=== PATIENT | female | born 1945 | race Caucasian/White ===

== ENCOUNTER 2019-11-13 10:00 | Outpatient (CLI) | payer MEDICARE, SELFPAY ==
--- NOTE | ~2019-11-13 | US_ITS ---
EXAMINATION: US pelvic complete w TV EXAM DATE: 11/13/2019 11:21 INDICATION: Low pelvic pain. Ablation. TECHNIQUE: Pelvic transabdominal and transvaginal sonogram was performed. There are multiple graysca le and Doppler images available for interpretation. There is no prior study for comparison. FINDINGS: Uterus measures 5.7 x 5.0 x 2.5 cm, and is morphologically normal. Endometrial stripe nas sures 3 mm, within normal limits. Trace fluid in the cervical canal. There is no free pelvic fluid. Right adnexa: The right ovary is normal in size and morphology. Left adnexa: The ovary is not identified. There is no adnexal mass. IMPRESSION: 1. Trace cervical canal fluid. 2. Normal endometrial thickness. Reviewed, dictated and finalized at location A. [employer]
== END 2019-11-13 10:01 | disposition home or self-care (01) ==
PROVIDERS: PCP Nurse Practitioner Family; Visit Provider Nurse Practitioner Family
DX: R10.2 Pelvic and perineal pain (principal)
CPT/HCPCS: 76830; 76856

== ENCOUNTER 2020-03-16 09:05 | Outpatient (CLI) | payer MEDICARE, SELFPAY ==
--- NOTE | ~2020-03-16 | US_ITS ---
EXAMINATION: US retroperitoneal comp DATE: 03/16/2020 09:53 INDICATION: Right renal cancer TECHNIQUE: Multiple ultrasound grayscale images of the kidneys were obtained. COMPARISON: Ultrasound dated 02/11/[address] dated 02/17/2019 FINDINGS: The right kidney measures 9.4 x 4.0 x 4.6 cm. The left kidney measures 11.0 x 4.7 x 4.4 cm. The kidne ys demonstrate normal echogenicity. Small region of cortical thinning with a few shadowing surgical c lips at the lower pole of the right kidney likely at the site of prior partial nephrectomy for a repo rted renal cell carcinoma. No other right renal lesions identified. There is a 1 cm hyperechoic lesio n at the medial left kidney which is without evident correlate on the prior studies. There is no hydr onephrosis in either kidney. No stones identified. The bladder is normal. IMPRESSION: 1. Indeterminate 1 cm hyperechoic nodule at the LEFT kidney which raises concern for neoplasm which could be either benign or malignant. Recommend further evaluation with pre and postcontrast MRI or CT . 2. Small region of cortical scarring at the inferior pole of the RIGHT kidney likely related to prior partial nephrectomy for reported renal cell carcinoma. Reviewed, dictated and finalized at location A. IMPRESSION: 1. Indeterminate 1 cm hyperechoic nodule at the LEFT kidney which raises deborah rn for neoplasm which could be either benign or malignant. Recommend further ev aluation with pre and postcontrast MRI or CT. 2. Small region of cortical scarring at the inferior pole of the RIGHT kidney l ikely related to prior partial nephrectomy for reported renal cell carcinoma.
== END 2020-03-16 09:06 | disposition home or self-care (01) ==
PROVIDERS: PCP Family Medicine
DX: C64.1 Malignant neoplasm of right kidney, except renal pelvis (principal)
CPT/HCPCS: 76770

== ENCOUNTER 2020-04-20 08:54 | Outpatient (CLI) | payer MEDICARE, SELFPAY ==
[2020-04-20 10:15] LABS: Thyroid Stimulating Hormone 0.84 uIU/mL (0.36-3.74)
[2020-04-22 07:50] LABS: Estimated Glomerular Filt Rate 52
== END 2020-04-20 08:55 | disposition home or self-care (01) ==
LOC: CHSLAB 08:57
PROVIDERS: PCP Family Medicine; Visit Provider Family Medicine
DX: L65.9 Nonscarring hair loss, unspecified (principal)
CPT/HCPCS: 36415; 84443

== ENCOUNTER 2020-04-22 07:36 | Outpatient (CLI) | payer MEDICARE, SELFPAY ==
--- NOTE | ~2020-04-22 | CT_ITS ---
EXAMINATION: CT abdomen wo/w con DATE: 04/22/2020 08:28 INDICATION: Left renal abnormality TECHNIQUE: Computed tomography (CT) of the abdomen was performed without and subsequently with 100 cc Omnipaque 350 intravenous contrast. Automated exposure control and iterative reconstruction techniqu e were employed. Exam dose: 507.72 mGy-cm total exam DLP. COMPARISON: 01/28/2018 CT abdomen pelvis FINDINGS: The lung bases are clear of infiltrate or consolidation. Borderline heart size. Pacemaker l letha are noted in the right atrium and right ventricle. No pericardial effusion. Small sliding hiatal hernia. 11 mm left hepatic cyst. No other hepatic space-occupying mass lesion is evident. Mild bile duct prominence is likely secondary to cholecystectomy. Normal splenic size No pancreatic mass lesion, calcification or pancreatic duct dilatation. Status post right partial nephrectomy. Approximately 7 mm fat-containing circumscribed lesion of the anteromedial aspect of the mid left kid marie, most consistent with benign renal angiomyolipoma. No suspicious renal mass lesion is evident. No renal or proximal to mid ureteral calculus or hydroureteronephrosis is evident. There is extensive calcification of the abdominal aorta as well as some calcification of the aortic b ranches including iliac arteries but no abdominal aortic aneurysm. No intraperitoneal or retroperitoneal mass lesion or adenopathy or ascites. There is diverticulosis of the left and right colon; no CT evidence of diverticulitis. No bowel obstr uction, bowel wall thickening, pneumatosis or intraperitoneal free air. There is a fat-containing umbilical hernia measuring up to 2.1 cm transverse and 1.8 cm AP dimension and 2 cm vertical dimension. Degenerative changes of the included lower thoracic spine and the lumbar spine including severe degen erative disc disease at L5-S1. IMPRESSION: 7 mm left renal probable benign angiomyolipoma Status post right partial nephrectomy 11 mm left hepatic cyst Small sliding hiatal hernia Diverticulosis of left and right colon Reviewed, dictated and finalized at Location A. Reviewed, dictated and finalized at location A.
== END 2020-04-22 07:37 | disposition home or self-care (01) ==
LOC: CHSIMG 07:38
PROVIDERS: PCP Family Medicine; Visit Provider Urology
DX: C64.1 Malignant neoplasm of right kidney, except renal pelvis (principal)
CPT/HCPCS: 74170; Q9965

== ENCOUNTER 2020-06-23 00:45 | Outpatient (CLI) | payer MEDICARE, SELFPAY ==
[2020-06-23 18:29] LABS: SARS-CoV-2 RNA PCR Negative
== END 2020-06-23 00:46 | disposition home or self-care (01) ==
LOC: ANHCOVIDDT 00:46
PROVIDERS: PCP Family Medicine; Visit Provider Specialist
DX: Z01.812 Encounter for preprocedural laboratory examination (principal); Z20.828 Contact with and (suspected) exposure to other viral communicable diseases
CPT/HCPCS: 87635; C9803; U0003

== ENCOUNTER 2020-06-25 05:20 | Day surgery (SDC) | payer MEDICARE, SELFPAY ==
[2020-06-24 14:28] VITALS: BMI 28.8
--- NOTE | 2020-06-25 07:15 | SUR.PREOP ---
ARRIVED TO [facility] 6 AMBULATORY W/ AT SIDE FOR SCHEDULED PPM GENERATOR CHANGE W/ DR. JASSO. A&OX4, DENIES PAIN OR SOB. GAIT STEADY. ORIENTED TO ROOM, PLAN OF CARE, PROCEDURE. QUESTIONS ANSWERED. IV STARTED, LABS SENT, VS OBTAINED, CHEST PREP COMPLETED, CONSENT SIGNED. WILL CONTINUE TO MONITOR.
[2020-06-25 07:25] VITALS: BP 121/71; PULSE 65; RESP 22; TEMP 36.5; O2SAT 98
[2020-06-25 07:30] VITALS: BMI 28.6
[2020-06-25 07:41] LABS: Basophils Absolute Auto 0.1 K/mm3 (0.0-0.1); Basophils Percent Auto 0.8 % (0.2-1.2); Eosinophils Absolute Auto 0.3 K/mm3 (0-0.3); Eosinophils Percent Auto 2.5 % (0-4.4); Hematocrit 45.1 % (37.0-47.0); Hemoglobin 15.2 g/dL (12.0-15.0); Immature Granulocyte Absolute 0.04 K/mm3 (0.00-0.031); Immature Granulocyte Percent A 0.4 % (0-0.5); Lymphocytes Absolute Auto 3.43 K/mm3 (0.9-3.2); Lymphocytes Percent Auto 34.5 % (18.3-44.2); Mean Corpuscular HGB Conc 33.7 g/dl (32-36); Mean Corpuscular Hemoglobin 29.7 pg (26-34); Mean Corpuscular Volume 88.3 fl (80-100); Mean Platelet Volume 12.6 fl (7.4-10.4); Monocytes Percent Auto 9.7 % (2.6-8.5); Neutrophils Absolute Auto 5.2 K/mm3 (1.3-6.7); Neutrophils Percent Auto 52.1 % (45.5-73.1); Platelet Count Result 230 k/mm3 (150-375); Red Blood Count 5.11 M/mm3 (4.2-5.4); Red Cell Distribution Width 12.5 % (11.5-14.5); White Blood Count 9.9 K/mm3 (4.5-10.0)
[2020-06-25 07:51] LABS: INR 1.1; Prothrombin Time 13.6 Seconds (11.1-14.7)
[2020-06-25 08:35] LABS: Anion Gap 8 mmol/L (8-16); Blood Urea Nitrogen 17 mg/dL (7-17); Calcium 9.7 mg/dL (8.4-10.2); Carbon Dioxide 27 mmol/L (22-30); Chloride 103 mmol/L (98-107); Estimated CRCL calculation 50 ml/min; Estimated Glomerular Filt Rate > 60; Glucose 191 mg/dL (65-105); Potassium 3.3 mmol/L (3.4-5.0); Sodium 138 mmol/L (137-145)
--- NOTE | 2020-06-25 09:26 | WPDMODSED ---
Moderate Sedation Note-Pt Data Patient Data Diagnosis: Permanent pacemaker at [facility] Present Complaint: no complaints Procedure to be performed/Plan: pacemaker generator change Allergies Allergy/AdvReac Type Severity Reaction Status Date / Time adhesive tape Allergy Intermediate Blister Verified 06/25/20 07:52 codeine Allergy Intermediate Gastrointestinal Verified 06/25/20 07:52 Upset egg Allergy Intermediate Unknown Verified 06/25/20 07:52 morphine Allergy Intermediate unknown Verified 06/25/20 07:52 Kvzdcfp-Fzu-Cfs Reductase Allergy Intermediate unknown Verified 06/25/20 07:53 Inhibitor sulfamethoxazole [Bactrim] Allergy Intermediate unknown Verified 06/25/20 07:53 sulfamethizole Allergy Unknown unknown Verified 06/25/20 07:53 trimethoprim Allergy Unknown unknown Verified 06/25/20 07:53 terfenadine [From Seldane] Allergy Unknown Verified 06/25/20 07:52 tape Allergy Intermediate Blister Uncoded 06/25/20 07:52 Home Medications Medication Instructions Recorded Confirmed Type aspirin 81 mg tablet,delayed 81 mg PO DAILY 10/28/19 06/24/20 History release mometasone 50 mcg/actuation nasal 2 spray NASAL PRN 10/28/19 06/24/20 History spray oxybutynin chloride 5 mg tablet 5 mg PO DAILY 10/28/19 06/25/20 History loratadine 10 mg tablet 10 mg PO DAILY PRN 01/27/20 06/24/20 History metformin 500 mg tablet 500 mg PO BID #90 tablet 06/21/20 06/24/20 Rx lisinopril 20 1 tablet PO DAILY #90 tablet 06/22/20 06/25/20 Rx mg-hydrochlorothiazide 25 mg tablet amlodipine 5 mg PO DAILY 06/24/20 06/24/20 History biotin 10,000 mcg PO PRN 06/24/20 06/24/20 History calcium carbonate [Tums] 500 mg PO PRN PRN 06/24/20 06/24/20 History carvedilol 25 mg PO BID 06/24/20 06/25/20 History garlic [Odor Free Garlic-X] 1 tablet PO QAM 06/24/20 06/24/20 History krill oil 500 mg PO DAILY 06/24/20 06/24/20 History Sedation/Anesthesia: No previous sedation/anesthesia problems (including family history). PMFSH Social History Social History Smoking status: Former smoker Tobacco type: cigarettes Smoking end date: 10/08/99 Alcohol intake: never Substance use: never Substance use type: does not use Living arrangements: with family Gender identity (if verbalized by the patient): Female Sexual Orientation (if Verbalized by the Patient): Straight or Heterosexual Spiritual care concerns: No Mod Sed Physical Exam Physical Exam Pre Procedural Exam: Normal: Appearance, Neck, Throat, Airway, Lungs, Heart Size, Heart Rate, Heart Rhythm, Neuro Exam and Extremities Hours since solid foods: 12 Hours since liquid intake: 12 Internal Medicine - PN: Obj Da Vital Signs Vital Signs: Vital Signs - 24 hr 06/25/20 07:25 Temperature 36.5 C Pulse Rate 65 Respiratory Rate 22 H Blood Pressure 121/71 Pulse Oximetry 98 Labs CBC & Chem 7: 06/25/20 07:25 06/25/20 07:59 Labs: Laboratory Results - last 24 hr 06/25/20 06/25/20 06/25/20 07:25 07:25 07:59 WBC 9.9 RBC 5.11 Hgb 15.2 H Hct 45.1 MCV 88.3 MCH 29.7 MCHC 33.7 RDW 12.5 Plt Count 230 MPV 12.6 H Immature Gran % (Auto) 0.4 Neut % (Auto) 52.1 Lymph % (Auto) 34.5 Faulk % (Auto) 9.7 H Eos % (Auto) 2.5 Baso % (Auto) 0.8 Lymph # (Auto) 3.43 H Faulk # (Auto) 1.0 H Eos # (Auto) 0.3 Baso # (Auto) 0.1 Abs Immat Gran (auto) 0.04 H Absolute Neuts (auto) 5.2 Absolute Nucleated RBC 0.0 Nucleated RBC % 0.0 PT 13.6 INR 1.1 Sodium 138 Potassium 3.3 L Chloride 103 Carbon Dioxide 27 Anion Gap 8 BUN 17 Creatinine 0.80 Estim Creat Clear Calc 50 Estimated GFR > 60 Glucose 191 H Calcium 9.7 ASA Classification/Sedation ASA Classification/Sedation ASA Class: II Emergent: No Risks: Risks, benefits and alternatives explained and patient/family accepted plan for sedation. Patient re-evalua
--- NOTE | 2020-06-25 10:07 | ECG_ITS ---
Measurements Intervals [place] Rate: 61 P: 16 IL: 177 QRS: -84 QRSD: 223 T: 91 QT: 562 QTc: 567 Interpretive Statements ELECTRONIC ATRIAL PACEMAKER WITH INHIBITION ELECTRONIC VENTRICULAR PACEMAKER BASELINE ARTIFACT- I, III, AVR, AVL, V2 NO FURTHER INTERPRETATION IS POSSIBLE ATYPICAL ECG Electronically Signed On 06-25-2020 12:00:42 CDT by Christopher Bennett D.O.
--- NOTE | 2020-06-25 10:10 | WPDCARDPROC ---
Cardiac Cath Procedure Note Date of procedure:: 06/25/20 Performing physician:: Toy Escalera MD Indication:: permanent pacemaker implanted for treatment of complete heart block. Device at [facility] Brief clinical history:: this is a 75-year-old woman who has a chronically implanted Medtronic dual-chamber pacemaker for treatment of complete heart block. She currently has her 2nd generator in place and the device is at [facility] and is admitted today for elective generator change Procedure Procedure performed:: explantation of depleted pacemaker pulse generator implantation of new dual-chamber pulse generator using existing leads Sedation/Medication given:: fentanyl 50 mg Versed 2 mg case start time 9:42 a.m. case end time 10:07 a.m. sedation provided by Wanda Jackson RN, trained observer Access site:: existing chronic left subclavian pocket Estimated blood loss:: 10 cc Procedure note:: patient was brought to the cardiac catheterization lab in postabsorptive state the left anterior chest wall was prepped and draped in the normal sterile fashion. The chronically implanted pacemaker pocket was easily identified. 1% lidocaine was used to provide local anesthesia over the incision. I made an incision using the plasma blade overlying the inferior of the 2 incisions the palpable generator in the pocket. The incision was then carried down to the fibrous pocket than the plasma blade was used to open the fibrous pocket. Electrocautery was used to provide cutaneous hemostasis. Following opening the pocket the chronically implanted generator in the attached leads were removed and found to be visually intact and unremarkable in appearance. The torque wrench was used to disconnect the atrial lead and connected to the new generator as detailed below. Following this the torque wrench was used to disconnect the ventricular lead and this was transferred to the new generator the detailed below. Following this the pocket was irrigated with antibiotic infused saline. The patient had a Tyrex antibiotic sleeve placed over the generator trimmed to size of the generator and this was placed into the pocket. The pocket was then closed in layers using 3 0 Vicryl in an interrupted fashion for the subcutaneous tissue and 4 0 Vicryl running subcuticular fashion for the skin. The pocket was then dressed with a Aquacel dressing. The patient was taken to the holding area in stable condition there were no apparent procedural complications and the procedure was well tolerated. Findings:: The explanted device is Medtronic dual-chamber pacemaker model ADD R01 , serial [id number]. device was regionally implanted 05/20/2009. The newly implanted generator is a Medtronic dual-chamber pacemaker model WIDR01 serial number [id number]. device is programmed in the DDDR mode lower rate limit 60 upper rate limit 130 AV delay 180/150 millisecond. The atrial lead is a chronically implanted Medtronic bipolar lead [id number], serial number [id number]. the P-waves are sensed at 1.4 mV pacing threshold 1.0 volts at 0.4 milliseconds pacing impedance 361 Ohms. the ventricular lead is a Medtronic bipolar lead model 5076-52 serial [id number]. there are no intrinsic R-waves to sense. Threshold is 0.75 volts at 0.4 milliseconds pacing impedance 931 over Conclusion:: 1. successful uncomplicated explantation of depleted permanent pacemaker pulse generator 2. successful implantation of new permanent Medtronic dual-chamber pulse generator for ongoing treatment of complete heart block in this 75-year-old patient [facility] Escalera [facility]
[2020-06-25 10:30] VITALS: BP 98/62; PULSE 60; RESP 12; TEMP 36.3; O2SAT 96
[2020-06-25 10:45] VITALS: BP 95/63; PULSE 66; RESP 16; O2SAT 98
[2020-06-25 11:00] VITALS: BP 98/61; PULSE 67; RESP 17; O2SAT 97
[2020-06-25 11:15] VITALS: BP 99/63; PULSE 66; RESP 16; O2SAT 98
[2020-06-25 11:30] VITALS: BP 92/66; PULSE 65; RESP 17; O2SAT 98
--- NOTE | 2020-06-25 11:50 | SUR.PHASEII ---
Pt. and spouse given discharge education on wound care, prescription, and follow-up appointment. Pt. and spouse verbalize understanding of discharge education. Pt. transported to vehicle via wheelchair.
== END 2020-06-25 12:04 | disposition home or self-care (01) ==
PROVIDERS: PCP Family Medicine; Visit Provider Specialist
PROC: 0JPT0PZ Removal of Cardiac Rhythm Related Device from Trunk Subcutaneous Tissue and Fascia, Open Approach (ICD-10-PCS; CPT 33228; principal; 2020-06-25 08:30)
DX: Z45.010 Encounter for checking and testing of cardiac pacemaker pulse generator [battery] (principal); I44.2 Atrioventricular block, complete; I25.10 Atherosclerotic heart disease of native coronary artery without angina pectoris; I35.1 Nonrheumatic aortic (valve) insufficiency; Z79.82 Long term (current) use of aspirin; Z79.84 Long term (current) use of oral hypoglycemic drugs; Z87.891 Personal history of nicotine dependence
CPT/HCPCS: 33213; 36415; 80048; 85025; 85610; C1785; J0690; J2250; J3010; J7040

== ENCOUNTER 2020-06-30 12:27 | Emergency (ER) | payer MEDICARE, SELFPAY ==
[2020-06-30] VITALS (12 sets, daily range): BP systolic 103–137; BP diastolic 64–76; PULSE 59–80; RESP 20–22; TEMP 36.7–37.1; O2SAT 94–99
--- NOTE | ~2020-06-30 | XR_ITS ---
EXAMINATION: XR chest 2V DATE: 06/30/2020 13:17 INDICATION: Dyspnea. TECHNIQUE: Frontal and lateral views of the chest were obtained on 3 radiographs. COMPARISON: Chest 2 views 03/07/2017, chest CT 02/17/2019 FINDINGS: There are peripheral reticular opacities in the lower lung zones. No pleural effusion or pn eumothorax. Cardiomegaly is noted. There is a left chest wall pacer with leads in the right atrium an d right ventricle. Surgical clips in the right upper quadrant are likely from cholecystectomy. IMPRESSION: 1. Peripheral reticular opacities in the lower lung zones, consistent with mild pulmonary edema versu s mild chronic interstitial lung disease. 2. Cardiomegaly. Reviewed, dictated and finalized at location A. IMPRESSION: 1. Peripheral reticular opacities in the lower lung zones, consistent with mild pulmonary edema versus mild chronic interstitial lung disease. 2. Cardiomegaly.
--- NOTE | ~2020-06-30 | CT_ITS ---
EXAMINATION: CTA chest PE protocol DATE: 06/30/2020 14:32 INDICATION: Dyspnea. TECHNIQUE: Computed tomography angiography (CTA) of the chest was performed with 100 mL Omnipaque-350 intravenous contrast timed to evaluate the pulmonary arteries. Coronal maximum intensity projection 3D-reconstructions were created by the technologist. Automated exposure control and iterative reconst ruction technique were employed. The dose-length product was 329.05 mGy-cm. COMPARISON: Chest CT 02/17/2019, CT abdomen 04/22/2020 FINDINGS: Again seen are diffuse peripheral reticular opacities in the lungs. No bronchiectasis or ho neycombing. Again seen are a few scattered nodules in the lungs bilaterally measuring up to 4 mm, lik eric benign. No pleural effusion. There is a 3.2 cm nodule in right thyroid lobe that was benign at [facility] on 11/07/17. Cardiomegaly is noted. There are coronary artery calcifications. There is a left cruz st wall pacer with leads in the right atrium and right ventricle. There is no pulmonary embolus. Ther e is a small sliding hiatal hernia. There are changes of cholecystectomy. There is a 7 mm mass of fat in left kidney, consistent with an angiomyolipoma. There is a 10 mm cyst in the liver. There is bernice re thoracic spondylosis. IMPRESSION: 1. No pulmonary embolus. 2. Diffuse peripheral reticular opacities in the lungs, consistent with mild chronic interstitial jayant g disease. 3. Cardiomegaly. 4. Small sliding hiatal hernia. Reviewed, dictated and finalized at location A. IMPRESSION: 1. No pulmonary embolus. 2. Diffuse peripheral reticular opacities in the lungs, consistent with mild ch ronic interstitial lung disease. 3. Cardiomegaly. 4. Small sliding hiatal hernia.
--- NOTE | 2020-06-30 12:37 | ECG_ITS ---
Measurements Intervals [place] Rate: 65 P: 52 AR: 212 QRS: -87 QRSD: 221 T: 87 QT: 538 QTc: 562 Interpretive Statements ATRIAL SENSE- ELECTRONIC VENTRICULAR PACEMAKER BASELINE ARTIFACT- I, II, III, AVR, AVL, AVF NO FURTHER INTERPRETATION IS POSSIBLE ATYPICAL ECG Electronically Signed On 06-30-2020 14:31:35 CDT by Christopher Bennett D.O.
--- NOTE | 2020-06-30 12:43 | ED.SOB ---
HPI - SOB/Dyspnea General Chief Complaint: Shortness of Breath/Dyspnea Stated Complaint: SOB Time Seen by Provider: 06/30/20 12:43 Source: patient Mode of arrival: ambulatory Limitations: no limitations History of Present Illness HPI Narrative: 76-year-old woman with a history of complete heart block who is 2 days status post replacement of her pacemaker comes in today complaining of sudden shortness of breath while she was out today. Patient states that she has had no chest pain, nausea, vomiting, sweating, lightheadedness , leg swelling or tenderness, or weakness. Exertion makes the shortness of breath worse. she denies having previous similar symptoms. MD elicited complaint: shortness of breath Pertinent past history: congestive heart failure and other ( Coronary artery disease, AR/MR) Onset (ago): hour(s) (1) Timing: constant Severity: severe Exacerbating factors: exertion Relieving factors: nothing Treatment prior to arrival: none Related Data Home oxygen amount: none Home Medications Medication Instructions Recorded Confirmed aspirin 81 mg tablet,delayed 81 mg PO DAILY 10/28/19 06/30/20 release mometasone 50 mcg/actuation nasal 2 spray NASAL PRN 10/28/19 06/30/20 spray oxybutynin chloride 5 mg tablet 5 mg PO DAILY 10/28/19 06/30/20 loratadine 10 mg tablet 10 mg PO DAILY PRN 01/27/20 06/30/20 amlodipine [Norvasc] 5 mg PO HS 06/24/20 06/30/20 biotin 10,000 mcg PO PRN 06/24/20 06/30/20 calcium carbonate [Tums] 500 mg PO PRN PRN 06/24/20 06/30/20 carvedilol 25 mg PO BID 06/24/20 06/30/20 garlic [Odor Free Garlic-X] 1 tablet PO QAM 06/24/20 06/30/20 krill oil 500 mg PO DAILY 06/24/20 06/30/20 calcium carbonate-vitamin D3 1 tablet PO DAILY 06/30/20 06/30/20 [Caltrate with Vitamin D3] lutein 20 mg PO DAILY 06/30/20 06/30/20 metformin 250 mg PO DAILY 06/30/20 06/30/20 metformin 500 mg PO HS 06/30/20 06/30/20 sy-eg-PH-vit K-vvanh-[id number]-coQ10 1 cap PO DAILY 06/30/20 06/30/20 [Daily Multivitamin] Allergies Allergy/AdvReac Type Severity Reaction Status Date / Time adhesive tape Allergy Intermediate Blister Verified 06/30/20 13:09 codeine Allergy Intermediate Gastrointestinal Verified 06/30/20 13:09 Upset egg Allergy Intermediate Unknown Verified 06/30/20 13:09 morphine Allergy Intermediate unknown Verified 06/30/20 13:09 Cdkorfa-Ptv-Upe Reductase Allergy Intermediate unknown Verified 06/30/20 13:09 Inhibitor sulfamethoxazole [Bactrim] Allergy Intermediate unknown Verified 06/30/20 13:09 sulfamethizole Allergy Unknown unknown Verified 06/30/20 13:09 trimethoprim Allergy Unknown unknown Verified 06/30/20 13:09 terfenadine [From Seldane] Allergy Unknown Verified 06/30/20 13:09 tape Allergy Intermediate Blister Uncoded 06/30/20 13:09 Review of Systems Constitutional: Constitutional: Denies chills and Denies fever(s) Eyes: Eyes: Denies change in vision and Denies photophobia ENT: Denies dysphagia, Denies nasal congestion and Denies sore throat Cardiovascular: Cardiovascular: Denies chest pain and Denies radiating jaw, neck or arm pain Respiratory: Respiratory: Denies chest congestion, Denies cough, Reports dyspnea and Denies wheezing Gastrointestinal: Gastrointestinal: Denies abdominal pain, Denies nausea and Denies vomiting Genitourinary: Genitourinary: Denies nocturia and Denies dysuria Musculoskeletal: Musculoskeletal: Denies back pain, Denies arthralgias and Denies joint swelling Integumentary/Breasts: Skin/Breast: Denies pruritus, Denies erythema and Denies rash Neurologic: Denies vertigo, Denies dizziness and Denies syncope Hematologic/Lymphatic: Hematologic/Lymphatic: Denies easy bleeding and Denies easy bruising Allergic/Immunologic: Allergic/Immunologic: Denies lip swelling and Denies tongue swelling PMFSH Past Medical History Medical History (Updated 06/30/20 @ 16:25 by Giuseppe Wilkinson MD) DM2 (diabetes mellitus, type 2) Esophageal stricture Heart block AV third degree Hiatal he
[2020-06-30 13:05] LABS: Basophils Absolute Auto 0.04 K/mm3 (0.00-0.10); Basophils Percent Auto 0.5 % (0.0-1.0); Eosinophils Absolute Auto 0.17 K/mm3 (0.02-0.50); Hematocrit 43.9 % (35.0-42.0); Hemoglobin 14.7 g/dL (11.7-13.8); Immature Granulocyte Absolute 0.03 K/mm3 (0.00-0.00); Immature Granulocyte Percent A 0.4 % (0.0-0.0); Lymphocytes Absolute Auto 3.23 K/mm3 (1.10-4.50); Lymphocytes Percent Auto 38.1 % (18.0-42.0); Mean Corpuscular HGB Conc 33.5 g/dL (32.0-36.0); Mean Corpuscular Hemoglobin 29.5 pg (27.0-31.0); Mean Platelet Volume 11.5 fl (9.2-11.8); Monocytes Absolute Auto 0.48 K/mm3 (0.10-0.90); Monocytes Percent Auto 5.7 % (2.0-11.0); Neutrophils Absolute Auto 4.5 K/mm3 (1.7-7.2); Neutrophils Percent Auto 53.3 % (50.0-70.0); Platelet Count Result 301 K/mm3 (150-420); Red Blood Count 4.99 M/mm3 (4.20-5.40); Red Cell Distribution Width 12.2 % (11.6-14.4); White Blood Count 8.5 K/mm3 (4.8-10.8)
[2020-06-30 13:16] LABS: Partial Thromboplastin Time 24.4 SEC (22.3-31.6)
[2020-06-30 13:22] LABS: BNP 48 pg/mL (0-100)
[2020-06-30 13:32] LABS: Alanine Aminotransferase 18 U/L (14-59); Albumin Level 3.6 g/dL (3.4-5.0); Alkaline Phosphatase 64 U/L (46-116); Anion Gap 9 mmol/L (8-16); Aspartate Amino Transferase 14 U/L (15-37); Bilirubin,Total 0.5 mg/dL (0.00-1.00); Blood Urea Nitrogen 13 mg/dL (7-18); Calcium 9.6 mg/dL (8.5-10.1); Carbon Dioxide 28 mmol/L (21-32); Chloride 102 mmol/L (98-108); Estimated CRCL calculation 37 ml/min; Estimated Glomerular Filt Rate 54; Glucose 206 mg/dL (70-99); Osmolality Calculated 294 mOsm/kg (285-295); Potassium 3.2 mmol/L (3.5-5.1); Sodium 139 mmol/L (136-145); Total Protein 8.3 g/dL (6.4-8.2); Troponin I 0.05 ng/mL (0.00-0.056)
[2020-06-30 13:36] LABS: Prothrombin Time 10.7 Seconds (9.64-11.0)
[2020-06-30 13:47] LABS: D Dimer 1.44 mg/L (0.19-0.50)
[2020-06-30 16:10] LABS: Troponin I 0.06 ng/mL (0.00-0.056)
[2020-06-30] MEDS: ENOXAPARIN 100 MG/ML SYRINGE (17:07)
[2020-06-30] MEDS: ASPIRIN 81 MG CHEWABLE TABLET 324 MG PO (17:07)
--- NOTE | 2020-06-30 17:18 | PC.NURSE ---
1707 lOVENOX 70MG SUBQ GIVEN IN RIGHT LOWER ABD
[2020-06-30 19:05] LABS: Troponin I 0.06 ng/mL (0.00-0.056)
--- NOTE | 2020-06-30 20:26 | PC.NURSE ---
2024 SPOKE WITH [facility] ACCESS NO BED AT THIS TIME
--- NOTE | 2020-06-30 23:37 | PC.NURSE ---
report to HAKAN , [facility] staff. pt loaded to cot. alert and stable . no complaints voiced. discomfort to iv site to right AC. pt declined to pull and switch sites at this time. will wait for [facility] staff to decide if needed per pt.
== END 2020-06-30 23:38 | disposition short-term general hospital (02) ==
PROVIDERS: Emergency Provider Emergency Medicine; PCP Family Medicine
DX: R06.00 Dyspnea, unspecified (principal); R79.9 Abnormal finding of blood chemistry, unspecified; R94.39 Abnormal result of other cardiovascular function study; E11.9 Type 2 diabetes mellitus without complications; E78.5 Hyperlipidemia, unspecified; I10 Essential (primary) hypertension; Z87.891 Personal history of nicotine dependence
CPT/HCPCS: 36415; 71046; 71275; 80053; 83880; 84484; 85025; 85380; 85610; 85730; 93005; 96372; 99285; A9270; J1650; Q9965

== ENCOUNTER 2020-07-15 09:10 | Outpatient (CLI) | payer MEDICARE, SELFPAY ==
[2020-07-15 09:30] LABS: Basophils Absolute Auto 0.06 K/mm3 (0.00-0.10); Basophils Percent Auto 0.7 % (0.0-1.0); Eosinophils Absolute Auto 0.24 K/mm3 (0.02-0.50); Hematocrit 42.5 % (35.0-42.0); Hemoglobin 14.1 g/dL (11.7-13.8); Immature Granulocyte Absolute 0.02 K/mm3 (0.00-0.00); Immature Granulocyte Percent A 0.2 % (0.0-0.0); Lymphocytes Absolute Auto 3.04 K/mm3 (1.10-4.50); Lymphocytes Percent Auto 37.9 % (18.0-42.0); Mean Corpuscular HGB Conc 33.2 g/dL (32.0-36.0); Mean Corpuscular Hemoglobin 29.6 pg (27.0-31.0); Mean Corpuscular Volume 89.1 fL (78.0-102.0); Mean Platelet Volume 11.5 fl (9.2-11.8); Monocytes Absolute Auto 0.63 K/mm3 (0.10-0.90); Monocytes Percent Auto 7.9 % (2.0-11.0); Neutrophils Percent Auto 50.3 % (50.0-70.0); Platelet Count Result 262 K/mm3 (150-420); Red Blood Count 4.77 M/mm3 (4.20-5.40); Red Cell Distribution Width 12.6 % (11.6-14.4)
[2020-07-15 09:41] LABS: INR 1.1; Prothrombin Time 11.5 Seconds (9.64-11.0)
[2020-07-15 10:52] LABS: Alanine Aminotransferase 19 U/L (14-59); Albumin Level 3.7 g/dL (3.4-5.0); Alkaline Phosphatase 52 U/L (46-116); Anion Gap 9 mmol/L (8-16); Aspartate Amino Transferase < 10 U/L (15-37); Bilirubin,Total 0.8 mg/dL (0.00-1.00); Blood Urea Nitrogen 12 mg/dL (7-18); Calcium 9.9 mg/dL (8.5-10.1); Carbon Dioxide 30 mmol/L (21-32); Chloride 103 mmol/L (98-108); Estimated Glomerular Filt Rate > 60; Free T4 Free Thyroxine 1.03 ng/dL (0.76-1.46); Glucose 137 mg/dL (70-99); Magnesium 1.4 mg/dL (1.8-2.4); Osmolality Calculated 295 mOsm/kg (285-295); Potassium 3.6 mmol/L (3.5-5.1); Sodium 142 mmol/L (136-145); Thyroid Stimulating Hormone 1.77 uIU/mL (0.36-3.74); Total Protein 7.8 g/dL (6.4-8.2); Vitamin B12 212 pg/mL (193-986)
[2020-07-18 23:36] LABS: Vitamin D 25 Hydroxy 37 ng/mL (30-100)
== END 2020-07-15 09:11 | disposition home or self-care (01) ==
LOC: CHSLAB 09:17
PROVIDERS: PCP Nurse Practitioner Family; Visit Provider Internal Medicine Cardiovascular Disease
DX: E87.6 Hypokalemia (principal); L65.9 Nonscarring hair loss, unspecified; E83.42 Hypomagnesemia; Z79.899 Other long term (current) drug therapy; Z01.810 Encounter for preprocedural cardiovascular examination; I42.9 Cardiomyopathy, unspecified; R94.39 Abnormal result of other cardiovascular function study
CPT/HCPCS: 36415; 80053; 82306; 82607; 83735; 84439; 84443; 85025; 85610

== ENCOUNTER 2020-07-17 02:15 | Outpatient (CLI) | payer MEDICARE, SELFPAY ==
[2020-07-17 18:59] LABS: SARS-CoV-2 RNA PCR Negative
== END 2020-07-17 02:16 | disposition home or self-care (01) ==
LOC: ANHCOVIDDT 02:15
PROVIDERS: PCP Nurse Practitioner Family; Visit Provider Internal Medicine Cardiovascular Disease
DX: Z01.812 Encounter for preprocedural laboratory examination (principal); Z20.828 Contact with and (suspected) exposure to other viral communicable diseases
CPT/HCPCS: 87635; C9803; U0003

== ENCOUNTER 2020-07-20 01:24 | Day surgery (SDC) | payer MEDICARE, SELFPAY ==
[2020-07-19 14:33] VITALS: BMI 28.9
[2020-07-20] VITALS (8 sets, daily range): BP systolic 114–140; BP diastolic 49–97; PULSE 61–84; RESP 14–16; TEMP 36.3–36.5; O2SAT 96–100; BMI 28.6
--- NOTE | 2020-07-20 09:36 | WPDMODSED ---
Moderate Sedation Note-Pt Data Patient Data Allergies Allergy/AdvReac Type Severity Reaction Status Date / Time adhesive tape Allergy Intermediate Blister Verified 07/08/20 11:02 codeine Allergy Intermediate Gastrointestinal Verified 07/08/20 11:02 Upset egg Allergy Intermediate Unknown Verified 07/08/20 11:02 morphine Allergy Intermediate unknown Verified 07/08/20 11:02 Vgtikeo-Chg-Oom Reductase Allergy Intermediate unknown Verified 07/08/20 11:02 Inhibitor sulfamethoxazole [Bactrim] Allergy Intermediate unknown Verified 07/08/20 11:02 sulfamethizole Allergy Unknown unknown Verified 07/08/20 11:02 trimethoprim Allergy Unknown unknown Verified 07/08/20 11:02 terfenadine [From Seldane] Allergy Unknown Verified 07/08/20 11:02 tape Allergy Intermediate Blister Uncoded 07/08/20 11:02 Home Medications Medication Instructions Recorded Confirmed Type aspirin 81 mg tablet,delayed 81 mg PO DAILY 10/28/19 07/19/20 History release mometasone 50 mcg/actuation nasal 2 spray NASAL PRN 10/28/19 07/19/20 History spray loratadine 10 mg tablet 10 mg PO DAILY PRN 01/27/20 07/19/20 History biotin 10,000 mcg PO PRN 06/24/20 07/19/20 History carvedilol 25 mg PO BID 06/24/20 07/19/20 History garlic [Odor Free Garlic-X] 1 tablet PO QAM 06/24/20 07/19/20 History krill oil 500 mg PO DAILY 06/24/20 07/19/20 History calcium carbonate-vitamin D3 1 tablet PO DAILY 06/30/20 07/19/20 History [Caltrate with Vitamin D3] metformin 500 mg PO BID 06/30/20 07/19/20 History amlodipine 5 mg tablet 5 mg PO HS #90 tablet 07/09/20 07/19/20 Rx lisinopril 20 mg PO DAILY 07/19/20 07/19/20 History wdqpnfmbzsjq-rcn-kzee-FA-vit K 1 tablet PO DAILY 07/19/20 07/19/20 History [Adults Multivitamin] oxybutynin chloride 5 mg PO BID 07/19/20 07/19/20 History zinc sulfate 220 mg PO DAILY 07/19/20 07/19/20 History Current Medications: Active Medications Sodium Chloride (Normal Saline Iv) 500 mls @ 100 mls/hr IV CONT .Q5H [facility] Sedation/Anesthesia: No previous sedation/anesthesia problems (including family history). [facility] Past Medical History Medical History (Updated 07/08/20 @ 11:43 by Caren Oliveira NP) DM2 (diabetes mellitus, type 2) Esophageal stricture Heart block AV third degree Hiatal hernia Hyperlipidemia Hypertension Kidney malignancy Non-ST elevation myocardial infarction (NSTEMI) Overweight Pacemaker 2003 Peptic ulcer Thyroid nodule Urinary incontinence Surgical History Surgical History H/O prior ablation treatment uterine History of appendectomy History of cholecystectomy History of kidney removal Right Kidney Family History Family History Mother Diabetes mellitus Hypertension Father Hypertension Family history of cardiovascular disease Brother Family history of type 2 diabetes mellitus Hypertension Other Family history of arthritis Family history of gout Social History Social History Smoking status: Former smoker Tobacco type: cigarettes Smoking end date: 10/08/00 Alcohol intake: never Substance use: never Substance use type: does not use Living arrangements: with family Gender identity (if verbalized by the patient): Female Spiritual care concerns: No Mod Sed Physical Exam Physical Exam Pre Procedural Exam: Normal: Airway Hours since solid foods: 10 Hours since liquid intake: 10 Internal Medicine - PN: Obj Da Vital Signs Vital Signs: Vital Signs - 24 hr 07/20/20 09:05 Temperature 36.3 C L Pulse Rate 84 Respiratory Rate 15 Blood Pressure 116/97 H Pulse Oximetry 99 Meds/Results Medications: Active Medications Generic Name Dose Route Start Last Admin Trade Name Freq PRN Reason Stop Dose Admin Sodium Chloride 500 mls @ 100 mls/hr 07/20/20 06:00 Normal Saline Iv IV CONT
--- NOTE | 2020-07-20 10:19 | PM.IMHP ---
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 Patient has been experiencing worsening shortness of breath. Her recent echocardiogram showed apgg-bx-jalmpudf LV systolic dysfunction with segmental wall motion abnormality in addition to moderate AI. She had MPI done on 06/21/2020 which reported hypokinesis in the mid inferior segment, apical anterior segment, apical septal segment, apical inferior segment, apical lateral segment, apical segment; medium-sized area of moderate ischemia involving mid to apical inferior wall and apex consistent with ischemia. Based on this, she was brought to the catheterization laboratory evaluate her coronary anatomy. [facility], [facility] Past Medical History Medical History DM2 (diabetes mellitus, type 2) Esophageal stricture Heart block AV third degree Hiatal hernia Hyperlipidemia Hypertension Kidney malignancy Non-ST elevation myocardial infarction (NSTEMI) Overweight Pacemaker 2003 Peptic ulcer Thyroid nodule Urinary incontinence Surgical History Surgical History H/O prior ablation treatment uterine History of appendectomy History of cholecystectomy History of kidney removal Right Kidney Family History Family History Mother Diabetes mellitus Hypertension Father Hypertension Family history of cardiovascular disease Brother Family history of type 2 diabetes mellitus Hypertension Other Family history of arthritis Family history of gout Social History Social History Smoking status: Former smoker Tobacco type: cigarettes Smoking end date: 10/08/00 Alcohol intake: never Substance use: never Substance use type: does not use Living arrangements: with family Gender identity (if verbalized by the patient): Female Spiritual care concerns: No Meds Home Medications and Allergies Home Medications Medication Instructions Recorded Confirmed Type aspirin 81 mg tablet,delayed 81 mg PO DAILY 10/28/19 07/19/20 History release mometasone 50 mcg/actuation nasal 2 spray NASAL PRN 10/28/19 07/19/20 History spray loratadine 10 mg tablet 10 mg PO DAILY PRN 01/27/20 07/19/20 History biotin 10,000 mcg PO PRN 06/24/20 07/19/20 History carvedilol 25 mg PO BID 06/24/20 07/19/20 History garlic [Odor Free Garlic-X] 1 tablet PO QAM 06/24/20 07/19/20 History krill oil 500 mg PO DAILY 06/24/20 07/19/20 History calcium carbonate-vitamin D3 1 tablet PO DAILY 06/30/20 07/19/20 History [Caltrate with Vitamin D3] metformin 500 mg PO BID 06/30/20 07/19/20 History amlodipine 5 mg tablet 5 mg PO HS #90 tablet 07/09/20 07/19/20 Rx lisinopril 20 mg PO DAILY 07/19/20 07/19/20 History gpwepajyxslo-kkt-ctuy-FA-vit K 1 tablet PO DAILY 07/19/20 07/19/20 History [Adults Multivitamin] oxybutynin chloride 5 mg PO BID 07/19/20 07/19/20 History zinc sulfate 220 mg PO DAILY 07/19/20 07/19/20 History Allergies Allergy/AdvReac Type Severity Reaction Status Date / Time adhesive tape Allergy Intermediate Blister Verified 07/08/20 11:02 codeine Allergy Intermediate Gastrointestinal Verified 07/08/20 11:02 Upset egg Allergy Intermediate Unknown Verified 07/08/20 11:02 morphine Allergy Intermediate unknown Verified 07/08/20 11:02 Fgfuhln-Xql-Eds Reductase Allergy Intermediate unknown Verified 07/08/20 11:02 Inhibitor sulfamethoxazole [Bactrim] Allergy Int
--- NOTE | 2020-07-20 10:24 | WPDCARDPROC ---
Cardiac Cath Procedure Note Date of procedure:: 07/20/20 Performing physician:: Torin Prescott MD Procedure Procedure note:: LEFT HEART CATHETERIZATION AND CORONARY ANGIOGRAM REPORT DATE OF PROCEDURE: 07/20/2020 INDICATION FOR PROCEDURE: CHF, abnormal MPI BRIEF CLINICAL HISTORY:Lanette Irvin is a 75 year old female With past medical history of complete heart block status post Medtronic DDDR pacemaker on 05/20/2009; nonischemic cardiomyopathy with improvement of LV systolic function, valvular heart disease -AI/MR, hypertension, history of ?zjar-eo-urxpskca nonobstructive CAD, renal cell carcinoma status post right partial nephrectomy. Patient has been experiencing worsening shortness of breath. Her recent echocardiogram showed dojx-qo-zvkknwak LV systolic dysfunction with segmental wall motion abnormality in addition to moderate AI. She had MPI done on 06/21/2020 which reported hypokinesis in the mid inferior segment, apical anterior segment, apical septal segment, apical inferior segment, apical lateral segment, apical segment; medium-sized area of moderate ischemia involving mid to apical inferior wall and apex consistent with ischemia. Based on this, she was brought to the catheterization laboratory evaluate her coronary anatomy. Benefits and risks of the procedure were discussed with the patient in depth, and informed consent was obtained prior to the procedure. Risks of the procedure include but are not limited to vascular complications including groin hematoma, retroperitoneal bleed, vessel perforation; periprocedural UT, cardiac arrhythmias, stroke, contrast induced nephropathy, and . After discussing all the benefits, risks and alternatives, patient was willing to proceed with the procedure. PROCEDURES PERFORMED: 1. Left heart catheterization- Selective left and right coronary angiogram; left ventriculogram and hemodynamic assessment 2. Selective right common femoral angiogram and deployment of Angio-Seal hemostatic device 3. Moderate sedation-CPT code 30441 MODERATE SEDATION: Midazolam 1 mg; fentanyl 25 mcg; Start time 0954 , Stop time 1013 ; Total wuzk-sf-iciv time 20 minutes; Wanda Jackosn RN was trained observer for moderate sedation. ACCESS SITE: Right common femoral artery PROCEDURE NOTE: After obtaining informed consent, patient was brought to catheterization lab and prepped and draped in a usual sterile manner. After local anesthesia with lidocaine, right common femoral artery access was taken with micropuncture needle followed by insertion of a 5 Kiswahili sheath. Selective left and right coronary angiogram was performed using 5 Kiswahili JL4 and JR4 catheters respectively. Orthogonal views were taken. Next, a 5 Kisw[place]ili pigtail catheter was advanced in the LV cavity and was flushed with normal saline. LV pressure measurement was performed. After this, left ventriculogram was performed. The catheter was flushed again, and gradient across the aortic valve was measured on the pullback of the catheter. Dual-chamber pacemaker RA/RV leads are seen on fluoroscopy. Finally, selective right common femoral angiogram was performed followed by successful deployment of Angio-Seal vascular closure device. Patient tolerated procedure well without any immediate procedure related complications. FINDINGS: LEFT MAIN CORONARY: the left main coronary artery is a medium caliber vessel, with minimal narrowing in the distal most segment before it trifurcates into LAD, ramus intermedius and left circumflex branches. LEFT ANTERIOR DESCENDING ARTERY: The LAD is a medium caliber vessel in the proximal and mid segment, tapers distally and becomes a very small caliber vessel in the distal segment with slightly sluggish blood flow. No significant focal stenosis seen. Diagonal branches are small to medium-sized vessel without significant focal stenosis RAMUS INTERMEDIUS: A medium caliber vessel, bifurcates in the mid segment, no signif
--- NOTE | 2020-07-20 12:17 | SUR.PHASEII ---
1215-pt up to the chair. Groin soft and non-tender, no evidence of bleeding or hematoma noted. AOx4. Moderate right pedal pulse noted. Groin and pulse checked before and after rising. Will continue to monitor.
--- NOTE | 2020-07-20 13:15 | SUR.PHASEII ---
Pt. and daughter given discharge education following cardiac cath. Pt. and daughter verbalize understanding of discharge education. Pt. escorted to vehicle via wheelchair to be driven home by daughter.
== END 2020-07-20 13:20 | disposition home or self-care (01) ==
PROVIDERS: PCP Nurse Practitioner Family; Visit Provider Internal Medicine Cardiovascular Disease
PROC: 4A023N7 Measurement of Cardiac Sampling and Pressure, Left Heart, Percutaneous Approach (ICD-10-PCS; CPT 93452; principal; 2020-07-20 09:30)
DX: I25.10 Atherosclerotic heart disease of native coronary artery without angina pectoris (principal); R93.1 Abnormal findings on diagnostic imaging of heart and coronary circulation; I42.9 Cardiomyopathy, unspecified; I11.0 Hypertensive heart disease with heart failure; I50.20 Unspecified systolic (congestive) heart failure; I34.0 Nonrheumatic mitral (valve) insufficiency; I35.1 Nonrheumatic aortic (valve) insufficiency; E11.9 Type 2 diabetes mellitus without complications; I44.2 Atrioventricular block, complete; I25.2 Old myocardial infarction; E78.5 Hyperlipidemia, unspecified; Z95.0 Presence of cardiac pacemaker; Z90.5 Acquired absence of kidney; Z85.528 Personal history of other malignant neoplasm of kidney; Z79.82 Long term (current) use of aspirin; Z79.84 Long term (current) use of oral hypoglycemic drugs; Z87.891 Personal history of nicotine dependence
CPT/HCPCS: 93458; C1760; C1887; C1894; G0269; J1644; J2250; J3010; J7040

== ENCOUNTER 2020-07-30 17:15 | Outpatient (NON) | payer MEDICARE, SELFPAY | END 2020-07-30 17:16 | LOC: CHSLAB 17:17 | PROVIDERS: Visit Provider Family Medicine | DX: R10.9 Unspecified abdominal pain (principal) | CPT/HCPCS: 87086 ==

== ENCOUNTER 2021-07-01 10:59 | Outpatient (CLI) | payer MEDICARE, SELFPAY ==
--- NOTE | ~2021-07-01 | XR_ITS ---
EXAMINATION: XR hand LT 2V DATE: 07/01/2021 11:17 INDICATION: Left hand pain. TECHNIQUE: 2 views of left hand were obtained. COMPARISON: None. FINDINGS: There is ulnar subluxation of second distal phalanx with respect to the middle phalanx. No fracture. There is mild osteoarthritis of triscaphe joint and first carpometacarpal joint. There is s evere osteoarthritis of second and third distal interphalangeal joints and third proximal interphalan geal joint. There is mild to moderate osteoarthritis of most of the other interphalangeal joints. IMPRESSION: 1. Polyarticular osteoarthritis. Reviewed, dictated and finalized at location A.
== END 2021-07-01 11:00 | disposition home or self-care (01) ==
LOC: CHSIMG 11:02
PROVIDERS: PCP Family Medicine; Visit Provider Nurse Practitioner Family
DX: M79.642 Pain in left hand (principal)
CPT/HCPCS: 73120

== ENCOUNTER 2021-10-10 11:52 | Outpatient (CLI) | payer MEDICARE, SELFPAY ==
[2021-10-10 13:14] LABS: SARS-CoV-2 RNA PCR Positive (Negative)
== END 2021-10-10 11:53 | disposition home or self-care (01) ==
LOC: CHSLAB 11:56
PROVIDERS: PCP Family Medicine; Visit Provider Family Medicine
DX: U07.1 COVID-19 (principal)
CPT/HCPCS: C9803; U0003; U0005

== ENCOUNTER 2022-01-04 08:49 | Outpatient (CLI) | payer MEDICARE, SELFPAY ==
[2022-01-04 09:03] LABS: Hematocrit 44.7 % (35.0-42.0); Hemoglobin 14.8 g/dL (11.7-13.8); Mean Corpuscular HGB Conc 33.1 g/dL (32.0-36.0); Mean Corpuscular Volume 90.7 fL (78.0-102.0); Mean Platelet Volume 11.3 fl (9.2-11.8); Platelet Count Result 247 K/mm3 (150-420); Red Blood Count 4.93 M/mm3 (4.20-5.40); Red Cell Distribution Width 13.3 % (11.6-14.4); White Blood Count 9.3 K/mm3 (4.8-10.8)
[2022-01-04 09:11] LABS: Hemoglobin A1C 6.5 % (<5.7)
[2022-01-04 09:57] LABS: Alanine Aminotransferase 19 U/L (14-59); Albumin Level 3.7 g/dL (3.4-5.0); Alkaline Phosphatase 50 U/L (46-116); Anion Gap 9 mmol/L (8-16); Aspartate Amino Transferase 18 U/L (15-37); Bilirubin,Total 0.9 mg/dL (0.00-1.00); Blood Urea Nitrogen 16 mg/dL (7-18); Calcium 9.6 mg/dL (8.5-10.1); Carbon Dioxide 29 mmol/L (21-32); Chloride 102 mmol/L (98-108); Cholesterol 213 mg/dL (0-200); Estimated Glomerular Filt Rate > 60; Glucose 116 mg/dL (70-99); HDL Direct 47 mg/dL (40-60); LDL Cholesterol Calculated 140 mg/dL (<130); Osmolality Calculated 292 mOsm/kg (285-295); Potassium 3.9 mmol/L (3.5-5.1); Sodium 140 mmol/L (136-145); Total Protein 7.6 g/dL (6.4-8.2); Triglycerides 130 mg/dL (0-150)
[2022-01-04 09:58] LABS: Thyroid Stimulating Hormone Reflex 1.75 u/IU/mL (0.36-3.74)
== END 2022-01-04 08:50 | disposition home or self-care (01) ==
LOC: CHSLAB 08:52
PROVIDERS: PCP Family Medicine; Visit Provider Nurse Practitioner Family
DX: E78.5 Hyperlipidemia, unspecified (principal); I10 Essential (primary) hypertension; E11.9 Type 2 diabetes mellitus without complications; E04.1 Nontoxic single thyroid nodule
CPT/HCPCS: 36415; 80053; 80061; 83036; 84443; 85027

== ENCOUNTER 2022-01-30 09:58 | Outpatient (NON) | payer MEDICARE, SELFPAY | END 2022-01-30 09:59 | disposition home or self-care (01) | LOC: CHSLAB 10:00 | PROVIDERS: PCP Nurse Practitioner Family; Visit Provider Nurse Practitioner Family | DX: L03.90 Cellulitis, unspecified (principal) | CPT/HCPCS: 87070; 87205 ==

== ENCOUNTER 2022-03-25 09:44 | Outpatient (CLI) | payer MEDICARE, SELFPAY ==
[2022-03-25 11:42] LABS: SARS-CoV-2 RNA PCR Negative (Negative)
== END 2022-03-25 09:45 | disposition home or self-care (01) ==
PROVIDERS: PCP Family Medicine; Visit Provider Family Medicine
DX: Z01.818 Encounter for other preprocedural examination (principal); Z20.822 Contact with and (suspected) exposure to COVID-19
CPT/HCPCS: C9803; U0003; U0005

== ENCOUNTER 2022-05-19 08:57 | Outpatient (CLI) | payer MEDICARE, SELFPAY ==
[2022-05-19 09:47] LABS: Cholesterol 191 mg/dL (0-200); HDL Direct 44 mg/dL (40-60); LDL Cholesterol Calculated 119 mg/dL (<130); Triglycerides 139 mg/dL (0-150)
== END 2022-05-19 08:58 | disposition home or self-care (01) ==
PROVIDERS: PCP Family Medicine; Visit Provider Internal Medicine Cardiovascular Disease
DX: M79.10 Myalgia, unspecified site (principal); T48.6X5A Adverse effect of antiasthmatics, initial encounter; Z78.9 Other specified health status; E78.5 Hyperlipidemia, unspecified
CPT/HCPCS: 36415; 80061

== ENCOUNTER 2022-06-15 10:07 | Outpatient (CLI) | payer MEDICARE, SELFPAY ==
--- NOTE | ~2022-06-15 | XR_ITS ---
EXAMINATION: XR chest 2V DATE: 06/15/2022 10:48 INDICATION: Hypertension and dyspnea on exertion for preoperative evaluation prior to back surgery. TECHNIQUE: PA and lateral views of the chest were obtained. COMPARISON: Chest radiograph and CT dated 06/30/20 FINDINGS: The lungs are clear with no focal airspace opacities, pulmonary edema, pleural effusion or pneumothor ax. The cardiomediastinal silhouette is normal. Dual lead pacemaker seen with leads projecting over t he expected locations of the right atrium and right ventricle. Post cystectomy clips in right upper q uadrant. Mild thoracolumbar dextrocurvature with severe spondylosis. IMPRESSION: 1. No acute cardiopulmonary disease. Reviewed, dictated and finalized at location A.
--- NOTE | 2022-06-15 10:12 | ECG_ITS ---
Measurements Intervals [place] Rate: 89 P: 249 ND: 175 QRS: -78 QRSD: 226 T: 90 QT: 469 QTc: 572 Interpretive Statements ELECTRONIC ATRIAL PACEMAKER ELECTRONIC VENTRICULAR PACEMAKER BASELINE ARTIFACT- I, III, AVR, AVF NO FURTHER INTERPRETATION IS POSSIBLE ATYPICAL ECG COMPARED TO ECG 06/30/2020 12:41:46 NO SIGNIFICANT CHANGES Electronically Signed On 06-15-2022 11:30:00 CDT by Christopher Bennett D.O.
[2022-06-15 10:31] LABS: Basophils Absolute Auto 0.08 K/mm3 (0.00-0.10); Basophils Percent Auto 0.8 % (0.0-1.0); Eosinophils Absolute Auto 0.37 K/mm3 (0.02-0.50); Eosinophils Percent Auto 3.9 % (1.0-6.0); Hematocrit 43.2 % (35.0-42.0); Hemoglobin 14.2 g/dL (11.7-13.8); Immature Granulocyte Absolute 0.03 K/mm3 (0.00-0.00); Immature Granulocyte Percent A 0.3 % (0.0-0.0); Lymphocytes Absolute Auto 3.11 K/mm3 (1.10-4.50); Lymphocytes Percent Auto 32.7 % (18.0-42.0); Mean Corpuscular HGB Conc 32.9 g/dL (32.0-36.0); Mean Corpuscular Hemoglobin 29.8 pg (27.0-31.0); Mean Corpuscular Volume 90.6 fL (78.0-102.0); Mean Platelet Volume 11.4 fl (9.2-11.8); Monocytes Absolute Auto 0.89 K/mm3 (0.10-0.90); Monocytes Percent Auto 9.3 % (2.0-11.0); Platelet Count Result 253 K/mm3 (150-420); Red Blood Count 4.77 M/mm3 (4.20-5.40); Red Cell Distribution Width 11.9 % (11.6-14.4); White Blood Count 9.5 K/mm3 (4.8-10.8)
[2022-06-15 11:00] LABS: Alanine Aminotransferase 18 U/L (14-59); Albumin Level 3.7 g/dL (3.4-5.0); Alkaline Phosphatase 64 U/L (46-116); Anion Gap 9 mmol/L (8-16); Aspartate Amino Transferase 21 U/L (15-37); Bilirubin,Total 0.8 mg/dL (0.00-1.00); Blood Urea Nitrogen 15 mg/dL (7-18); Calcium 9.9 mg/dL (8.5-10.1); Carbon Dioxide 29 mmol/L (21-32); Chloride 99 mmol/L (98-108); Estimated Glomerular Filt Rate 59; Free T4 Free Thyroxine 1.19 ng/dL (0.76-1.46); Glucose 153 mg/dL (70-99); Osmolality Calculated 287 mOsm/kg (285-295); Potassium 3.7 mmol/L (3.5-5.1); Sodium 137 mmol/L (136-145); Thyroid Stimulating Hormone 0.94 uIU/mL (0.36-3.74); Total Protein 8.1 g/dL (6.4-8.2)
[2022-06-15 11:08] LABS: Appearance Urine Clear (Clear); Bilirubin Urine Negative (Negative); Color Urine Light Yellow (Yellow); Glucose Urine UA Negative (Negative); Ketones Urine Negative (Negative); Leukocyte Esterase Ur 3+ LEU/UL (Negative); Nitrate Urine Negative (Negative); Protein Urine Negative (Negative); Urobilinogen Urine 0.2 mg/dL (0.2-1.0); pH Urine 6.5 (5.0-8.0)
[2022-06-15 11:15] LABS: Add Urine Microscopic? YES; Bacteria Urine 2+ /hpf; Blood Urine Trace-Intact (Negative); RBC Urine None seen /hpf (0-2); Squamous Epithelial Cell Urine Moderate /hpf (Few)
[2022-06-15 13:04] LABS: Hemoglobin A1C 6.7 % (<5.7)
== END 2022-06-15 10:08 | disposition home or self-care (01) ==
LOC: CHSLAB 10:12
PROVIDERS: PCP Nurse Practitioner Family; Visit Provider Nurse Practitioner Family
DX: E11.9 Type 2 diabetes mellitus without complications (principal); Z01.818 Encounter for other preprocedural examination; R82.90 Unspecified abnormal findings in urine
CPT/HCPCS: 36415; 71046; 80053; 81001; 83036; 84439; 84443; 85025; 87086; 87088; 93005

== ENCOUNTER 2022-07-20 21:10 | Emergency (ER) | payer MEDICARE, SELFPAY ==
--- NOTE | ~2022-07-20 | CT_ITS ---
EXAMINATION: CT cervical spine wo con DATE: 07/20/2022 22:20 INDICATION: Neck pain TECHNIQUE: Computed tomography (CT) of the cervical spine was performed without intravenous contrast. The dose-length product (DLP) was 244.81 mGy-cm. Automated exposure control and iterative reconstruc tion technique were employed. COMPARISON: 07/10/2017 FINDINGS: There are changes of posterior fusion and laminectomy from C3 through T1. There is severe l oss of intervertebral disc space height at C3-4, C4-5, C5-6, and C6-7. The odontoid is intact. Small degenerative osteophytes project from the anterior endplates of multiple vertebral bodies. The verteb ral body heights are normal. No fracture is identified although sensitivity slightly limited by strea k artifact from the spinal fusion hardware. IMPRESSION: 1. Changes of posterior fusion and laminectomy from C3 through T1 and severe cervical spondylosis wit hout acute findings. Reviewed, dictated and finalized at location F. IMPRESSION: 1. Changes of posterior fusion and laminectomy from C3 through T1 and severe ce rvical spondylosis without acute findings.
[2022-07-20 21:30] VITALS: BP 139/88; PULSE 97; RESP 19; TEMP 37; O2SAT 97
--- NOTE | 2022-07-20 21:32 | PC.NURSE ---
Pt was very irritable with RN about getting an IV. Pt stated that she wants only a scan of her back to see if everything was ok from neck surgery.
--- NOTE | 2022-07-20 22:35 | ED.GENADULT ---
HPI - General Adult General Chief complaint: Extremity Problem,Nontraumatic Stated complaint: neck pain Time Seen by Provider: 07/20/22 21:15 Source: patient and family Mode of arrival: ambulatory Limitations: no limitations History of Present Illness HPI narrative: this is a 77-year-old female with a history of cervical neck fusion with recent surgery approximately 2 to 3 weeks ago doing well and has been taking medication as needed for pain discomfort, today while sitting she heard a pop in her neck and some discomfort after that and presented to the ER for further evaluation. Has good range of motion although it is tender she has some medication for pain at home as well as muscle relaxer given by her neurosurgeon. There is no numbness or tingling in her in her neck shoulders or any radiation into her arms or hands, there is no fever chills no chest pain no shortness of breath. Onset (ago): hour(s) Location: neck Radiation: non-radiation Severity: moderate Quality: aching Pain Consistency: constant and intermittent Relieving factors: medication Exacerbating factors: movement Associated symptoms: denies other symptoms Related Data Home Medications Medication Instructions Recorded Confirmed aspirin 81 mg tablet,delayed 81 mg PO DAILY 10/28/19 06/15/22 release (Adult Low Dose Aspirin) mometasone 50 mcg/actuation nasal 2 spray intranasal PRN 10/28/19 06/15/22 spray (Nasonex) loratadine 10 mg tablet (Claritin) 10 mg PO DAILY PRN Congestion 01/27/20 06/15/22 biotin 10,000 mcg PO PRN 06/24/20 06/15/22 garlic (Odor Free Garlic-X tablet) 1 tablet PO QAM 06/24/20 06/15/22 calcium carbonate 600 mg-vitamin 1 tablet PO DAILY 06/30/20 06/15/22 D3 20 mcg (800 unit) tablet (Caltrate with Vitamin D3) zinc sulfate 50 mg zinc (220 mg) 220 mg PO DAILY 07/19/20 06/15/22 tablet Allergies Allergy/AdvReac Type Severity Reaction Status Date / Time adhesive tape Allergy Intermediate Blister Verified 06/15/22 09:37 amoxicillin Allergy Intermediate struggle Verified 06/15/22 09:37 to breath and diarrhea codeine Allergy Intermediate Gastrointestinal Verified 06/15/22 09:37 Upset morphine Allergy Intermediate unknown Verified 06/15/22 09:37 Skfgyfx-VMM-GvC Reductase Allergy Intermediate unknown Verified 06/15/22 09:37 Inhibitor [Mxyppsv-Ziz-Yir Reductase Inhibitor] sulfamethoxazole [Bactrim] Allergy Intermediate unknown Verified 06/15/22 09:37 sulfamethizole Allergy Unknown unknown Verified 06/15/22 09:37 trimethoprim Allergy Unknown unknown Verified 06/15/22 09:37 terfenadine [From Seldane] Allergy Unknown Verified 06/15/22 09:37 tape Allergy Intermediate Blister Uncoded 06/15/22 09:37 Review of Systems Review of Systems: All systems reviewed & are unremarkable except as noted in HPI and below PMFSH Past Medical History Medical History CHF (congestive heart failure) DM2 (diabetes mellitus, type 2) Esophageal stricture Heart block AV third degree Hiatal hernia Hyperlipidemia Hypertension Kidney malignancy Overweight Pacemaker 2003 Peptic ulcer Thyroid nodule Urinary incontinence Surgical History Surgical History H/O prior ablation treatment uterine History of appendectomy History of cholecystectomy History of fusion of cervical spine Posterior cervical decompression and fusion C3-T1 on 06/22/2022 History of kidney removal Right Kidney Family History Family History Mother Diabetes mellitus Hypertension Father Hypertension Family history of cardiovascular disease Brother Family history of type 2 diabetes mellitus Hypertension Other Family history of arthritis Family history of gout Social History Social History Smoking status: Former smo
[2022-07-20 22:51] VITALS: BP 130/90; PULSE 78; RESP 18; TEMP 36.6; O2SAT 99
== END 2022-07-20 22:58 | disposition home or self-care (01) ==
PROVIDERS: Emergency Provider Emergency Medicine; PCP Family Medicine
DX: M54.2 Cervicalgia (principal); I50.9 Heart failure, unspecified; E11.9 Type 2 diabetes mellitus without complications; E78.5 Hyperlipidemia, unspecified; I10 Essential (primary) hypertension; Z87.891 Personal history of nicotine dependence
CPT/HCPCS: 72125; 99284

== ENCOUNTER 2022-07-23 11:22 | Emergency (ER) | payer MEDICARE, SELFPAY ==
--- NOTE | 2022-07-23 11:24 | ED.WOUNDLAC ---
HPI - Wound/Laceration General Chief Complaint: Wound/Laceration Stated Complaint: INICISION OPENED Time Seen by Provider: 07/23/22 11:24 Source: patient and RN notes reviewed Mode of arrival: ambulatory Limitations: no limitations History of Present Illness HPI narrative: Patient had cervical spine surgery with hardware on 06/22/2022. She said this morning she was bending forward and she felt something dripping down her neck. She had family look at it and her wound has opened up on her posterior neck over her hardware. There was some bleeding. And clots present inside the wound. No evidence of any infection. She otherwise has no other complaints. Patient was recently here and said that she was bending her neck and felt a pop and then what they thought was a muscle spasm into her shoulder. She had a repeat CT scan which showed all the hardware in place. Onset (ago): minute(s) (15) Location: neck Place: home Associated symptoms: none Related Data Home Medications Medication Instructions Recorded Confirmed aspirin 81 mg tablet,delayed 81 mg PO DAILY 10/28/19 06/15/22 release (Adult Low Dose Aspirin) mometasone 50 mcg/actuation nasal 2 spray intranasal PRN 10/28/19 06/15/22 spray (Nasonex) loratadine 10 mg tablet (Claritin) 10 mg PO DAILY PRN Congestion 01/27/20 06/15/22 biotin 10,000 mcg PO PRN 06/24/20 06/15/22 garlic (Odor Free Garlic-X tablet) 1 tablet PO QAM 06/24/20 06/15/22 calcium carbonate 600 mg-vitamin 1 tablet PO DAILY 06/30/20 06/15/22 D3 20 mcg (800 unit) tablet (Caltrate with Vitamin D3) zinc sulfate 50 mg zinc (220 mg) 220 mg PO DAILY 07/19/20 06/15/22 tablet Allergies Allergy/AdvReac Type Severity Reaction Status Date / Time adhesive tape Allergy Intermediate Blister Verified 07/23/22 11:47 amoxicillin Allergy Intermediate struggle Verified 07/23/22 11:47 to breath and diarrhea codeine Allergy Intermediate Gastrointestinal Verified 07/23/22 11:47 Upset morphine Allergy Intermediate unknown Verified 07/23/22 11:47 Uzabkxi-WAN-StZ Reductase Allergy Intermediate unknown Verified 07/23/22 11:47 Inhibitor [Niyyqho-Acs-Ifc Reductase Inhibitor] sulfamethoxazole [Bactrim] Allergy Intermediate unknown Verified 07/23/22 11:47 sulfamethizole Allergy Unknown unknown Verified 07/23/22 11:47 trimethoprim Allergy Unknown unknown Verified 07/23/22 11:47 terfenadine [From Seldane] Allergy Unknown Verified 07/23/22 11:47 tape Allergy Intermediate Blister Uncoded 07/23/22 11:47 Review of Systems Review of Systems: All systems reviewed & are unremarkable except as noted in HPI and below PMFSH Past Medical History Medical History CHF (congestive heart failure) DM2 (diabetes mellitus, type 2) Esophageal stricture Heart block AV third degree Hiatal hernia Hyperlipidemia Hypertension Kidney malignancy Overweight Pacemaker 2003 Peptic ulcer Thyroid nodule Urinary incontinence Surgical History Surgical History H/O prior ablation treatment uterine History of appendectomy History of cholecystectomy History of fusion of cervical spine Posterior cervical decompression and fusion C3-T1 on 06/22/2022 History of kidney removal Right Kidney Family History Family History Mother Diabetes mellitus Hypertension Father Hypertension Family history of cardiovascular disease Brother Family history of type 2 diabetes mellitus Hypertension Other Family history of arthritis Family history of gout Social History Social History Smoking status: Former smoker Tobacco type: cigarettes Smoking end date: 10/08/00 Alcohol intake: never Substance use: never Substance use type: does not use Gender identity (if verbalized by the patient): Fe
[2022-07-23 11:38] VITALS: BP 100/64; PULSE 85; RESP 16; TEMP 36.3; O2SAT 97
--- NOTE | 2022-07-23 12:08 | PC.NURSE ---
surgeon at [facility] would like patient to have Ancef prior to transfer, patient is refusing because she doesn't want to be stuck twice for an iv. report given to Viviane dang rn at [facility]
[2022-07-23 12:10] VITALS: BP 100/64; PULSE 85; RESP 16; TEMP 36.3; O2SAT 97
== END 2022-07-23 12:11 | disposition short-term general hospital (02) ==
PROVIDERS: Emergency Provider Emergency Medicine; PCP Family Medicine
DX: S11.90XA Unspecified open wound of unspecified part of neck, initial encounter (principal); Z98.890 Other specified postprocedural states; I50.9 Heart failure, unspecified; E11.9 Type 2 diabetes mellitus without complications; E78.5 Hyperlipidemia, unspecified; I10 Essential (primary) hypertension; Z87.891 Personal history of nicotine dependence
CPT/HCPCS: 99282

== ENCOUNTER 2022-09-20 14:56 | Outpatient (RCR) | payer MEDICARE, SELFPAY ==
--- NOTE | 2022-09-20 15:59 | PTOPEVAL1 ---
Assessment and note entered by JT File, PT Evaluation Information Assessment Status Evaluation Diagnosis s/p cervical ruthie/screw placement Onset 06/22/22 Subjective Information patient reports she had surgery on 06/22/22. she reports then on 07/24/22 she had the stiches in her neck break open and she was bleeding. she reports she went back into surgery to clean out any bacteria and she was closed back up. she reports she was fearful to move after this 2nd surgery. she reports she is now having trouble holding her head up, especially while walking. she reports she also has pain and tightness in the neck in the cold weather. she reports she is on a 10lb lifting restriction. xi has a history of multiple L ulnar surgeries and R carpal tunnel surgery. Reported Pain Level Pain Score 0: Self Report Assessment PT Clinical Summary mrs. victoria presents to skilled PT services to evaluation and treatment s/p cervical ruthie and screw stabilization. she presents this date with decreased rom, weakness, core instability, and unsteady balance/gait. she is complicated by prior nerve injuries and surgeries to the L elbow and R wrist. she would do well to attend and participate in skilled PT services to improve her objective/functional deficits and progress towards a return to her prior level functional activity performance/quality of life. Plan of Care Interventions Gait Training,Hot Pack/Cold Pack,Manual Therapy, Neuro Re-education,Patient/Caregiver Educati, Therapeutic Activities,Therapeutic Exercise PT Services Indicated Yes Treatment Frequency and 3x weekly for 12 visits Duration These treatments will address the objective and functional deficits as defined above. The patient will be advanced safely and appropriately in order for the patient to progress towards his/her prior level of function. Additional exercises will be introduced and as well as a comprehensive home exercise program upon discharge, if needed, ?to ensure carryover of functional gains achieved in the clinic. This treatment plan has been reviewed and agreement upon by the patient.
--- NOTE | 2022-10-26 16:09 | PTOPPROG ---
Assessment and note entered by Chen Durham, PT Evaluation Information Assessment Status Evaluation Diagnosis s/p cervical ruthie/screw placement Onset 06/22/22 Subjective Information Lanette reports on 10/22/22, she was reaching into her vehicle to hand her a bottle of water and she lost her balance and fell back hitting her head on the vehicle door. She states she and her heard a loud pop in her neck and she immediately had a headache. The headache subsided within 30 minutes but she has had increased neck stiffness since then. She reports she is having occasional achiness in the neck but her chief complaint is tightness. She is limiting her lifting to 10 lbs or less and she can manage that without difficulty. She is driving but feels tired after driving too much. Assessment PT Clinical Summary Lanette Irvin has completed 12 skilled PT visits since following a cervical stabilization surgery performed on 06/22/22. She has had a worsening of symptoms since bumping her head on the car door on 10/22/22. She is reporting increased stiffness then with occasional achiness on the sides of her neck. She objectively demonstrates slightly improved cervical and shoulder AROM as well as mild strength improvements. She continues to demonstrate tension and tenderness in cervical musculature, decreased cervical and shoulder ROM, and decreased upper extremity and cotton cleaner strength. She will continue to benefit from skilled PT to address tension with manual therapy and to progress UE strengthening. Plan of Care Interventions Manual Therapy,Patient/Caregiver Educati, Therapeutic Activities,Therapeutic Exercise PT Services Indicated Yes Treatment Frequency and 2 times a week for 8 visits Duration These treatments will address the objective and functional deficits as defined above. The patient will be advanced safely and appropriately in order for the patient to progress towards his/her prior level of function. Additional exercises will be introduced and as well as a comprehensive home exercise program upon discharge, if needed, ?to ensure carryover of functional gains achieved in the clinic. This treatment plan has been reviewed and agreement upon by the patient.
--- NOTE | 2022-10-31 15:48 | OTOPEVAL1 ---
Assessment and note entered by Carole Barth OT Evaluation Information Assessment Status Evaluation Diagnosis L hand weakness Onset 1999 Subjective Information The patient reports pain in L hand at palm when stretching fingers out but no pain in resting position. The patient reports being unable to grasp a jar because she cannot open her hand fully and drops things out of her L hand often. Reported Pain Level Pain Score 0: Self Report Pain Score 0: Self Report Assessment OT Clinical Summary The patient is a 77 year old female who was referred to outpatient OT due to L hand weakness and pain. 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 The patient requires skilled OT to address tight muscles of L volar hand, ROM, and strength deficits in order to regain function of hand. Plan of Care Interventions Therapeutic Exercise,Manual Therapy,Neuro Re- education,Therapeutic Activities,Hot Pack/Cold Pack,Electrical Stimulation,Self-Care/Home Management,Check Out for Orthotic/Pr,Ultrasound OT Services Indicated Yes Treatment Frequency and 2x/week for 6 weeks. Duration These treatments will address the objective and functional deficits as defined above. The patient will be advanced safely and appropriately in order for the patient to progress towards his/her prior level of function. Additional exercises will be introduced and as well as a comprehensive home exercise program upon discharge, if needed, ?to ensure carryover of functional gains achieved in the clinic. This treatment plan has been reviewed and agreement upon by the patient.
--- NOTE | 2022-11-29 16:16 | OTOPDC ---
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 The patient demonstrates signficiant progress in pinch strength due to exercises performed and taught during therapy sessions. The patient is discharged this date due to no longer requiring the skills of a therapist as the patient has not demonstrated progress and will continue to have weakness presenting as nerve damage. The patient was educated on UE HEP to continue to perform stretching exercises, splint schedule and UE exercises in order to maintain current level of ROM. Plan of Care OT Services Indicated No
--- NOTE | 2022-11-29 16:38 | PTOPDC ---
Assessment and note entered by JT File, PT Evaluation Information Assessment Status Discharge Diagnosis s/p cervical ruthie/screw placement Onset 06/22/22 Subjective Information patient reports she feels Good this date. she reports she is ready to be done with therapy. she reports the only continued complaints she has are with her L hand and middle and ring finger not extending. Reported Pain Level Pain Score 0: Self Report Pain Score 0: Self Report Assessment PT Clinical Summary mrs. victoria presents to skilled PT for her 20th skilled PT visit this date. she has made progress towards all goals, but continues to be limited in shoulder strength, cervical rom, and functional hand position of the L UE. she no longer has pain in the neck, and is compliant with her HEP. she will DC skilled PT and continue with HEP independent at home. Plan of Care Treatment Frequency and DC to independent HEP Duration
== END 2022-11-29 16:22 | disposition home or self-care (01) ==
LOC: CHSPT 14:56
DX: M54.12 Radiculopathy, cervical region (principal)
CPT/HCPCS: 97035; 97110; 97140; 97161; 97165; 97530; 97535

== ENCOUNTER 2023-02-14 11:16 | Outpatient (CLI) | payer MEDICARE, SELFPAY ==
[2023-02-14 11:30] LABS: Basophils Absolute Auto 0.08 K/mm3 (0.00-0.10); Basophils Percent Auto 0.7 % (0.0-1.0); Eosinophils Percent Auto 1.8 % (1.0-6.0); Hematocrit 43.6 % (35.0-42.0); Hemoglobin 14.4 g/dL (11.7-13.8); Immature Granulocyte Absolute 0.05 K/mm3 (0.00-0.00); Immature Granulocyte Percent A 0.5 % (0.0-0.0); Lymphocytes Absolute Auto 3.43 K/mm3 (1.10-4.50); Lymphocytes Percent Auto 31.4 % (18.0-42.0); Mean Corpuscular Hemoglobin 29.2 pg (27.0-31.0); Mean Corpuscular Volume 88.4 fL (78.0-102.0); Mean Platelet Volume 11.1 fl (9.2-11.8); Monocytes Absolute Auto 0.88 K/mm3 (0.10-0.90); Monocytes Percent Auto 8.1 % (2.0-11.0); Neutrophils Absolute Auto 6.3 K/mm3 (1.7-7.2); Neutrophils Percent Auto 57.5 % (50.0-70.0); Platelet Count Result 256 K/mm3 (150-420); Red Blood Count 4.93 M/mm3 (4.20-5.40); Red Cell Distribution Width 12.7 % (11.6-14.4); White Blood Count 10.9 K/mm3 (4.8-10.8)
[2023-02-14 11:42] LABS: Hemoglobin A1C 6.6 % (<5.7)
[2023-02-14 11:48] LABS: Appearance Urine Clear (Clear); Bilirubin Urine Negative (Negative); Blood Urine Trace-Intact (Negative); Color Urine Light Yellow (Yellow); Glucose Urine UA Negative (Negative); Ketones Urine Negative (Negative); Leukocyte Esterase Ur 1+ LEU/UL (Negative); Nitrate Urine Negative (Negative); Protein Urine Negative (Negative); Specific Grav Ur 1.025 (1.010-1.020); Urobilinogen Urine 0.2 mg/dL (0.2-1.0)
[2023-02-14 11:58] LABS: Add Urine Microscopic? YES; Bacteria Urine Trace /hpf; RBC Urine 0-2 /hpf (0-2); Squamous Epithelial Cell Urine Few /hpf (Few)
[2023-02-14 12:03] LABS: Alanine Aminotransferase 16 U/L (14-59); Albumin Level 3.9 g/dL (3.4-5.0); Alkaline Phosphatase 54 U/L (46-116); Anion Gap 7 mmol/L (8-16); Aspartate Amino Transferase 17 U/L (15-37); Bilirubin,Total 1.3 mg/dL (0.00-1.00); Blood Urea Nitrogen 12 mg/dL (7-18); Calcium 10.5 mg/dL (8.5-10.1); Carbon Dioxide 33 mmol/L (21-32); Chloride 102 mmol/L (98-108); Estimated Glomerular Filt Rate > 60; Glucose 126 mg/dL (70-99); Osmolality Calculated 295 mOsm/kg (285-295); Potassium 3.6 mmol/L (3.5-5.1); Sodium 142 mmol/L (136-145); Total Protein 7.7 g/dL (6.4-8.2)
== END 2023-02-14 11:17 | disposition home or self-care (01) ==
LOC: CHSLAB 11:18
PROVIDERS: PCP Nurse Practitioner Family; Visit Provider Nurse Practitioner Family
DX: Z01.818 Encounter for other preprocedural examination (principal); E11.9 Type 2 diabetes mellitus without complications
CPT/HCPCS: 36415; 80053; 81001; 83036; 85025; 87081; 87086

== ENCOUNTER 2023-02-24 13:15 | Emergency (ER) | payer MEDICARE, SELFPAY ==
--- NOTE | ~2023-02-24 | XR_ITS ---
EXAMINATION: XR hip RT 2V w AP pelvis INDICATION: Right hip pain after fall TECHNIQUE: AP view the pelvis and two views of the right hip are obtained. COMPARISON: 12/15/2009 FINDINGS: Bone alignment is normal. There is no fracture. There is mild osteoarthritis of the hips. P hleboliths are noted in the pelvis. There is moderate lower lumbar spondylosis. Osteitis pubis is not ed. IMPRESSION: 1. No acute osseous abnormality. Reviewed, dictated and finalized at location A.
--- NOTE | ~2023-02-24 | XR_ITS ---
EXAMINATION: XR lumbar spine 2-3V DATE: 02/24/2023 13:45 INDICATION: Pain after fall TECHNIQUE: Anteroposterior and lateral views of the lumbar spine, and cone-down lateral view of the l umbosacral junction were obtained. COMPARISON: 10/06/2015 FINDINGS: Bone alignment is normal. There is no fracture. There is severe loss of intervertebral disc space height at L5-S1. Small degenerative osteophytes project from the anterior endplates of multipl e vertebral bodies. Calcified atherosclerosis is noted. Surgical clips in the right upper quadrant ar e likely from prior cholecystectomy. IMPRESSION: 1. Severe lumbar spondylosis at L5-S1 without acute findings. Reviewed, dictated and finalized at location A.
[2023-02-24 13:11] VITALS: BP 124/88; PULSE 77; RESP 16; TEMP 36.9; O2SAT 97
--- NOTE | 2023-02-24 14:51 | ED.FALL ---
HPI - Fall General Chief Complaint: Fall Stated Complaint: GLF-right hip pain Time Seen by Provider: 02/24/23 13:17 Source: patient and EMS Mode of arrival: EMS Limitations: no limitations History of Present Illness HPI Narrative: Patient is 77 years old white female was dusting, tripped on something on the floor and fell on the right hip area. Complaining of right hip and right pelvic pain. Worse with movement and standing. She denies other injuries. Came by ambulance from home. Related Data Home Medications Medication Instructions Recorded Confirmed aspirin 81 mg tablet,delayed 81 mg PO DAILY 10/28/19 02/14/23 release (Adult Low Dose Aspirin) mometasone 50 mcg/actuation nasal 2 spray intranasal PRN 10/28/19 02/14/23 spray (Nasonex) loratadine 10 mg tablet (Claritin) 10 mg PO DAILY PRN Congestion 01/27/20 02/14/23 biotin 10,000 mcg PO PRN 06/24/20 02/14/23 garlic (Odor Free Garlic-X tablet) 1 tablet PO QAM 06/24/20 02/14/23 calcium carbonate 600 mg-vitamin 1 tablet PO DAILY 06/30/20 02/14/23 D3 20 mcg (800 unit) tablet (Caltrate with Vitamin D3) zinc sulfate 50 mg zinc (220 mg) 220 mg PO DAILY 07/19/20 02/14/23 tablet metaxalone 800 mg tablet 800 mg PO TID PRN 07/26/22 02/14/23 ezetimibe 10 mg tablet 10 mg PO DAILY 02/14/23 02/14/23 Allergies Allergy/AdvReac Type Severity Reaction Status Date / Time adhesive tape Allergy Intermediate Blister Verified 02/24/23 13:22 amoxicillin Allergy Intermediate struggle Verified 02/24/23 13:22 to breath and diarrhea codeine Allergy Intermediate Gastrointestinal Verified 02/24/23 13:22 Upset morphine Allergy Intermediate unknown Verified 02/24/23 13:22 Jenvhmt-MHO-WvR Reductase Allergy Intermediate unknown Verified 02/24/23 13:22 Inhibitor [Lvkqzip-Toy-Ccz Reductase Inhibitor] sulfamethoxazole [Bactrim] Allergy Intermediate unknown Verified 02/24/23 13:22 sulfamethizole Allergy Unknown unknown Verified 02/24/23 13:22 trimethoprim Allergy Unknown unknown Verified 02/24/23 13:22 terfenadine [From Seldane] Allergy Unknown Verified 02/24/23 13:22 tape Allergy Intermediate Blister Uncoded 02/14/23 10:58 Review of Systems Review of Systems: All systems reviewed & are unremarkable except as noted in HPI and below PMFSH Past Medical History Medical History CHF (congestive heart failure) DM2 (diabetes mellitus, type 2) Esophageal stricture Heart block AV third degree Hiatal hernia Hyperlipidemia Hypertension Kidney malignancy Overweight Pacemaker 2003 Peptic ulcer Thyroid nodule Urinary incontinence Surgical History Surgical History H/O prior ablation treatment uterine History of appendectomy History of cholecystectomy History of fusion of cervical spine Posterior cervical decompression and fusion C3-T1 on 06/22/2022 History of kidney removal Right Kidney Family History Family History Mother Diabetes mellitus Hypertension Father Hypertension Family history of cardiovascular disease Brother Family history of type 2 diabetes mellitus Hypertension Other Family history of arthritis Family history of gout Social History Social History Smoking status: Former smoker Tobacco type: cigarettes Smoking end date: 10/08/00 Alcohol intake: never Substance use: never Substance use type: does not use Living arrangements: with family Gender identity (if verbalized by the patient): Female Sexual Orientation (if Verbalized by the Patient): Straight or Heterosexual Spiritual care concerns: No Exam Narrative: General appearance: Well-developed, well-nourished Skin: Normal color Head: Normocephalic, nontraumatic Eyes: Clear conjunctiva ENT: Oropharynx normal, ears norm
--- NOTE | 2023-02-24 15:20 | PC.NURSE ---
attempted to ambulate pt from bed to bathroom, pt up for d/c. Difficulty getting set up on bedside then when stood up pt reported she was unable to ambulate due to the pain in her right groin and low back
[2023-02-24] MEDS: IBUPROFEN 600 MG TABLET PO (15:48)
[2023-02-24] MEDS: ONDANSETRON HCL ODT 4 MG TABLET PO (15:48)
[2023-02-24] MEDS: ACETAMINOPHEN 500 MG TABLET 1000 MG PO (15:48)
--- NOTE | 2023-02-24 15:52 | PC.NURSE ---
went to give morphine to pt and she refused reporting it causes CP.
[2023-02-24 16:10] VITALS: BP 124/84; PULSE 76; RESP 20; O2SAT 97
== END 2023-02-24 16:11 | disposition home or self-care (01) ==
PROVIDERS: Emergency Provider Emergency Medicine; PCP Nurse Practitioner Family
DX: S70.01XA Contusion of right hip, initial encounter (principal); I50.9 Heart failure, unspecified; I11.0 Hypertensive heart disease with heart failure; E11.9 Type 2 diabetes mellitus without complications; E78.5 Hyperlipidemia, unspecified; Z95.0 Presence of cardiac pacemaker; Z85.528 Personal history of other malignant neoplasm of kidney; Z87.11 Personal history of peptic ulcer disease; Z87.891 Personal history of nicotine dependence; Z90.49 Acquired absence of other specified parts of digestive tract; Z90.5 Acquired absence of kidney; Z98.1 Arthrodesis status; Z79.84 Long term (current) use of oral hypoglycemic drugs; Z79.82 Long term (current) use of aspirin; M47.816 Spondylosis without myelopathy or radiculopathy, lumbar region; W18.09XA Striking against other object with subsequent fall, initial encounter
CPT/HCPCS: 72100; 73502; 99284; A9270

== ENCOUNTER 2023-05-03 11:10 | Outpatient (CLI) | payer MEDICARE, SELFPAY ==
--- NOTE | 2023-05-03 11:28 | ECG_ITS ---
Measurements Intervals [place] Rate: 86 P: 133 CT: 176 QRS: -81 QRSD: 214 T: 79 QT: 478 QTc: 575 Interpretive Statements ELECTRONIC ATRIAL PACEMAKER ELECTRONIC VENTRICULAR PACEMAKER BASELINE ARTIFACT- I, II, III, AVR, AVL, AVF, V1, V5 NO FURTHER INTERPRETATION IS POSSIBLE ATYPICAL ECG COMPARED TO ECG 06/15/2022 10:41:44 NO SIGNIFICANT CHANGES Electronically Signed On 05-03-2023 12:20:03 CDT by Christopher Bennett D.O.
[2023-05-03 11:33] LABS: Basophils Absolute Auto 0.12 K/mm3 (0.00-0.10); Basophils Percent Auto 1.1 % (0.0-1.0); Eosinophils Absolute Auto 0.34 K/mm3 (0.02-0.50); Hemoglobin 13.4 g/dL (11.7-13.8); Immature Granulocyte Absolute 0.03 K/mm3 (0.00-0.00); Immature Granulocyte Percent A 0.3 % (0.0-0.0); Lymphocytes Absolute Auto 3.28 K/mm3 (1.10-4.50); Mean Corpuscular HGB Conc 33.5 g/dL (32.0-36.0); Mean Corpuscular Volume 89.5 fL (78.0-102.0); Mean Platelet Volume 11.5 fl (9.2-11.8); Monocytes Absolute Auto 0.89 K/mm3 (0.10-0.90); Monocytes Percent Auto 7.9 % (2.0-11.0); Neutrophils Absolute Auto 6.7 K/mm3 (1.7-7.2); Neutrophils Percent Auto 58.7 % (50.0-70.0); Platelet Count Result 283 K/mm3 (150-420); Red Blood Count 4.47 M/mm3 (4.20-5.40); Red Cell Distribution Width 12.8 % (11.6-14.4); White Blood Count 11.3 K/mm3 (4.8-10.8)
[2023-05-03 11:42] LABS: Hemoglobin A1C 6.4 % (<5.7)
[2023-05-03 12:35] LABS: Alanine Aminotransferase 16 U/L (14-59); Albumin Level 3.8 g/dL (3.4-5.0); Alkaline Phosphatase 80 U/L (46-116); Anion Gap 8 mmol/L (8-16); Aspartate Amino Transferase 14 U/L (15-37); Blood Urea Nitrogen 12 mg/dL (7-18); Calcium 9.9 mg/dL (8.5-10.1); Carbon Dioxide 31 mmol/L (21-32); Chloride 101 mmol/L (98-108); Estimated Glomerular Filt Rate 60; Glucose 139 mg/dL (70-99); Osmolality Calculated 291 mOsm/kg (285-295); Potassium 3.6 mmol/L (3.5-5.1); Sodium 140 mmol/L (136-145); Total Protein 7.8 g/dL (6.4-8.2)
== END 2023-05-03 11:11 | disposition home or self-care (01) ==
PROVIDERS: PCP Family Medicine; Visit Provider Family Medicine
DX: Z01.818 Encounter for other preprocedural examination (principal); E11.9 Type 2 diabetes mellitus without complications; R94.31 Abnormal electrocardiogram [ECG] [EKG]; Z95.0 Presence of cardiac pacemaker
CPT/HCPCS: 36415; 80053; 83036; 85025; 93005

== ENCOUNTER 2023-06-27 10:49 | Outpatient (CLI) | payer MEDICARE, SELFPAY ==
[2023-06-27 11:05] LABS: Appearance Urine Clear (Clear); Bilirubin Urine Negative (Negative); Blood Urine 1+ (Negative); Color Urine Yellow (Yellow); Glucose Urine UA Negative (Negative); Ketones Urine Negative (Negative); Leukocyte Esterase Ur 2+ LEU/UL (Negative); Nitrate Urine Positive (Negative); Protein Urine Negative (Negative); Urobilinogen Urine 0.2 mg/dL (0.2-1.0); pH Urine 5.5 (5.0-8.0)
[2023-06-27 11:19] LABS: Add Urine Microscopic? YES; RBC Urine 0-2 /hpf (0-2); Squamous Epithelial Cell Urine Few /hpf (Few)
[2023-06-27 11:20] LABS: Bacteria Urine 1+ /hpf
== END 2023-06-27 10:50 | disposition home or self-care (01) ==
LOC: CHSLAB 10:51
PROVIDERS: PCP Family Medicine; Visit Provider Nurse Practitioner Family
DX: R35.0 Frequency of micturition (principal); R82.90 Unspecified abnormal findings in urine
CPT/HCPCS: 81001; 87077; 87086; 87088; 87186

== ENCOUNTER 2023-07-31 13:35 | Outpatient (CLI) | payer MEDICARE, SELFPAY ==
[2023-07-31 13:49] LABS: Basophils Absolute Auto 0.08 K/mm3 (0.00-0.10); Basophils Percent Auto 0.8 % (0.0-1.0); Eosinophils Percent Auto 2.9 % (1.0-6.0); Hemoglobin 12.4 g/dL (11.7-13.8); Immature Granulocyte Absolute 0.04 K/mm3 (0.00-0.00); Immature Granulocyte Percent A 0.4 % (0.0-0.0); Lymphocytes Percent Auto 33.4 % (18.0-42.0); Mean Corpuscular HGB Conc 32.6 g/dL (32.0-36.0); Mean Corpuscular Hemoglobin 29.4 pg (27.0-31.0); Mean Platelet Volume 11.4 fl (9.2-11.8); Monocytes Absolute Auto 0.92 K/mm3 (0.10-0.90); Neutrophils Absolute Auto 5.4 K/mm3 (1.7-7.2); Neutrophils Percent Auto 53.5 % (50.0-70.0); Platelet Count Result 225 K/mm3 (150-420); Red Blood Count 4.22 M/mm3 (4.20-5.40); Red Cell Distribution Width 13.2 % (11.6-14.4); White Blood Count 10.2 K/mm3 (4.8-10.8)
[2023-07-31 14:49] LABS: Albumin Level 3.6 g/dL (3.4-5.0); Alkaline Phosphatase 66 U/L (46-116); Anion Gap 11 mmol/L (8-16); Aspartate Amino Transferase 11 U/L (15-37); Bilirubin,Total 0.4 mg/dL (0.00-1.00); Blood Urea Nitrogen 11 mg/dL (7-18); Calcium 9.9 mg/dL (8.5-10.1); Carbon Dioxide 31 mmol/L (21-32); Chloride 101 mmol/L (98-108); Estimated Glomerular Filt Rate 55; Glucose 146 mg/dL (70-99); NT Pro B Type Natriuretic Pept 930 pg/mL (0-450); Osmolality Calculated 298 mOsm/kg (285-295); Potassium 3.5 mmol/L (3.5-5.1); Sodium 143 mmol/L (136-145); Total Protein 7.2 g/dL (6.4-8.2)
[2023-07-31 15:10] LABS: Alanine Aminotransferase 14 U/L (14-59)
== END 2023-07-31 13:36 | disposition home or self-care (01) ==
LOC: CHSLAB 13:38
PROVIDERS: PCP Nurse Practitioner Family; Visit Provider Internal Medicine Cardiovascular Disease
DX: I42.9 Cardiomyopathy, unspecified (principal); I50.9 Heart failure, unspecified
CPT/HCPCS: 36415; 80053; 83880; 85025

== ENCOUNTER 2023-08-29 09:38 | Outpatient (CLI) | payer MEDICARE, SELFPAY ==
[2023-08-29 10:27] LABS: Anion Gap 5 mmol/L (8-16); Blood Urea Nitrogen 15 mg/dL (7-18); Calcium 9.4 mg/dL (8.5-10.1); Carbon Dioxide 33 mmol/L (21-32); Chloride 106 mmol/L (98-108); Estimated Glomerular Filt Rate 49; Glucose 146 mg/dL (70-99); Osmolality Calculated 301 mOsm/kg (285-295); Potassium 4.1 mmol/L (3.5-5.1); Sodium 144 mmol/L (136-145)
== END 2023-08-29 09:39 | disposition home or self-care (01) ==
LOC: CHSLAB 09:40
PROVIDERS: PCP Family Medicine; Visit Provider Nurse Practitioner Adult Health
DX: I42.9 Cardiomyopathy, unspecified (principal)
CPT/HCPCS: 36415; 80048

== ENCOUNTER 2023-09-18 11:03 | Outpatient (CLI) | payer MEDICARE, SELFPAY ==
--- NOTE | ~2023-09-18 | XR_ITS ---
Clinical Indication: Shortness of breath PA and lateral views of the chest: Comparison: 06/15/2022 Findings: The lungs are clear, without evidence of focal consolidation or pleural effusion. Cardiome diastinal silhouette is stable, with pacemaker device. Bones and soft tissues are unremarkable. Impression: Clear lungs. Reviewed, dictated and finalized at location . IOVASCULAR SONOGRAPHER Impression: Clear lungs.
== END 2023-09-18 11:04 | disposition home or self-care (01) ==
PROVIDERS: PCP Nurse Practitioner Family; Visit Provider Nurse Practitioner Family
DX: R09.89 Other specified symptoms and signs involving the circulatory and respiratory systems (principal)
CPT/HCPCS: 71046

== ENCOUNTER 2023-09-28 09:22 | Outpatient (CLI) | payer MEDICARE, SELFPAY ==
--- NOTE | ~2023-09-28 | CT_ITS ---
CT Scan of the Chest without Contrast: Clinical Indication: Dyspnea on exertion Technique: Contiguous sections were acquired throughout the chest without intravenous contrast. Dose reduction technique was used on this scan by utilizing automated exposure control and iterative recon struction technique. The dose-length product (DLP) was 125.37 mGy-cm. COMPARISON: 06/30/2020 Findings: Stable hypodense right thyroid lobe nodule noted. There is no evidence of any significant mediastinal, hilar or axillary lymphadenopathy. There are ath erosclerotic calcifications of the aorta and coronary arteries. Minimal pericardial fluid present. There are fkhas-ed-gtfmibqz bilateral pleural effusions, with minimal bibasilar atelectatic change. T here is mild diffuse subpleural reticulation and minimal peripheral residual thickening. 3 mm periphe ral right upper lobe pulmonary nodule noted (axial image 29). Images through the upper abdomen reveal no abnormalities. Impression: Small to moderate bilateral pleural effusions. Mild peripheral chronic interstitial disease. 3 mm right upper lobe pulmonary nodule. According to Fleischner Society criteria, for a low-risk maia ent, no further follow-up required. For a high-risk patient, consider 12 follow-up CT. Minimal pericardial fluid. Reviewed, dictated and finalized at [facility]. 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 Mild peripheral chronic interstitial disease. 3 mm right upper lobe pulmonary nodule. According to Fleischner Society criteri a, for a low-risk patient, no further follow-up required. For a high-risk patie nt, consider 12 follow-up CT. Minimal pericardial fluid.
== END 2023-09-28 09:23 | disposition home or self-care (01) ==
PROVIDERS: PCP Family Medicine; Visit Provider Nurse Practitioner Adult Health
DX: R06.09 Other forms of dyspnea (principal); J90 Pleural effusion, not elsewhere classified; J84.9 Interstitial pulmonary disease, unspecified; R91.1 Solitary pulmonary nodule
CPT/HCPCS: 71250

== ENCOUNTER 2023-09-28 13:51 | Emergency (ER) | payer MEDICARE, SELFPAY ==
[2023-09-28] VITALS (23 sets, daily range): BP systolic 135–145; BP diastolic 66–88; PULSE 60–99; RESP 15–33; TEMP 36.6; O2SAT 90–98
--- NOTE | 2023-09-28 13:58 | ED.SOB ---
HPI - SOB/Dyspnea General Chief Complaint: Shortness of Breath/Dyspnea Stated Complaint: SOB Time Seen by Provider: 09/28/23 13:57 Source: patient Mode of arrival: ambulatory Limitations: no limitations Related Data Home Medications Medication Instructions Recorded Confirmed aspirin 81 mg tablet,delayed 81 mg PO DAILY 10/28/19 09/18/23 release (Adult Low Dose Aspirin) mometasone 50 mcg/actuation nasal 2 spray intranasal PRN 10/28/19 09/18/23 spray (Nasonex) loratadine 10 mg tablet (Claritin) 10 mg PO DAILY PRN Congestion 01/27/20 09/18/23 biotin 10,000 mcg PO PRN 06/24/20 09/18/23 garlic (Odor Free Garlic-X tablet) 1 tablet PO QAM 06/24/20 09/18/23 calcium carbonate 600 mg-vitamin 1 tablet PO DAILY 06/30/20 09/18/23 D3 20 mcg (800 unit) tablet (Caltrate with Vitamin D3) zinc sulfate 50 mg zinc (220 mg) 220 mg PO DAILY 07/19/20 09/18/23 tablet metaxalone 800 mg tablet 800 mg PO TID PRN 07/26/22 09/18/23 sacubitril 24 mg-valsartan 26 mg 1 tablet PO BID 09/06/23 09/18/23 tablet (Entresto) Allergies Allergy/AdvReac Type Severity Reaction Status Date / Time adhesive tape Allergy Intermediate Blister Verified 09/28/23 13:58 amoxicillin Allergy Intermediate struggle Verified 09/28/23 13:58 to breath and diarrhea codeine Allergy Intermediate Gastrointestinal Verified 09/28/23 13:58 Upset morphine Allergy Intermediate unknown Verified 09/28/23 13:58 Fyfjefu-DGB-NlF Reductase Allergy Intermediate unknown Verified 09/28/23 13:58 Inhibitor [Anfaivq-Qhr-Bvl Reductase Inhibitor] sulfamethoxazole [Bactrim] Allergy Intermediate unknown Verified 09/28/23 13:58 sulfamethizole Allergy Unknown unknown Verified 09/28/23 13:58 trimethoprim Allergy Unknown unknown Verified 09/28/23 13:58 terfenadine [From Seldane] Allergy Unknown Verified 09/28/23 13:58 tape Allergy Intermediate Blister Uncoded 09/28/23 13:58 Review of Systems Review of Systems: All systems reviewed & are unremarkable except as noted in HPI and below Constitutional: Constitutional: Reports no additional constitutional complaints Eyes: Eyes: Reports no additional eye complaints ENT: Reports system reviewed and no additional complaints, except as documented Cardiovascular: Cardiovascular: Reports no additional cardiovascular complaints Respiratory: Respiratory: Reports no additional respiratory complaints Gastrointestinal: Gastrointestinal: Reports no additional gastrointestinal complaints Genitourinary: Genitourinary: Reports no additional female genitourinary complaints Musculoskeletal: Musculoskeletal: Reports no additional musculoskeletal complaints Integumentary/Breasts: Skin/Breast: Reports system reviewed and no additional complaints, except as docu Neurologic: Reports system reviewed and no additional complaints, except as documented Psychiatric: Psychiatric: Reports no additional psychiatric complaints Endocrine: Endocrine: Reports no additional endocrine complaints Hematologic/Lymphatic: Hematologic/Lymphatic: Reports no additional hematologic/lymphatic complaints Allergic/Immunologic: Allergic/Immunologic: Reports no additional allergic/immunologic complaints PMFSH Past Medical History Medical History CHF (congestive heart failure) DM2 (diabetes mellitus, type 2) Esophageal stricture Heart block AV third degree Hiatal hernia Hyperlipidemia Hypertension Kidney malignancy Overweight Pacemaker 2003 Peptic ulcer Thyroid nodule Urinary incontinence Surgical History Surgical History H/O prior ablation treatment uterine History of appendectomy History of cholecystectomy History of fusion of cervical spine Posterior cervical decompression and fusion C3-T1 on 06/22/2022 History of kidney removal Right Kidney Family History Family History (Reviewed 09/28/23 @ 13:59 by Mynor
--- NOTE | 2023-09-28 14:05 | ECG_ITS ---
Measurements Intervals [place] Rate: 68 P: 126 WV: 134 QRS: -64 QRSD: 194 T: 102 QT: 496 QTc: 531 Interpretive Statements ELECTRONIC VENTRICULAR PACEMAKER SINUS RHYTHM IS APPROPRIATELY SENSED ABNORMAL RHYTHM ECG COMPARED TO ECG 05/03/2023 11:35:50 ATRIUM IS NOW SENSED RATHER THAN PACED Electronically Signed On 09-28-2023 15:34:40 BUILDING MOVER by Toy Escalera M.D.
[2023-09-28 14:24] LABS: Basophils Absolute Auto 0.08 K/mm3 (0.00-0.10); Basophils Percent Auto 1.1 % (0.0-1.0); Eosinophils Absolute Auto 0.19 K/mm3 (0.02-0.50); Eosinophils Percent Auto 2.5 % (1.0-6.0); Hemoglobin 11.8 g/dL (11.7-13.8); Immature Granulocyte Absolute 0.01 K/mm3 (0.00-0.00); Immature Granulocyte Percent A 0.1 % (0.0-0.0); Lymphocytes Absolute Auto 2.44 K/mm3 (1.10-4.50); Lymphocytes Percent Auto 32.4 % (18.0-42.0); Mean Corpuscular HGB Conc 32.8 g/dL (32.0-36.0); Mean Corpuscular Hemoglobin 29.8 pg (27.0-31.0); Mean Corpuscular Volume 90.9 fL (78.0-102.0); Mean Platelet Volume 12.2 fl (9.2-11.8); Neutrophils Absolute Auto 4.2 K/mm3 (1.7-7.2); Neutrophils Percent Auto 55.9 % (50.0-70.0); Platelet Count Result 227 K/mm3 (150-420); Red Blood Count 3.96 M/mm3 (4.20-5.40); Red Cell Distribution Width 13.7 % (11.6-14.4); White Blood Count 7.5 K/mm3 (4.8-10.8)
[2023-09-28 14:42] LABS: Alanine Aminotransferase 12 U/L (14-59); Albumin Level 3.3 g/dL (3.4-5.0); Alkaline Phosphatase 48 U/L (46-116); Anion Gap 7 mmol/L (8-16); Aspartate Amino Transferase 22 U/L (15-37); Bilirubin,Total 1.2 mg/dL (0.00-1.00); Blood Urea Nitrogen 7 mg/dL (7-18); Calcium 8.9 mg/dL (8.5-10.1); Carbon Dioxide 31 mmol/L (21-32); Chloride 101 mmol/L (98-108); Estimated CRCL calculation 41 ml/min; Estimated Glomerular Filt Rate 60; Glucose 130 mg/dL (70-99); Osmolality Calculated 288 mOsm/kg (285-295); Potassium 2.9 mmol/L (3.5-5.1); Sodium 139 mmol/L (136-145); Total Protein 6.9 g/dL (6.4-8.2)
[2023-09-28 14:47] LABS: Troponin I 435.1 ng/L (0.00-60.4)
[2023-09-28 14:48] LABS: NT Pro B Type Natriuretic Pept 4473 pg/mL (0-450)
--- NOTE | 2023-09-28 15:05 | PC.NURSE ---
Pt updated about lab results. States her liner replacer is Dr. Linder at [facility]. Pt states her heart is only functioning at 25%
[2023-09-28] MEDS: ASPIRIN 81 MG CHEWABLE TABLET 324 MG PO (15:26)
[2023-09-28] MEDS: POTASSIUM CHLORIDE 20 MEQ ER TABLET 40 MEQ PO (15:27)
[2023-09-28] MEDS: FUROSEMIDE INJ 20 MG/2 ML VIAL 10 MG IV PUSH (15:28)
--- NOTE | 2023-09-28 17:01 | PC.NURSE ---
Pt given sandwich, chips, and soda. Updated about transfer calls. Waiting to see which facility will have availability first.
[2023-09-28 18:23] LABS: Troponin I 462.4 ng/L (0.00-60.4)
--- NOTE | 2023-09-28 18:51 | PC.NURSE ---
Spoke with Senior [employer] Systems Programmer at [facility], still no beds available. Pt accepted by hospitalist at [facility], but still waiting for room assignment.
[2023-09-28 22:12] LABS: Troponin I 427.7 ng/L (0.00-60.4)
== END 2023-09-28 23:50 | disposition home or self-care (01) ==
PROVIDERS: Emergency Provider Emergency Medicine; PCP Nurse Practitioner Family
DX: I11.0 Hypertensive heart disease with heart failure (principal); I50.9 Heart failure, unspecified; R79.89 Other specified abnormal findings of blood chemistry; E11.9 Type 2 diabetes mellitus without complications; E78.5 Hyperlipidemia, unspecified; Z87.891 Personal history of nicotine dependence
CPT/HCPCS: 36415; 80053; 83605; 83880; 84484; 85025; 93005; 96374; 99284; A9270; J1940

== ENCOUNTER 2023-09-29 00:37 | Inpatient (IN) | payer MEDICARE, SELFPAY ==
[2023-09-29] VITALS (23 sets, daily range): BP systolic 110–152; BP diastolic 65–87; PULSE 71–99; RESP 14–28; TEMP 36.5–37.1; O2SAT 90–99; BMI 25.5
--- NOTE | 2023-09-29 | ECHO_ITS ---
Patient Info Name: Lanette Irvin Age: 78 years : 1945 Gender: Female Ht: 62 in Wt: 135 lbs BSA: 1.65 m2 HR: 97 bpm BP: 141 / 76 mmHg Heart Rhythm: Sinus Rhythm Technical Quality: Good Exam Date: 09/29/2023 12:03 PM Exam Location: Echo Lab Patient Status: Inpatient Admit Date: 09/29/2023 Staff Ordering Physician: Zak Benavides MD Improvement Nurse: Karol Mckenna RDCS Attending Provider: Giuseppe Jones MD Exam Type: CA echo doppler color flow Study Info Indications - CHF Complete two-dimensional, color flow and Doppler transthoracic echocardiogram is performed. Summary 1. Complete two-dimensional, color flow and Doppler transthoracic echocardiogram is performed. 2. Borderline left ventricular enlargement with mild left ventricular hypertrophy and sigmoid septum. Severe left ventricular dysfunction is present, with particularly severe hypokinesis of the mid and distal septum, distal anterior wall and apex. Grade 2 diastolic dysfunction is present. Ejection fraction is estimated to be 30-35%. 3. Left atrial chamber dimension is mildly enlarged. 4. There is moderate aortic valve regurgitation. 5. There is moderate mitral valve regurgitation. 6. No pulmonary hypertension, estimated pulmonary arterial systolic pressure is 27 mmHg. 7. Probable left ventricular pacing. Left Ventricle Left ventricular chamber dimension is normal. Left ventricular systolic function is severely reduced, estimated at 30-35%. There is mildly increased left ventricular wall thickness. Left ventricular septal wall motion is normal. The left ventricular diastolic function is grade II diastolic dysfunction. Right Ventricle Right ventricular chamber dimension is normal. Right ventricular systolic function is normal. Linear artifact in right ventricle suggestive of catheter(s), pacemaker lead(s), or ICD lead(s). Left Atria Left atrial chamber dimension is mildly enlarged. Right Atria Right atrial chamber dimension is normal. Aortic Valve The aortic valve is trileaflet. There is moderate aortic valve sclerosis. There is no aortic valve stenosis. There is moderate aortic valve regurgitation. Pulmonic Valve The pulmonic valve is normal. There is no pulmonic valve stenosis. There is no pulmonic regurgitation. Mitral Valve The mitral valve has normal leaflets. There is no mitral valve stenosis. There is moderate mitral valve regurgitation. The mitral valve annulus is moderately calcified. Tricuspid Valve The tricuspid valve leaflets are normal. There is no significant tricuspid valve stenosis. There is trace tricuspid valve regurgitation. No pulmonary hypertension, estimated pulmonary arterial systolic pressure is 27 mmHg. Pericardium/Pleural The pericardium appears normal. There is no pericardial effusion. Inferior Vena Cava Normal inferior vena cava with >50% collapse upon inspiration consistent with Empty right atrial pressure, 10 mmHg. Aorta The aortic root size at the sinus of Valsalva is normal. The prox ascending aorta size is normal. Left Ventricular Outflow Tract Name Value Normal LVOT 2D LVOT Diameter 2.0 cm LVOT Doppler LVOT Peak Gradient 2 mmHg
--- NOTE | 2023-09-29 00:40 | ADMGEN ---
This patient, Lanette Irvin, was admitted to IMU Room 206-01 on 09/29/23 at 0032. Patient/family oriented to hospital policies and general routines including ID bracelet, bed and alarms, visiting hours, pain management, procedures, bathroom and other care routines, personal items, smoking policy, room service/diet, and visiting hours. Information on how to activate the Rapid Response Team has been discussed. Patient/Family are encouraged to report perceived risks to care and to ask questions if they do not understand what they are told or what they should do.
--- NOTE | 2023-09-29 01:02 | PM.IMHP ---
H&P: HPI History of Present Illness Date/Time: 09/29/23 01:02 Chief Complaint: sob Narrative: This is a 78-year-old female with past medical history significant for type diabetes mellitus, congestive heart failure, recent cervical spine surgery, esophageal stricture, complete heart block status post pacemaker, hypertension, dyslipidemia, peptic ulcer. Patient presents to the emergency room as a transfer from outside facility due to shortness of breath she was found to have elevated troponins was transferred to our facility for further evaluation management and treatment. Patient denies any chest pain, abdominal pain, nausea, vomiting, lightheadedness, dizziness, syncope or near-syncope, no fevers, no rigors, no chills. States that she has been having shortness of breath for 2 weeks which was of initially with minimal activity now is present at rest and wakes her up from her sleep as well. Preliminary workup was significant for elevated troponins brain natriuretic peptide was up worse of 4000. Patient has been admitted for further evaluation management and treatment Clinical Indication: Shortness of breath ?PA and lateral views of the chest: Comparison: 06/15/2022 Findings: The lungs are clear, without evidence of focal consolidation or pleural effusion.? Cardiomediastinal silhouette is stable, with pacemaker device. Bones and soft tissues are unremarkable. ? Impression: ? Clear lungs. CT Scan of the Chest without Contrast: Clinical Indication: Dyspnea on exertion Technique: Contiguous sections were acquired throughout the chest without intravenous contrast. Dose reduction technique was used on this scan by utilizing automated exposure control and iterative reconstruction technique. The dose-length product (DLP) was 125.37 mGy-cm. COMPARISON: 06/30/2020 Findings: Stable hypodense right thyroid lobe nodule noted. There is no evidence of any significant mediastinal, hilar or axillary lymphadenopathy. There are atherosclerotic calcifications of the aorta and coronary arteries. Minimal pericardial fluid present. There are [id number] bilateral pleural effusions, with minimal bibasilar atelectatic change. There is mild diffuse subpleural reticulation and minimal peripheral residual thickening. 3 mm peripheral right upper lobe pulmonary nodule noted (axial image 29). Images through the upper abdomen reveal no abnormalities. Impression: Small to moderate bilateral pleural effusions. Mild peripheral chronic interstitial disease. 3 mm right upper lobe pulmonary nodule. According to Fleischner Society criteria, for a low-risk patient, no further follow-up required. For a high-risk patient, consider 12 follow-up CT. Minimal pericardial fluid. Review of Systems Review of Systems: Shortness of breath Constitutional: Constitutional: Denies chills, Denies fatigue, Denies fever(s), Denies malaise, Denies night sweats, Reports poor appetite, Denies weakness and Reports weight loss Eyes: Eyes: Denies change in vision ENT: Reports dysphagia, Denies vertigo, Denies dizziness and Denies odynophagia Cardiovascular: Cardiovascular: Denies chest pain, Denies radiating jaw, neck or arm pain, Denies palpitations, Reports dyspnea, Reports dyspnea on exertion, Reports orthopnea and Reports paroxysmal nocturnal dyspnea Gastrointestinal: Gastrointestinal: Denies abdominal pain, Denies dyspepsia, Denies heartburn, Denies nausea and Denies vomiting Genitourinary: Genitourinary: Denies dysuria Musculoskeletal: Musculoskeletal: Denies myalgias, Denies limited range of motion and Denies neck pain Integumentary/Breasts: Skin/Breast: Denies rash Neurologic: Denies abnormal gait, Denies vertigo, Denies dizziness, Denies focal weakness and Denies Sensory deficit (Neuro) Psychiatric: Psychiatric: Reports no additional psychiatric complaints and Reports as per HPI Endocrine: Endocrine: Denies cold intolerance, Denies fatigue, Den
[2023-09-29] MEDS: FUROSEMIDE INJ 40 MG/4 ML VIAL IV PUSH ×2 (03:55→16:37)
[2023-09-29] MEDS: POTASSIUM CHLORIDE INJ 40 MEQ in SODIUM CHLORIDE 0.9% IV 500 ML 130 MEQ IVPB (03:55)
[2023-09-29 05:05] LABS: Mean Platelet Volume 12.8 fl (7.4-10.4); Platelet Count Result 260 k/mm3 (150-375)
[2023-09-29 05:30] LABS: Estimated CRCL calculation 33 ml/min; Estimated Glomerular Filt Rate 54
[2023-09-29] MEDS: carvediloL 25 MG TABLET PO ×2 (09:26→20:52)
[2023-09-29] MEDS: oxyBUTYnin CHLORIDE 5 MG TABLET PO ×2 (09:26→20:53)
[2023-09-29] MEDS: FLUTICASONE PROPIONATE 0.05% NA SPR 16 GM BTL (*BKC) 2 SPRAY NASAL (09:27)
[2023-09-29] MEDS: LORATADINE 10 MG TABLET PO (09:27)
[2023-09-29] MEDS: ENOXAPARIN 40 MG/0.4 ML SYRINGE SUB-Q (09:27)
[2023-09-29] MEDS: SACUBITRIL/VALSARTAN 24-26 MG TABLET 1 TAB PO ×2 (09:27→20:53)
[2023-09-29] MEDS: allopurinoL 100 MG TABLET PO (09:27)
--- NOTE | 2023-09-29 10:43 | PM.CNCAR ---
Assessment and Plan Assessment and plan (1) Acute combined systolic and diastolic congestive heart failure: Code(s): I50.41 - Acute combined systolic (congestive) and diastolic (congestive) heart failure Status: Acute Assessment and Plan: Patient presents with new onset of acute CHF with bilateral pleural effusions. She is responding well to IV Lasix. --continue carvedilol and Entresto. Patient declines titration of Entresto as she feels her gout attack was because of Entresto --continue furosemide 40 mg IV push b.i.d. for another day --add spironolactone --unfortunately intolerant of SGOT 2 inhibitor Jardiance due to yeast infection --increase activity --discussed sodium and fluid restrictions --Daily BMP --cancelled echo since she had 1 done in August and we are planning to repeat it in October to re-assess EF --possibly home tomorrow? (2) Elevated troponin: Code(s): R79.89 - Other specified abnormal findings of blood chemistry Status: Acute Assessment and Plan: Patient has elevated troponin. No chest pain. Recent CT coronary fractional flow reserve showed no perfusion abnormalities. I think this is related to her acute CHF. --no further workup needed (3) Cardiomyopathy: Code(s): I42.9 - Cardiomyopathy, unspecified Status: Acute Assessment and Plan: Remote history of a mild cardiomyopathy with normalization of left ventricular function. However she has had a recent decline with EF of 25-30%. Unclear if this is the natural history of her underlying cardiomyopathy or perhaps due to chronic right ventricular pacing. (4) CAD (coronary artery disease): Code(s): I25.10 - Atherosclerotic heart disease of [place] coronary artery without angina pectoris Status: Acute Assessment and Plan: Coronary CTA shows moderate Left anterior descending disease which is asymptomatic. --continue aspirin --unfortunately has statin intolerance. Will address at a later date, probably add ezetimibe. However due to her multiple drug intolerances is best to do 1 thing at a time. (5) Pacemaker: Code(s): Z95.0 - Presence of cardiac pacemaker Status: Acute Assessment and Plan: History of pacemaker implanted many years ago for complete heart block. Checked recently, normal function, RV pacing nearly 100% of the time. Sometimes the RV pacing can lead to a cardiomyopathy and we may need to consider an upgrade to a biventricular pacemaker. (6) Interstitial lung disease: Code(s): J84.9 - Interstitial pulmonary disease, unspecified Status: Acute Assessment and Plan: CT scan suggests the patient may have mild interstitial lung disease. Consider PFTs as an outpatient. Also had a lung nodule which will need follow-up CT in the next year. (7) Medication side effects: Code(s): T88.7XXA - Unspecified adverse effect of drug or medicament, initial encounter Status: Acute Assessment and Plan: Patient states that her body does not tolerate some medications very well and she does have multiple medications side effects. History of Present Illness History of Present Illness Consult date/time: 09/29/23 10:43 Reason For Visit: CHF/Elevated Trop Narrative: Lanette Irvin is a 78-year-old female whom we were asked to see at the request of Dr. Jones for advice and opinion regarding her CHF and elevated troponin, in consultation. She is followed by Dr. Linder in our office for her cardiomyopathy and she has a history of complete heart block status post [employer] pacemaker. She also has a history of [id number] CAD, nonischemic cardiomyopathy with normalization of LV function until recently when echo showed a decline 2 EF of 25%, hypertension, renal cell carcinoma status post partial right nephrectomy. Cardiac catheterization in 2019 showed no significant disease. Echo in our office in July 2023 showed a significant de
[2023-09-29 11:11] LABS: Anion Gap 12 mmol/L (8-16); Blood Urea Nitrogen 9 mg/dL (7-17); Calcium 9.9 mg/dL (8.4-10.2); Carbon Dioxide 27 mmol/L (22-30); Chloride 104 mmol/L (98-107); Estimated CRCL calculation 36 ml/min; Estimated Glomerular Filt Rate > 60; Glucose 155 mg/dL (65-110); Phosphorus 3.5 mg/dL (2.5-4.5); Potassium 4.1 mmol/L (3.4-5.0); Sodium 143 mmol/L (137-145)
[2023-09-29 11:23] LABS: Troponin I < 0.012 ng/mL (0.000-0.034)
[2023-09-29 12:17] LABS: Folic Acid 9.7 ng/mL (2.76->20)
[2023-09-29] MEDS: SPIRONOLACTONE 25 MG TABLET PO (12:28)
--- NOTE | 2023-09-29 13:58 | PM.IMPN ---
Progress Note: A&P Assessment and Plan (1) Acute combined systolic and diastolic congestive heart failure: Code(s): I50.41 - Acute combined systolic (congestive) and diastolic (congestive) heart failure Status: Acute Assessment and Plan: Patient presents to outside hospital with complaints of SOB. CT chest showing mild peripheral chronic interstitial lung disease and small-moderate bilateral pleural effusions. She does have ILD to explain some of these findings. ProBNP 4470. Echo done in the office recently showing systolic and diastolic CHF. She was started on lasix IV with good UOP and symptomatic care. Continue Coreg and Entresto. Spirnolactone added Multiple allergies to medications limit approrpiate treatment. (2) Elevated troponin: Code(s): R79.89 - Other specified abnormal findings of blood chemistry Status: Acute Assessment and Plan: Troponin elevated but flat to 462 (0-60 normal). Repeat Trop here was normal. EKG showing paced rhythm. cardiology consulted and appreciate their input. (3) DM2 (diabetes mellitus, type 2): Code(s): E11.9 - Type 2 diabetes mellitus without complications Status: Acute Assessment and Plan: The patient's blood glucose was reviewed on 09/29 Glucose remains well controlled. Start AccuCheks covering with sliding scale. Hypoglycemia protocol will be made available as needed. Continue to follow (4) Cardiomyopathy: Code(s): I42.9 - Cardiomyopathy, unspecified Status: Acute Assessment and Plan: As above. Recent Echo in July showing EF25%. More recent stress test showing EF 32%. Continue above treatment. (5) CAD (coronary artery disease): Code(s): I25.10 - Atherosclerotic heart disease of [place] coronary artery without angina pectoris Status: Acute Assessment and Plan: She had a Lexiscan stress test in August which showed ejection fraction of 32%, with a abnormal myocardial perfusion suggesting serg-infarct ischemia in the in for area and apical lateral apical anterior rosario.? Coronary CTA showed moderate stenosis of the mid LAD and mild disease of the proximal LAD, right coronary artery and circumflex with a coronary calcium score 304.? Continue medical management. Continue ASA (6) Interstitial lung disease: Code(s): J84.9 - Interstitial pulmonary disease, unspecified Status: Acute Assessment and Plan: Patient with new peripheral reticulation of both lungs, possible early fibrosis.? She is scheduled for a Chest CT in the future for evaluation.? Probabl some of the findings noted on admission CT (7) Pacemaker: Code(s): Z95.0 - Presence of cardiac pacemaker Status: Acute Assessment and Plan: Stable (8) Hypertension: Code(s): I10 - Essential (primary) hypertension Status: Acute Assessment and Plan: Patient's blood pressure was reviewed on 09/29 Blood pressure remains well controlled. Will continue current medications. Plan DVT prophylaxis - Lovenox Code status - Full Subjective Date/time seen: 09/29/23 13:58 Interval history: 78yo female with CHF, DM, hx of CHB requiring PM and HTN here for increasing SOB. Assuming care. Chart reviewed. She feels much better. Voiding well. Slight RAMÍREZ when walking back from the bathroom. No CP. Exam Narrative: AF 98.8 117/78 85 14 97%ra Gen - NARD Chest - dry bibasilar inspiratory crackles, nml RR CV - RRR S1/S2 with 2/6 systolic murmur USB. Tele showing mostly paced rhythm with occasional PVCs Abd - Soft, NT/ND, Positive BS Ext - No pedal edema Psych - Nml mood and affect Skin - Warm and dry Objective Data Vital Signs Vital Signs: Vital Signs - 24 hr 09/29/23 00:45 09/29/23 00:42 09/29/23 02:00 Temperature 97.7 F Pulse Rate 98 99 77 Respiratory Rate 22 H Blood Pressure 152/87 H Pulse Oximetry 93 Oxygen Delivery Oxygen
[2023-09-29 16:20] LABS: Glucose Point of Care 176 mg/dl (65-105)
[2023-09-29] MEDS: CYANOCOBALAMIN INJ 1,000 MCG/ML VIAL 1000 MCG IM (16:37)
[2023-09-29 19:59] LABS: Glucose Point of Care 192 mg/dl (65-105)
[2023-09-29] MEDS: ASPIRIN 81 MG ENTERIC TABLET PO (20:52)
[2023-09-30] VITALS (17 sets, daily range): BP systolic 93–126; BP diastolic 60–77; PULSE 65–110; RESP 16–18; TEMP 35.9–36.8; O2SAT 93–100
[2023-09-30 05:02] LABS: Anion Gap 9 mmol/L (8-16); Blood Urea Nitrogen 13 mg/dL (7-17); Calcium 9.6 mg/dL (8.4-10.2); Carbon Dioxide 34 mmol/L (22-30); Chloride 96 mmol/L (98-107); Estimated CRCL calculation 30 ml/min; Estimated Glomerular Filt Rate 48; Glucose 138 mg/dL (65-110); Sodium 139 mmol/L (137-145)
[2023-09-30 05:08] LABS: Hemoglobin A1C 6.4 % (<5.7)
[2023-09-30 08:09] LABS: Glucose Point of Care 134 mg/dl (65-105)
[2023-09-30 08:29] LABS: Magnesium 1.4 mg/dL (1.6-2.3)
[2023-09-30] MEDS: carvediloL 25 MG TABLET PO (09:36)
[2023-09-30] MEDS: allopurinoL 100 MG TABLET PO (09:36)
[2023-09-30] MEDS: POTASSIUM CHLORIDE 20 MEQ ER TABLET 40 MEQ PO (09:36)
[2023-09-30] MEDS: CYANOCOBALAMIN 1,000 MCG TABLET 1000 MCG PO (09:37)
[2023-09-30] MEDS: oxyBUTYnin CHLORIDE 5 MG TABLET PO (09:37)
[2023-09-30] MEDS: FUROSEMIDE INJ 40 MG/4 ML VIAL IV PUSH (09:37)
[2023-09-30] MEDS: SACUBITRIL/VALSARTAN 24-26 MG TABLET 1 TAB PO (09:37)
[2023-09-30] MEDS: ENOXAPARIN 40 MG/0.4 ML SYRINGE SUB-Q (09:37)
[2023-09-30] MEDS: LORATADINE 10 MG TABLET PO (09:37)
[2023-09-30] MEDS: SPIRONOLACTONE 25 MG TABLET PO (09:39)
--- NOTE | 2023-09-30 10:20 | PM.PNCARD ---
Progress Note: A&P Assessment and Plan (1) Acute combined systolic and diastolic congestive heart failure: Code(s): I50.41 - Acute combined systolic (congestive) and diastolic (congestive) heart failure Status: Acute Assessment and Plan: Patient presents with new onset of acute CHF with bilateral pleural effusions. She responded well to IV Lasix. Still with rales but that may be due to interstitial lung disease. Often on O2. --continue carvedilol and Entresto. Patient declines titration of Entresto as she feels her gout attack was because of Entresto --change furosemide to 20 mg p.o. daily. --added spironolactone --unfortunately intolerant of SGOT 2 inhibitor Jardiance due to yeast infection --increase activity --Check O2 sat w/ ambulation, possibly home today. (2) Elevated troponin: Code(s): R79.89 - Other specified abnormal findings of blood chemistry Status: Inactive Assessment and Plan: Patient has elevated troponin. No chest pain. Recent CT coronary fractional flow reserve showed no perfusion abnormalities. I think this is related to her acute CHF. --no further workup needed (3) Cardiomyopathy: Code(s): I42.9 - Cardiomyopathy, unspecified Status: Acute Assessment and Plan: Remote history of a mild cardiomyopathy with normalization of left ventricular function. However she has had a recent decline with EF of 25-30%. Unclear if this is the natural history of her underlying cardiomyopathy or perhaps due to chronic right ventricular pacing. (4) CAD (coronary artery disease): Code(s): I25.10 - Atherosclerotic heart disease of [place] coronary artery without angina pectoris Status: Acute Assessment and Plan: Coronary CTA shows moderate Left anterior descending disease which is asymptomatic. --continue aspirin --unfortunately has statin intolerance. Will address at a later date, probably add ezetimibe. However due to her multiple drug intolerances is best to do 1 thing at a time. (5) Pacemaker: Code(s): Z95.0 - Presence of cardiac pacemaker Status: Acute Assessment and Plan: History of pacemaker implanted many years ago for complete heart block. Checked recently, normal function, RV pacing nearly 100% of the time. Sometimes the RV pacing can lead to a cardiomyopathy and we may need to consider an upgrade to a biventricular pacemaker. (6) Interstitial lung disease: Code(s): J84.9 - Interstitial pulmonary disease, unspecified Status: Acute Assessment and Plan: CT scan suggests the patient may have mild interstitial lung disease. Consider PFTs as an outpatient. Also had a lung nodule which will need follow-up CT in the next year. (7) Hypokalemia: Code(s): E87.6 - Hypokalemia Status: Acute Assessment and Plan: Supplemented, follow as outpatient with a BMP in 1 week. (8) Medication side effects: Code(s): T88.7XXA - Unspecified adverse effect of drug or medicament, initial encounter Status: Acute Assessment and Plan: Patient states that her body does not tolerate some medications very well and she does have multiple medications side effects. Subjective Date/time seen: 09/30/23 10:20 Interval history: Follow-up for acute on chronic diastolic heart failure, worsening cardiomyopathy. Possible interstitial lung disease. History of pacemaker and CAD. 09/29/2023: Continue furosemide 40 mg IV push b.i.d., added spironolactone. Date of service 09/30/2023: Feels good, has not been out of bed today but yesterday when she walked to the bathroom she was only mildly short of breath. Off and on O2 at 2 L. no PND orthopnea. Eager for discharge today. Good response to furosemide,I's and O's 1200/00052 yesterday. K+ down to 3.0. Echo yesterday did not show much change, EF 30-35%. Telemetry: Sinus rhythm, ventricular pacing Review of Systems Review of Systems:
[2023-09-30 12:13] LABS: Glucose Point of Care 177 mg/dl (65-105)
--- NOTE | 2023-09-30 13:57 | PCRCNOTE ---
HOME OXYGEN EVALUATION COMPLETE; PT. DOES NOT REQUIRE HOME OXYGEN. DR. TIRADO WAS CALLED AND NOTIFIED OF THE RESULTS. PT.'S R.N. ALSO NOTIFIED.
--- NOTE | 2023-09-30 15:58 | PM.DS ---
DS: Admitting Diagnosis Discharge Date 09/30/23 Admitting Diagnosis Shortness of breath DS: Discharge Diagnosis Discharge Diagnosis (1) Acute combined systolic and diastolic congestive heart failure: Code(s): I50.41 - Acute combined systolic (congestive) and diastolic (congestive) heart failure Status: Acute (2) Elevated troponin: Code(s): R79.89 - Other specified abnormal findings of blood chemistry Status: Inactive (3) DM2 (diabetes mellitus, type 2): Code(s): E11.9 - Type 2 diabetes mellitus without complications Status: Acute (4) Cardiomyopathy: Code(s): I42.9 - Cardiomyopathy, unspecified Status: Acute (5) CAD (coronary artery disease): Code(s): I25.10 - Atherosclerotic heart disease of [place] coronary artery without angina pectoris Status: Acute (6) Interstitial lung disease: Code(s): J84.9 - Interstitial pulmonary disease, unspecified Status: Acute (7) Pacemaker: Code(s): Z95.0 - Presence of cardiac pacemaker Status: Acute (8) Hypertension: Code(s): I10 - Essential (primary) hypertension Status: Acute DS: Summary Hospital Course Reason for hospitalization: 78yo female with CHF, DM, hx of CHB requiring PM and HTN here for increasing SOB. Please see H&P for details Hospital Course: Patient presents to outside hospital with complaints of SOB. CT chest showing mild peripheral chronic interstitial lung disease and small-moderate bilateral pleural effusions. She does have ILD to explain some of these findings. ProBNP 4470. Echo done in the office recently showing systolic and diastolic CHF. She was started on lasix IV with good UOP and symptomatic improvement. We continued Coreg and Entresto. Spironolactone added. Multiple allergies to medications limits treatment. Troponin was elevated but flat to 462 (0-60 normal). Repeat Trop here was normal. EKG showing paced rhythm. Cardiology consulted and appreciate their input. She had a Lexiscan stress test in August which showed ejection fraction of 32%, with a abnormal myocardial perfusion suggesting serg-infarct ischemia in the apical lateral apical anterior rosario.?Coronary CTA showed moderate stenosis of the mid LAD and mild disease of the proximal LAD, right coronary artery and circumflex with a coronary calcium score 304.?Patient with new peripheral reticulation of both lungs, possible early fibrosis.? She is scheduled for a Chest CT in the future for evaluation.? Probable some of the symptoms on admission and findings noted on admission CT. She had clinical improvement. Home o2 evaluation showed she did not need home oxygen. B12 Deficiency noted. B12 low end of normal in 2019 so repeated here and found to be low. Folate and TSH normal. She received B12 injection and home with oral B12. She was able to be discharged home on 09/30/23. Status at Discharge Cognitive/behavioral status at discharge: Stable Time Spent with Patient Time attestation: Total time spent providing and/or coordinating discharge services: 32 minutes Time spent: Greater than 30 minutes Exam Narrative: AF 97.7 93/64 76 18 96%ra Gen - NARD Chest - dry bibasilar inspiratory crackles, nml RR CV - RRR S1/S2. Tele showing mostly paced rhythm. Abd - Soft, NT/ND, Positive BS Ext - No pedal edema Psych - Nml mood and affect Skin - Warm and dry DS: Data Data Completed and Pending Labs on day of discharge: Labs from last 24 hours 09/30/23 09/30/23 09/30/23 11:27 07:51 04:16 Sodium 139 Potassium 3.0 L Chloride 96 L Carbon Dioxide 34 H Anion Gap 9 BUN 13 Creatinine 1.10 H Estim Creat Clear Calc 30 Estimated GFR 48 L Glucose 138 H POC Capillary Glucose 177 H 134 H Hemoglobin A1c 6.4 H Calcium 9.6 Magnesium 1.4 L 09/29/23 09/29/23 19:36 15:51 Sodium Potassium Chloride Carbon Dioxide Anion Gap BUN Creatinine
== END 2023-09-30 18:05 | disposition home or self-care (01) | DRG 291 ==
PROVIDERS: Internal Medicine Cardiovascular Disease; Admitting Provider Internal Medicine; PCP Nurse Practitioner Family; Visit Provider Internal Medicine
DX: I11.0 Hypertensive heart disease with heart failure (principal); I50.43 Acute on chronic combined systolic (congestive) and diastolic (congestive) heart failure; J84.9 Interstitial pulmonary disease, unspecified; I43 Cardiomyopathy in diseases classified elsewhere; E87.6 Hypokalemia; E53.8 Deficiency of other specified B group vitamins; E11.9 Type 2 diabetes mellitus without complications; E78.5 Hyperlipidemia, unspecified; I25.10 Atherosclerotic heart disease of native coronary artery without angina pectoris; Z28.21 Immunization not carried out because of patient refusal; Z95.0 Presence of cardiac pacemaker; Z90.49 Acquired absence of other specified parts of digestive tract; Z98.1 Arthrodesis status; Z90.5 Acquired absence of kidney; Z87.891 Personal history of nicotine dependence; Z79.82 Long term (current) use of aspirin; Z79.84 Long term (current) use of oral hypoglycemic drugs
CPT/HCPCS: 36415; 71250; 80048; 80069; 82565; 82607; 82746; 82948; 83036; 83735; 84443; 84484; 85049; 93306; 94618; A9270; J1650; J1940; J3420; J3480; J7040

== ENCOUNTER 2023-10-02 06:37 | Emergency (ER) | payer MEDICARE, SELFPAY ==
[2023-10-02] VITALS (9 sets, daily range): BP systolic 105–139; BP diastolic 62–92; PULSE 63–91; RESP 15–20; TEMP 36.2–36.6; O2SAT 95–99
--- NOTE | ~2023-10-02 | CT_ITS ---
EXAMINATION: CTA chest abdomen pelvis DATE: 10/02/2023 08:15 INDICATION: Chest pain. TECHNIQUE: Computed tomographic angiography (CTA) of the chest, abdomen, and pelvis was performed wit h 100 mL Omnipaque-350 intravenous contrast. Automated exposure control and iterative reconstruction technique were employed. The dose-length product was 363.36 mGy-cm. Maximum intensity projection 3D-r econstructions of the aorta and other arteries were constructed by the technologist on a separate wor kstation. COMPARISON: Chest CT 09/28/2023, 02/14/2017 FINDINGS: CHEST CTA: There is peripheral septal thickening in the lungs, consistent with mild pulmonary edema. There are a few nodules in the lungs measuring up to 4 mm, likely benign. There are small pleural effusions. The re is a 19 mm nodule in right thyroid lobe with decrease in size from 02/14/2017, likely benign. There is left ventricular enlargement of the heart. No pericardial effusion. There is a left chest wall pa cer with leads in the right atrium and right ventricle. Thoracic aorta is normal in caliber. Aortic a therosclerosis is noted. There is severe thoracic spondylosis. There are changes of posterior fusion procedure from cervical spine to T1. ABDOMEN AND PELVIS CTA: There is a 14 mm cyst in the liver. There are changes of cholecystectomy. The spleen, pancreas, and a drenal glands are normal. There is cortical thinning of the kidneys. There is diverticulosis of the c olon without evidence of diverticulitis. There are no dilated loops of bowel. There are no pathologic ally enlarged lymph nodes. There is no free intraperitoneal fluid. There is calcified atherosclerosis of the aorta and many of the other arteries. There is no significant stenosis of celiac axis, superi or mesenteric artery, the renal arteries, or inferior mesenteric artery. There are old healed fractur es of the superior and inferior pubic rami and right sacral ala. There is severe lumbar spondylosis. IMPRESSION: 1. Aortic atherosclerosis. No aneurysm or dissection. 2. Mild pulmonary edema with small pleural effusions. 3. Left ventricular enlargement of the heart. Reviewed, dictated and finalized at location E. CE MESSENGER
--- NOTE | 2023-10-02 06:39 | ECG_ITS ---
Measurements Intervals [place] Rate: 64 P: 262 OR: 182 QRS: -75 QRSD: 221 T: 89 QT: 562 QTc: 582 Interpretive Statements ELECTRONIC ATRIAL PACEMAKER ELECTRONIC VENTRICULAR PACEMAKER COMPARED TO ECG 09/28/2023 14:27:34 ATRIAL PACING NOW PRESENT Electronically Signed On 10-02-2023 15:53:16 [employer] by Heather Palm M.D.
--- NOTE | 2023-10-02 07:00 | ED.GENADULT ---
HPI - General Adult General Chief complaint: Chest Pain <Mauricio Shirley DO - Last Filed: 10/05/23 13:10> Stated complaint: chest pain <Mauricio Shirley DO - Last Filed: 10/05/23 13:10> Time Seen by Provider: 10/02/23 06:44 <Mauricio Shirley DO - Last Filed: 10/05/23 13:10> Source: patient <Mynor Thomas MD - Last Filed: 10/02/23 10:35> Mode of arrival: ambulatory <Mynor Thomas MD - Last Filed: 10/02/23 10:35> Limitations: no limitations <Mynor Thomas MD - Last Filed: 10/02/23 10:35> History of Present Illness HPI narrative: Lanette is a 78F with a PMH of DMII, gout, CAD, heart block s/p pacemaker, HTN, HLD and HFrEF (25%) that presented to the ED with chest pain. She has pain in her central chest that radiates to her back and up to her right jaw. It feels like a tight grabbing pain. There is no lightheadedness, nausea, vomiting, diarrhea or fevers. She states that she has had this before and it usually goes away with ice water but it did not this time. <Mauricio Shirley DO - Last Filed: 10/05/23 13:10> Onset (ago): hour(s) <Mynor Thomas MD - Last Filed: 10/02/23 10:35> Location: chest <Mynor Thomas MD - Last Filed: 10/02/23 10:35> Radiation: back <Mynor Thomas MD - Last Filed: 10/02/23 10:35> Severity: moderate <Mynor Thomas MD - Last Filed: 10/02/23 10:35> Severity scale (1-10): 5 <Mynor Thomas MD - Last Filed: 10/02/23 10:35> Quality: sharp <Mynor Thomas MD - Last Filed: 10/02/23 10:35> Pain Consistency: intermittent and now resolved <Mynor Thomas MD - Last Filed: 10/02/23 10:35> Relieving factors: none <Mynor Thomas MD - Last Filed: 10/02/23 10:35> Exacerbating factors: none <Mynor Thomas MD - Last Filed: 10/02/23 10:35> Associated symptoms: chest pain <Mynor Thomas MD - Last Filed: 10/02/23 10:35> Treatments prior to arrival: none <Mynor Thomas MD - Last Filed: 10/02/23 10:35> Related Data Home medications: Home Medications Medication Instructions Recorded Confirmed aspirin 81 mg tablet,delayed 81 mg PO HS 10/28/19 09/29/23 release (Adult Low Dose Aspirin) mometasone 50 mcg/actuation nasal 1 spray intranasal BID 10/28/19 09/29/23 spray (Nasonex) loratadine 10 mg tablet (Claritin) 10 mg PO DAILY 01/27/20 09/29/23 sacubitril 24 mg-valsartan 26 mg 1 tablet PO BID 09/06/23 09/29/23 tablet (Entresto) albuterol sulfate 90 mcg/actuation 1 - 2 puff inhalation Q4-6H PRN 09/28/23 09/29/23 aerosol inhaler Shortness Of Breath Or Wheezing allopurinol 100 mg tablet 100 mg PO DAILY 09/28/23 09/29/23 carvedilol 25 mg tablet 25 mg PO BID 09/29/23 09/29/23 metformin 500 mg tablet 500 mg PO BID 09/29/23 09/29/23 oxybutynin chloride 5 mg tablet 5 mg PO BID 09/29/23 09/29/23 <Mauricio Shirley DO - Last Filed: 10/05/23 13:10> Allergies/adverse reactions: Allergies Allergy/AdvReac Type Severity Reaction Status Date / Time adhesive tape Allergy Intermediate Blister Verified 10/02/23 07:01 amoxicillin Allergy Intermediate struggle Verified 10/02/23 07:01 to breath and diarrhea codeine Allergy Intermediate Gastrointestinal Verified 10/02/23 07:01 Upset morphine Allergy Intermediate Gastrointestinal Verified 10/02/23 07:01 Upset Chcjztd-ILE-BmR Reductase Allergy Intermediate Aches and Verified 10/02/23 07:01 Inhibitor pains, [Bihuluv-Qzk-Kdn Reductase hurts all Inhibitor] over. sulfamethoxazole [Bactrim] Allergy Intermediate unknown Verified 10/02/23 07:01 sulfamethizole Allergy Unknown unknown Verified 10/02/23 07:01 trimethoprim Allergy Unknown unknown Verified 10/02/23 07:01 egg yolk Allergy Unknown Verified 10/02/23 07:01 prednisone Allergy hyperactivity, Verified 10/02/23 07:01 agitation, restlessness, weight loss terfenadine [From Seldane] Allergy Unknown Verifie
[2023-10-02 07:07] LABS: Basophils Absolute Auto 0.06 K/mm3 (0.00-0.10); Basophils Percent Auto 0.6 % (0.0-1.0); Eosinophils Absolute Auto 0.38 K/mm3 (0.02-0.50); Hematocrit 38.6 % (35.0-42.0); Hemoglobin 12.6 g/dL (11.7-13.8); Immature Granulocyte Absolute 0.02 K/mm3 (0.00-0.00); Immature Granulocyte Percent A 0.2 % (0.0-0.0); Lymphocytes Absolute Auto 3.33 K/mm3 (1.10-4.50); Lymphocytes Percent Auto 35.2 % (18.0-42.0); Mean Corpuscular HGB Conc 32.6 g/dL (32.0-36.0); Mean Corpuscular Hemoglobin 29.3 pg (27.0-31.0); Mean Corpuscular Volume 89.8 fL (78.0-102.0); Mean Platelet Volume 12.3 fl (9.2-11.8); Monocytes Absolute Auto 0.99 K/mm3 (0.10-0.90); Monocytes Percent Auto 10.5 % (2.0-11.0); Neutrophils Absolute Auto 4.7 K/mm3 (1.7-7.2); Neutrophils Percent Auto 49.5 % (50.0-70.0); Platelet Count Result 225 K/mm3 (150-420); Red Cell Distribution Width 13.7 % (11.6-14.4); White Blood Count 9.5 K/mm3 (4.8-10.8)
[2023-10-02 07:20] LABS: Prothrombin Time 11.4 Seconds (9.50-12.10)
[2023-10-02 07:34] LABS: Alanine Aminotransferase 15 U/L (14-59); Albumin Level 3.7 g/dL (3.4-5.0); Alkaline Phosphatase 57 U/L (46-116); Anion Gap 6 mmol/L (8-16); Aspartate Amino Transferase 14 U/L (15-37); Bilirubin,Total 0.8 mg/dL (0.00-1.00); Blood Urea Nitrogen 21 mg/dL (7-18); Calcium 9.6 mg/dL (8.5-10.1); Carbon Dioxide 36 mmol/L (21-32); Chloride 95 mmol/L (98-108); Estimated Glomerular Filt Rate 43; Glucose 149 mg/dL (70-99); Magnesium 1.3 mg/dL (1.8-2.4); NT Pro B Type Natriuretic Pept 593 pg/mL (0-450); Osmolality Calculated 290 mOsm/kg (285-295); Potassium 2.9 mmol/L (3.5-5.1); Sodium 137 mmol/L (136-145); Total Protein 7.3 g/dL (6.4-8.2)
[2023-10-02 07:35] LABS: Troponin I 356.5 ng/L (0.00-60.4)
[2023-10-02] MEDS: MAGNESIUM OXIDE 400 MG TABLET 800 MG PO (08:14)
[2023-10-02] MEDS: POTASSIUM CHLORIDE 20 MEQ ER TABLET 40 MEQ PO (08:14)
[2023-10-02 09:18] LABS: Troponin I 356.6 ng/L (0.00-60.4)
== END 2023-10-02 11:00 | disposition home or self-care (01) ==
PROVIDERS: Family Medicine; Emergency Provider Emergency Medicine; PCP Nurse Practitioner Family
DX: R07.89 Other chest pain (principal); I11.0 Hypertensive heart disease with heart failure; I50.9 Heart failure, unspecified; E11.9 Type 2 diabetes mellitus without complications; I25.10 Atherosclerotic heart disease of native coronary artery without angina pectoris; E78.5 Hyperlipidemia, unspecified; Z79.899 Other long term (current) drug therapy; Z79.82 Long term (current) use of aspirin; Z87.891 Personal history of nicotine dependence
CPT/HCPCS: 36415; 71275; 74174; 80053; 83735; 83880; 84484; 85025; 85610; 93005; 99284; A9270; Q9967

== ENCOUNTER 2023-10-15 12:20 | Outpatient (CLI) | payer MEDICARE, SELFPAY ==
[2023-10-15 13:48] LABS: Alanine Aminotransferase 16 U/L (14-59); Albumin Level 4.1 g/dL (3.4-5.0); Alkaline Phosphatase 54 U/L (46-116); Anion Gap 12 mmol/L (8-16); Aspartate Amino Transferase 13 U/L (15-37); Blood Urea Nitrogen 18 mg/dL (7-18); Carbon Dioxide 29 mmol/L (21-32); Chloride 100 mmol/L (98-108); Estimated Glomerular Filt Rate 41; Glucose 133 mg/dL (70-99); Magnesium 1.2 mg/dL (1.8-2.4); NT Pro B Type Natriuretic Pept 581 pg/mL (0-450); Osmolality Calculated 295 mOsm/kg (285-295); Potassium 3.5 mmol/L (3.5-5.1); Sodium 141 mmol/L (136-145); Total Protein 7.7 g/dL (6.4-8.2); Uric Acid 8.2 mg/dL (2.6-6.0)
== END 2023-10-15 12:21 | disposition home or self-care (01) ==
LOC: CHSLAB 12:23
PROVIDERS: PCP Nurse Practitioner Family; Visit Provider Nurse Practitioner Family
DX: E87.6 Hypokalemia (principal); E83.42 Hypomagnesemia; M10.9 Gout, unspecified; I50.41 Acute combined systolic (congestive) and diastolic (congestive) heart failure
CPT/HCPCS: 36415; 80053; 83735; 83880; 84550

== ENCOUNTER 2023-10-18 14:24 | Outpatient (CLI) | payer MEDICARE, SELFPAY ==
--- NOTE | 2023-10-19 08:47 | WPDPFTINT ---
PFT Procedure Performed PFT Procedure Performed Plethysmography (Lung Vol) Diffusing Cap (DLCO) Flow Vol Loop Spirometry w/o Bronchodil PFT Interpretation This is a pulmonary function test with spirometry, plethysmography and diffusing capacity. The test was performed and results interpreted in accordance with the 2019 and 2005 ATS/ERS Task Force guidelines respectively using the Global Lung Function Initiative-2012 reference equations. Patient demonstrated good effort and cooperation. Reproducibility criteria were met. The quality of the spirometry maneuver was Grade A. Findings: Spirometry: The contour the inspiratory and expiratory flow tracing are normal. The FVC is 1.99 L, 83% predicted. The FEV1 is 1.56 L, 85% predicted. The FEV1: FVC ratio 78%. Plethysmography: The total lung capacity is 3.45 L, 74% predicted. The functional residual capacity is 2.08 L, 78% predicted. The residual volume is 1.36 L, 62% predicted. Diffusing capacity: The diffusing capacity unadjusted for hemoglobin and carboxyhemoglobin is 8.0, 43% predicted. The diffusing capacity adjusted for alveolar volume is 3.05, 71% predicted. Impression: There is a mild restrictive ventilatory abnormality with a normal FEV1. The spirometry is normal without evidence of an obstructive abnormality. The diffusing capacity unadjusted for hemoglobin and carboxyhemoglobin is moderately decreased and normalizes when adjusted for alveolar volume. There are no prior studies for comparison
== END 2023-10-18 14:25 | disposition home or self-care (01) ==
LOC: ANHPFT 14:25
PROVIDERS: PCP Nurse Practitioner Family; Visit Provider Internal Medicine Cardiovascular Disease
DX: R06.02 Shortness of breath (principal); R91.8 Other nonspecific abnormal finding of lung field; R94.2 Abnormal results of pulmonary function studies
CPT/HCPCS: 94375; 94726; 94729

== ENCOUNTER 2023-10-31 10:38 | Outpatient (CLI) | payer MEDICARE, SELFPAY ==
[2023-10-31 11:26] LABS: Rheumatoid Factor < 12.0 IU/ML (<12)
[2023-11-03 13:37] LABS: ANCA Screen Negative (Negative)
[2023-11-04 10:01] LABS: Anti Cyclic Citrullinated Pept <16 Units (<20)
== END 2023-10-31 10:39 | disposition home or self-care (01) ==
LOC: ANHLAB 10:46
PROVIDERS: PCP Nurse Practitioner Family; Visit Provider Internal Medicine Pulmonary Disease
DX: J84.9 Interstitial pulmonary disease, unspecified (principal)
CPT/HCPCS: 36415; 86036; 86038; 86039; 86200; 86430

== ENCOUNTER 2023-10-31 13:52 | Outpatient (CLI) | payer MEDICARE, SELFPAY ==
[2023-10-31 14:55] LABS: Alanine Aminotransferase 15 U/L (14-59); Alkaline Phosphatase 56 U/L (46-116); Anion Gap 10 mmol/L (8-16); Aspartate Amino Transferase 25 U/L (15-37); Bilirubin,Total 0.7 mg/dL (0.00-1.00); Blood Urea Nitrogen 25 mg/dL (7-18); Calcium 9.8 mg/dL (8.5-10.1); Carbon Dioxide 32 mmol/L (21-32); Chloride 99 mmol/L (98-108); Estimated Glomerular Filt Rate 40; Glucose 148 mg/dL (70-99); Magnesium 1.3 mg/dL (1.8-2.4); Osmolality Calculated 299 mOsm/kg (285-295); Sodium 141 mmol/L (136-145)
== END 2023-10-31 13:53 | disposition home or self-care (01) ==
LOC: CHSLAB 13:55
PROVIDERS: PCP Nurse Practitioner Family; Visit Provider Nurse Practitioner Family
DX: E83.42 Hypomagnesemia (principal); E87.6 Hypokalemia
CPT/HCPCS: 36415; 80053; 83735

== ENCOUNTER 2023-11-15 13:37 | Outpatient (CLI) | payer MEDICARE, SELFPAY ==
[2023-11-15 14:38] LABS: Alanine Aminotransferase 17 U/L (14-59); Albumin Level 3.7 g/dL (3.4-5.0); Alkaline Phosphatase 56 U/L (46-116); Anion Gap 11 mmol/L (8-16); Aspartate Amino Transferase 22 U/L (15-37); Bilirubin,Total 0.7 mg/dL (0.00-1.00); Blood Urea Nitrogen 25 mg/dL (7-18); Calcium 10.2 mg/dL (8.5-10.1); Carbon Dioxide 30 mmol/L (21-32); Chloride 98 mmol/L (98-108); Estimated Glomerular Filt Rate 49; Glucose 124 mg/dL (70-99); Osmolality Calculated 293 mOsm/kg (285-295); Potassium 3.8 mmol/L (3.5-5.1); Sodium 139 mmol/L (136-145); Total Protein 7.8 g/dL (6.4-8.2)
[2023-11-19 16:09] LABS: Magnesium 1.7 mg/dL (1.8-2.4)
== END 2023-11-15 13:38 | disposition home or self-care (01) ==
LOC: CHSLAB 13:39
PROVIDERS: PCP Nurse Practitioner Family; Visit Provider Nurse Practitioner Family
DX: E83.42 Hypomagnesemia (principal)
CPT/HCPCS: 36415; 80053; 83735

== ENCOUNTER 2023-11-22 09:53 | Outpatient (CLI) | payer MEDICARE, SELFPAY ==
--- NOTE | ~2023-11-22 | XR_ITS ---
MODIFIED ESOPHAGRAM HISTORY: Dysphagia. TECHNIQUE: Modified barium esophagram was performed on 11/22/2023. Dr. Gomez administered fluoroscopy a nd performed the exam with speech pathologist. Patient was seated for lateral fluoroscopic imaging f or ingestion of thin liquids, pudding, solids and quantified amounts, followed by thin liquids in unc ontrolled amounts. This was recorded on tape. 2 fluoroscopic images were also recorded. The DAP for t his procedure was 2.923 Gycm2. The amount of fluoroscopy time used during this procedure was 3.4 priscilla brenden. FINDINGS: Instrumented C3-C5 anterior spinal fusion with anterior plate and screw fixation. Instrumented cotton classer aide ior spinal fusion with bilateral vertical ruthie and lateral mass screw fixation from C3-C6. Severe lowe r cervical spondylosis. Oral stage: Adequate function. Pharyngeal stage: Trace residue in the vallecula and piriform sinus. No laryngeal penetration or aspi ration. Cervical/esophageal stage: Cricopharyngeal dysfunction. IMPRESSION: Cricopharyngeal dysfunction. Please correlate with speech pathologist findings and speci fic feeding recommendations. Reviewed, dictated and finalized at location A. RANNUATION CLERK IMPRESSION: Cricopharyngeal dysfunction. Please correlate with speech patholog ist findings and specific feeding recommendations.
--- NOTE | 2023-11-22 12:39 | REHSTMBS ---
Assessment and note entered by Carmen Benavidez, PACKAGER OR PACKER AND WEIGHER Modified Barium Swallow Evaluation Diagnosis Dysphagia R13.10 Subjective Information Patient was referred for a MBS due to difficulty with swallowing post anterior cervical surgery in May of 2023. Patient has a history of esophageal strictures, hiatal hernia, peptic ulcers and natural esophageal banding. The patient has difficulty swallowing multiple times per day with various consistencies of solids and liquids. She has increased difficulty with tougher textured foods including; meats (hamburger), breads, cakes , raw vegetables, and chocolate. She reported that she will vomit occasionally from difficulty with foods. She reported that it feels as if there is something stuck in her throat causing the difficulty. Patient reported that she has had difficulty with her voice since the surgery and often speaks at a low volume with difficulty projecting. Feeding Type Recommended Oral Food Consistency Regular, Easy to Chew (7) Liquid Consistency Thin (0) Treatment Recommendations Effortful Swallow ST Clinical Summary Patient was referred for a MBS due to continued difficulty with swallowing post anterior cervical surgery in May of 2023. Since the surgery patient has been experiencing difficulty swallowing multiple times per day with a feeling of something stuck in her throat. She also reported that she has been having difficulty with her voice since the surgery. The patient was given trials of thin barium, puree barium mixture and solid trials with barium paste. Patient presented with minimal to trace stasis post deglutition in vallecula and pyriform sinuses post deglutition. No laryngeal penetration or aspiration was noted with all consistencies trialed. 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 Patient may benefit from potential dilation if applicable. Refer to ENT to further investigate treatment for cricopharyngeal dysfunction. Recommendation for skilled ST treatment to determine any other potential swallowing strategies to improve bolus transit and decrease difficulty with swallowing along with potential treatment of voice difficulties patient is experiencing.
== END 2023-11-22 09:54 | disposition home or self-care (01) ==
PROVIDERS: PCP Nurse Practitioner Family; Visit Provider Otolaryngology
DX: R13.10 Dysphagia, unspecified (principal)
CPT/HCPCS: 92611

== ENCOUNTER 2023-12-31 08:53 | Outpatient (CLI) | payer MEDICARE, SELFPAY ==
[2023-12-31 11:48] LABS: Cholesterol 176 mg/dL (0-200); HDL Direct 42 mg/dL (40-60); LDL Cholesterol Calculated 113 mg/dL (<130); Triglycerides 105 mg/dL (0-150)
== END 2023-12-31 08:54 | disposition home or self-care (01) ==
LOC: CHSLAB 08:55
PROVIDERS: PCP Nurse Practitioner Family; Visit Provider Internal Medicine Cardiovascular Disease
DX: E11.69 Type 2 diabetes mellitus with other specified complication (principal); I50.22 Chronic systolic (congestive) heart failure; Z78.9 Other specified health status
CPT/HCPCS: 36415; 80061

== ENCOUNTER 2024-02-29 10:50 | Outpatient (CLI) | payer MEDICARE, SELFPAY ==
--- NOTE | ~2024-02-29 | CT_ITS ---
EXAMINATION:CT chest high resolution wo co DATE: 02/29/2024 11:05 INDICATION: Interstitial pulmonary disease, unspecified. TECHNIQUE: Computed tomography (CT) of the chest was performed without intravenous contrast. Automate d exposure control and iterative reconstruction technique were employed. The dose-length product (DLP ) was 138.40 mGy-cm. COMPARISON: Chest CT 10/02/2023, 02/14/17 FINDINGS: There is widespread peripheral septal thickening in the lungs. There is mild bronchiectasis in the inferior lungs. There are small areas of peripheral honeycombing in right lower lobe. There a re scattered nodules in the lungs measuring up to 4 mm, likely benign. No pleural effusion. There is a chronic 2.4 cm nodule in right thyroid lobe, likely benign. There is left ventricular enlargement o f the heart. There are coronary artery calcifications. No pericardial effusion. There is a left chest wall pacer with leads in the right atrium and right ventricle. There is ectasia of ascending aorta m easuring 4.2 cm. There are changes of cholecystectomy. There is a 1.3 cm cyst in right kidney. There are changes of partial right nephrectomy. There is severe thoracic spondylosis. There are changes of anterior fusion procedure in cervical spine. There are changes of posterior fusion procedure in cervi enrrique thoracic spine. IMPRESSION: 1. Chronic interstitial lung disease in a pattern of usual interstitial pneumonia (UIP). Reviewed, dictated and finalized at location A. IMPRESSION: 1. Chronic interstitial lung disease in a pattern of usual interstitial pneumon ia (UIP).
== END 2024-02-29 10:51 | disposition home or self-care (01) ==
LOC: ANHIMG 10:50
PROVIDERS: PCP Nurse Practitioner Family; Visit Provider Internal Medicine Pulmonary Disease
DX: J84.9 Interstitial pulmonary disease, unspecified (principal)
CPT/HCPCS: 71250

== ENCOUNTER 2024-03-20 16:00 | Outpatient (RCR) | payer MEDICARE, SELFPAY ==
--- NOTE | 2024-03-05 17:53 | BUSTOPEVAL1 ---
Assessment and note entered by Carmen Benavidez, TRACK LAYING MACHINE OPERATOR Evaluation Information Assessment Status Evaluation Diagnosis Dysphagia R13.19 Subjective Information Patient was referred for a speech therapy evaluation through [facility] due to difficulty with swallowing post anterior cervical surgery in May of 2023. Patient has a history of esophageal strictures, hiatal hernia, peptic ulcers and natural esophageal banding. The patient has difficulty swallowing multiple times per day with various consistencies of solids and liquids resulting in vomiting 1-2 times per day. She has increased difficulty with tougher textured foods including; meats (hamburger), breads, cakes, pudding, bananas , peanut butter. She reported that it feels as if there is something stuck in her throat causing the difficulty. Patient reported that she has had difficulty with her voice since the surgery and often speaks at a low volume with difficulty projecting. TRACK LAYING MACHINE OPERATOR a completed a modified barium swallow study with results indicating no penetration or aspiration. Patient presented with minimal to trace stasis post deglutition in vallecula and pyriform sinuses post deglutition. 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 Recommendation was made for potential dilation or Botox but patient reported that she and the doctor felt she did not need to undergo another procedure at this time and would like to pursue skilled outpatient ST to improve swallowing function. Reported Pain Level Pain Score 0: Self Report Assessment ST Clinical Summary Patient was referred for a skilled ST evaluation due to continued difficulty with swallowing post anterior cervical surgery in May of 2023. Since the surgery patient has been experiencing difficulty swallowing multiple times per day with a feeling of something stuck in her throat. She indicated that depending upon the food she is eating she may vomit up to 1-2 times per day. The patient had a MBS 11-22-23 with the results below: The patient was given trials of thin barium, puree barium mixture and solid trials with barium paste . Patient presented with minimal to trace stasis post deglutition i
--- NOTE | 2024-03-20 16:54 | BUSTOPDC ---
Assessment and note entered by Carmen Benavidez BUILDING ENERGY RETROFIT TECHNICIAN Evaluation Information Assessment Status Discharge Diagnosis Dysphagia R13.19 Subjective Information Patient was referred for a speech therapy evaluation through [facility] due to difficulty with swallowing post anterior cervical surgery in May of 2023. Patient has a history of esophageal strictures, hiatal hernia, peptic ulcers and natural esophageal banding. The patient had difficulty swallowing multiple times per day with various consistencies of solids and liquids resulting in vomiting 1-2 times per day. BUILDING ENERGY RETROFIT TECHNICIAN a completed a modified barium swallow study with results indicating no penetration or aspiration. Patient presented with minimal to trace stasis post deglutition in vallecula and pyriform sinuses post deglutition. 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 Recommendation was made for potential dilation or Botox but patient reported that she and the doctor felt she did not need to undergo another procedure at this time and would like to pursue skilled outpatient ST to improve swallowing function. Patient has completed a total of [address] treatment sessions targeting compensatory techniques, Cira exercise, Shaker exercise and Wade maneuver to improve cricopharyngeal function. Patient currently has not experienced any emesis for over 3+ weeks and is tolerating all foods/fluids with no difficulty. Reported Pain Level Pain Score 3: Self Report Pain Score 5: Self Report Pain Score 0: Self Report Additional Pain Score Comments Patient is having sciatic pain is seeing a chiropractor 3x per week. Assessment ST Clinical Summary Patient was referred for a skilled ST evaluation due to continued difficulty with swallowing post anterior cervical surgery in May of 2023. Since the surgery patient has been experiencing difficulty swallowing multiple times per day with a feeling of something stuck in her throat. She indicated that depending upon the food she is eating she may vomit up to 1-2 times per day. The patient had a MBS 11-22-23 with the results below: The patient was given trials of thin barium, puree barium mixture and
== END 2024-03-20 17:17 | disposition home or self-care (01) ==
LOC: CHSST 16:00
PROVIDERS: Visit Provider Otolaryngology
DX: R13.19 Other dysphagia (principal)
CPT/HCPCS: 92526; 92610

== ENCOUNTER 2024-04-09 12:02 | Outpatient (CLI) | payer MEDICARE, SELFPAY ==
--- NOTE | 2024-04-09 14:30 | NEURO_ITS ---
Impression: # Complains of upper extremity weakness for over 20 years that came on suddenly. # Mild Carpal Tunnel Syndrome, right more than left. # Left ulnar neuropathy around the elbow. # Needle/EMG exam revealed no active fibs but decreased motor unit potentials In all muscles tested, left more than right. # Clinical correlation recommended. Question of old brachioplexopathy/or Parsonage-Acosta syndrome. Nerve Conduction Studies Anti Sensory Summary Table Stim Site NR Peak (ms) P-T Amp (?V) Site1 Site2 Delta-P (ms) Dist (cm) Job (m/s) Left Median Anti Sensory (2-3nd Digit) Wrist 3.8 51.2 Wrist 2-3nd Digit 3.8 14.0 37 Wrist 3.6 26.5 Wrist 2-3nd Digit 3.8 14.0 37 Right Median Anti Sensory (2-3nd Digit) Wrist 3.8 38.4 Wrist 2-3nd Digit 3.8 14.0 37 Wrist 3.7 42.3 Wrist 2-3nd Digit 3.8 14.0 37 Left Radial Anti Sensory (Base 1st Digit) Wrist 2.6 20.8 Wrist Base 1st Digit 2.6 0.0 Right Radial Anti Sensory (Base 1st Digit) Wrist 2.3 16.0 Wrist Base 1st Digit 2.3 0.0 Left Ulnar Anti Sensory (5th Digit) Wrist 3.4 20.0 Wrist 5th Digit 3.4 14.0 41 Right Ulnar Anti Sensory (5th Digit) Wrist 2.8 45.5 Wrist 5th Digit 2.8 14.0 50 Motor Summary Table Stim Site NR Onset (ms) O-P Amp (mV) Site1 Site2 Delta-0 (ms) Dist (cm) Job (m/s) Left Median Motor (Abd Poll Brev) Wrist 4.1 5.8 Elbow Wrist 5.8 29.0 50 Elbow 9.9 6.3 Right Median Motor (Abd Poll Brev) Wrist 4.5 4.3 Elbow Wrist 4.6 27.0 59 Elbow 9.1 3.6 Left Radial Motor (Ext Ind Prop) 8cm 4.8 1.3 Right Radial Motor (Ext Ind Prop) 8cm 4.1 1.5 Up Arm 4.1 1.8 Left Ulnar Motor (Abd Dig Minimi) Wrist 3.1 2.4 A Elbow Wrist 6.4 25.0 39 A Elbow 9.5 2.9 B Elbow Wrist 4.9 24.0 49 B Elbow 8.0 3.5 Right Ulnar Motor (Abd Dig Minimi) Wrist 2.7 4.8 A Elbow Wrist 4.7 28.0 60 A Elbow 7.4 2.4 F Wave Studies NR F-Lat (ms) L-R F-Lat (ms) Left Median (Mrkrs) (Abd Poll Brev) 29.99 1.70 Right Median (Mrkrs) (Abd Poll Brev) 28.30 1.70 Left Ulnar (Mrkrs) (Abd Dig Min) 29.40 0.62 Right Ulnar (Mrkrs) (Abd Dig Min) 28.78 0.62 EMG Side Muscle Nerve Root Ins Act Fibs Amp Dur Recrt Comment Right 1stDorInt Ulnar C8-T1 Nml Nml Nml >12ms +1 Right Ext Indicis Radial (Post Int) C7-8 Nml Nml Nml >12ms +2 Right Ext Digitorum Radial (Post Int) C7-8 Nml Nml Nml >12ms +2 Right BrachioRad Radial C5-6 Nml Nml Nml >12ms +1 Right PronatorTeres Median C6-7 Nml Nml Nml >12ms +1 Right Abd Poll Brev Median C8-T1 Nml Nml Nml >12ms +1 Right ABD Dig Min Ulnar C8-T1 Nml Nml Nml >12ms +1 Left 1stDorInt Ulnar C8-T1 Nml Nml Nml >12ms +1 Left Ext Indicis Radial (Post Int) C7-8 Nml Nml Nml >12ms +2 Left Ext Digitorum Radial (Post Int) C7-8 Nml Nml Nml >12ms +2 Left BrachioRad Radial C5-6 Nml Nml Nml >12ms +1 Left PronatorTeres Median C6-7 Nml Nml Nml >12ms +1 Left Abd Poll Brev Median C8-T1 Nml Nml Nml >12ms +1 Left ABD Dig Min Ulnar C8-T1 Nml Nml Nml >12ms +1 Right Biceps Musculocut C5-6 Nml Nml Nml >12ms +1 Right Triceps Radial C6-7-8 Nml Nml Nml >12ms +2 Right Deltoid Axillary C5-6 Nml Nml Nml >12ms +1 Left Deltoid Axillary C5-6 Nml Nml Nml >12ms +1 Left Biceps Musculocut C5-6 Nml Nml Nml >12ms +1 Left Triceps Radial C6-7-8 Nml Nml
== END 2024-04-09 12:03 | disposition home or self-care (01) ==
LOC: ANHNEURO 12:05
PROVIDERS: PCP Nurse Practitioner Family; Visit Provider Plastic Surgery
DX: G56.32 Lesion of radial nerve, left upper limb (principal); G56.03 Carpal tunnel syndrome, bilateral upper limbs
CPT/HCPCS: 95886; 95912

== ENCOUNTER 2024-05-30 11:15 | Outpatient (RCR) | payer MEDICARE, SELFPAY ==
--- NOTE | 2024-04-04 13:54 | OTOPEVAL1 ---
Assessment and note entered by Elmer Menjivar, MITCHEL/Makenzie, CHT Evaluation Information Assessment Status Evaluation Diagnosis Carpal tunnel syndrome, bilateral UE; lesion of radial nerve, left UE Subjective Information Patient has a complex history. She reports she began to experience lack of MCP extension on the left hand sometime between [id number]. She has underwent 2 cervical surgeries, bilateral cubital tunnel release, right carpal tunnel release. She reports she had to give up all of her hobbies due to the loss of function in her hands. She reports constant tingling in the ulnar 3 digits bilaterally. Reported Pain Level Pain Score 0: Self Report Assessment OT Clinical Summary Patient referred to OT with dx of bilateral carpal tunnel syndrome and lesion of left radial nerve. She presents with no active MCP extension of digits II-V on the left hand. Passive ROM is WFL. She has maintained her flexibility very well. She has intact and strong wrist extension on this side . Discussed splint options today: ordering a Benik orthosis or dynamic extension splint with bands. It was decided to go with the Benik splint as it will be more durable for long-term wear. Took measurements for this today. Continued skilled OT indicated for splint fitting, therapeutic exercise , and HEP instruction. Plan of Care Interventions Therapeutic Exercise,Manual Therapy,Therapeutic Activities,Check Out for Orthotic/Pr,Paraffin OT Services Indicated Yes Treatment Frequency and 0-1x/week for 4 visits - Patient to undergo Duration further testing (nerve conduction) and MD follow up. Therapy to follow up after. These treatments will address the objective and functional deficits as defined above. The patient will be advanced safely and appropriately in order for the patient to progress towards his/her prior level of function. Additional exercises will be introduced and as well as a comprehensive home exercise program upon discharge, if needed, ?to ensure carryover of functional gains achieved in the clinic. This treatment plan has been reviewed and agreement upon by the patient.
--- NOTE | 2024-05-30 11:58 | OTOPDC ---
Assessment and note entered by Elmer Menjivar, OTR/Makenzie, XOCHITLT OT D/C Summary 05/30/24 Diagnosis Carpal tunnel syndrome, bilateral UE; lesion of radial nerve, left UE Subjective Information Patient has a complex history. She reports she began to experience lack of MCP extension on the left hand sometime between [id number]. She has underwent 2 cervical surgeries, bilateral cubital tunnel release, right carpal tunnel release. She reports she had to give up all of her hobbies due to the loss of function in her hands. She reports constant tingling in the ulnar 3 digits bilaterally. A month ago we fitted her for a Benik radial nerve palsy brace, which holds the MCPs in extension. She reports she is finally able to use her hand for tasks again. She reports being able to extend the fingers to grasp and release objects. Reported Pain Level Pain Score 0: Self Report Assessment OT Clinical Summary Patient referred to OT with dx of bilateral carpal tunnel syndrome and lesion of left radial nerve. She presents with no active MCP extension of digits II-V on the left hand. Passive ROM is WFL. She has maintained her flexibility very well. She has intact and strong wrist extension on this side . She has been wearing a Benik orthosis for MCP extension and has had excellent results with this, providing her with improved function for ADLs. Issued HEP for intrinsic strengthening. She is doing very well with all of this. Plan of Care OT Services Indicated No
== END 2024-05-30 13:57 | disposition home or self-care (01) ==
LOC: ANHOT 11:15
PROVIDERS: Visit Provider Plastic Surgery
DX: G56.03 Carpal tunnel syndrome, bilateral upper limbs (principal); G56.32 Lesion of radial nerve, left upper limb
CPT/HCPCS: 97110; 97165; 97760; L3807

== ENCOUNTER 2024-07-23 11:42 | Outpatient (CLI) | payer MEDICARE, SELFPAY ==
[2024-07-23 11:55] LABS: Basophils Absolute Auto 0.08 K/mm3 (0.00-0.10); Basophils Percent Auto 0.5 % (0.0-1.0); Eosinophils Absolute Auto 0.26 K/mm3 (0.02-0.50); Eosinophils Percent Auto 1.7 % (1.0-6.0); Hematocrit 37.2 % (35.0-42.0); Hemoglobin 12.4 g/dL (11.7-13.8); Immature Granulocyte Absolute 0.07 K/mm3 (0.00-0.00); Immature Granulocyte Percent A 0.5 % (0.0-0.0); Lymphocytes Absolute Auto 2.96 K/mm3 (1.10-4.50); Lymphocytes Percent Auto 19.6 % (18.0-42.0); Mean Corpuscular HGB Conc 33.3 g/dL (32-36); Mean Corpuscular Hemoglobin 30.1 pg (27.0-31.0); Mean Corpuscular Volume 90.3 fL (78.0-102.0); Mean Platelet Volume 11.5 fl (9.2-11.8); Monocytes Absolute Auto 1.23 K/mm3 (0.10-0.90); Monocytes Percent Auto 8.1 % (2.0-11.0); Neutrophils Absolute Auto 10.54 K/mm3 (1.70-7.20); Neutrophils Percent Auto 69.6 % (50.0-70.0); Platelet Count Result 266 K/mm3 (150-420); Red Blood Count 4.12 M/mm3 (4.20-5.40); Red Cell Distribution Width 13.6 % (11.6-14.4); White Blood Count 15.1 K/mm3 (4.8-10.8)
[2024-07-23 14:05] LABS: Alanine Aminotransferase 14 U/L (14-59); Albumin Level 3.6 g/dL (3.4-5.0); Alkaline Phosphatase 83 U/L (46-116); Anion Gap 7 mmol/L (4-12); Aspartate Amino Transferase 11 U/L (15-37); Bilirubin,Total 0.9 mg/dL (0.00-1.00); Blood Urea Nitrogen 20 mg/dL (7-18); Calcium 9.9 mg/dL (8.5-10.1); Carbon Dioxide 31 mmol/L (21-32); Chloride 100 mmol/L (98-108); Estimated Glomerular Filt Rate 41; Free T4 Free Thyroxine 1.08 ng/dL (0.76-1.46); Glucose 117 mg/dL (70-99); Magnesium 1.3 mg/dL (1.8-2.4); Osmolality Calculated 289 mOsm/kg (285-295); Potassium 4.2 mmol/L (3.5-5.1); Sodium 138 mmol/L (136-145); Thyroid Stimulating Hormone 1.23 uIU/mL (0.36-3.74); Total Protein 7.9 g/dL (6.4-8.2)
[2024-07-23 16:36] LABS: Appearance Urine Sl Cloudy (Clear); Bilirubin Urine Negative (Negative); Blood Urine Negative (Negative); Glucose Urine UA Trace (Negative); Ketones Urine Negative (Negative); Leukocyte Esterase Ur 3+ LEU/UL (Negative); Nitrate Urine Positive (Negative); Protein Urine 1+ (Negative)
[2024-07-23 17:01] LABS: Add Urine Microscopic? YES; Bacteria Urine 2+ /hpf; Color Urine Dark Orange (Yellow); RBC Urine None seen /hpf (0-2); Renal Epithelial Cells Urine Few /hpf; Squamous Epithelial Cell Urine Few /hpf (Few); WBC Urine 21-30 /hpf (0-3)
[2024-07-24 14:15] LABS: Ferritin 328 ng/mL (8-252); Iron 35 ug/dL (50-170); Percent Iron Saturation 17 % (12-57); Vitamin B12 881 pg/mL (193-986)
[2024-07-25 05:28] LABS: Vitamin D 25 Hydroxy 39 ng/mL (30-100)
== END 2024-07-23 11:43 | disposition home or self-care (01) ==
PROVIDERS: PCP Nurse Practitioner Family; Visit Provider Nurse Practitioner Family
DX: I10 Essential (primary) hypertension (principal); E11.9 Type 2 diabetes mellitus without complications; E83.42 Hypomagnesemia; R53.83 Other fatigue; Z79.899 Other long term (current) drug therapy; E04.1 Nontoxic single thyroid nodule; E53.8 Deficiency of other specified B group vitamins; I44.2 Atrioventricular block, complete; Z87.898 Personal history of other specified conditions
CPT/HCPCS: 36415; 80053; 81001; 82306; 82607; 82728; 83036; 83540; 83550; 83735; 84439; 84443; 85025; 87086; 87088

== ENCOUNTER 2025-01-05 14:30 | Outpatient (CLI) | payer MEDICARE, SELFPAY ==
--- NOTE | ~2025-01-05 | XR_ITS ---
XR knee RT 3V 01/05/2025 14:51 Indication: Right knee pain Procedure: 3 views right knee Comparison: 12/15/2009 Findings: No fracture, subluxation or dislocation. There is mild osteoarthritis of the right knee. No significant joint effusion. Impression: 1: Mild tricompartment osteoarthritis. Reviewed, dictated and finalized at location A. Impression: 1: Mild tricompartment osteoarthritis.
--- OUTSIDE RECORDS SUMMARY | 2025-01-05 15:58 | XMS_ITS | Clinical Summary ---
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 Gender Identity Not on file Sexual Orientation Not on file Plan of Treatment Health Maintenance Due Date Last Done Comments Hepatitis C 1963 DTaP, Tdap and Td Vaccines ( 1 - Tdap) 1965 Zoster Vaccines (1 of 2) 1996 Dexa Scan (General) 2011 Pneumococcal Vaccine: 65+ Ye ars (1 of 1 - PCV) 2011 RSV Immunization or 60+ Years (1 - 1-dose 75+ series) 2021 COVID-19 Vaccine (2023-2 5 season) 2024 Influenza Adult (#1) 2024 Meningococcal B Vaccine Aged Out No l onger eligible based on patient's age to complete this topic Meningococcal Vaccine Aged Out No sean robert eligible based on patient's age to complete this topic RSV Immunizations Under 20 Months Aged Out No longer eligible based on patient's age to complete this topic
--- OUTSIDE RECORDS SUMMARY | 2025-01-05 15:58 | XMS_ITS | Clinical Summary ---
Author Organization [facility] Address [address] [place] [address] Care Team Providers Care Cracker Off Name Role Phone KandyMauricio thurston Edmonds Primary Care Provider Torin Prescott MD Unavailable Allergies Active Allergy Reactions Criticality Noted Date Comments Adhesive Rash Medium 08/04/2024 Amoxicillin Shortness of breath High 08/25/2024 Codeine Other (See comments) Low 06/28/2015 Severe stomach ache, Severe stomach ache, Severe stomach ache Egg Other (See comments) Low Raw eggs. Confirmed via allergy test Etodolac Other (See comments) Low Unknown per pt Mold Shortness of breath High 07/28/2014 Morphine Other (See comments) Medium 04/14/2015 Serve pain in the pit of her stomach, Serve pain in the pit of her stomach, Serve pain in the pit of her stomach Prednisone Agitation Low 08/25/2024 Seldane-D Hallucinations Medium Jzjsuqz-Rvs-Pbh Reductase Inhibitors Other (See comments) Low 08/25/2024 Aches and pains all over Sulfa Unknown 08/25/2024 Trimethoprim Unknown 08/25/2024 Medications aspirin 81 mg tabletIndications: prevention of thrombosis Take one by mouth one time per day 0 0 08/17/200 9 Active oxybutynin (DITROPAN) 5 mg tabletIndications: Bladder Hyperactivity,Incr eased Urinary Frequency,Urinary Urge Incontinence,Urina ry Urgency Take 1 tablet (5 mg total) by mouth 2 (two) times a day 4 7 Active metFORMIN (GLUCOPHAGE) 500 mg tabletIndications: type 2 diabetes mellitus Take 1 tablet (500 mg total) by mouth 2 (two) times a day with meals 0 Active furosemide (LASIX) 20 mg tabletIndications: Edema,hypertension Take 1 tablet (20 mg total) by mouth skirt maker before breakfast 4 Active spironolactone (ALDACTONE) 25 mg tabletIndications: hypertension Take 1 tablet (25 mg total) by mouth skirt maker before breakfast 4 Active allopurinoL (ZYLOPRIM) 300 mg tabletIndications: prevention of acute gout attack Take 1 tablet (300 mg total) by mouth skirt maker before breakfast 4 Active carvediloL (Coreg) 25 mg tabletIndications: Nonischemic cardiomyopathy (HCC) Take 0.5 tablets (12.5 mg total) by mouth 2 (two) times a day with meals 4 Active inclisiran sodium (LEQVIO SUBQ)Indications:c holesterol Inject under the skin every 6 (six) months Active losartan (COZAAR) 25 mg tablet TAKE ONE TABLET BY MOUTH DAILY 90 tablet 4 Active lutein 20 mg capsuleIndications :supplement Take 1 capsule (20 mg total) by mouth 2 (two) times a week 4 Active Active Problems Problem Noted Date Diagnosed Date Hyperlipidemia 08/25/2024 Assessment & Plan (08/25/2024 9:08 PM BAG TESTER): On Leqvio SQ outpatient NICM (nonischemic cardiomyopathy) 07/11/2024 Assessment & Plan (08/26/2024 2:49 PM BAG TESTER): Patient was referred for ACOUSTIC INTELLIGENCE SPECIALIST-D upgrade after decline in EF 40-45%-->25-30% despite GDMT as tolerated. Declined ICD in clinic. - Patient complaining of jerking similar to her heart beat after device interrogation and 2v CXR. - touched base with [employer] who explained a lead must also be affecting a nerve, leading to spasms. This was addressed and issues resolved - CXR without PTX or effusion, clr - Device interrogation completed without concern for issues with device function - Tele AV paced - no antibiotics at discharge. -Continue home coreg, losartan, aldactone, lasix; Entresto/Jardiance were cost prohibitive per notes Complete heart block 07/06/2024 Assessment & Plan (08/25/2024 9:06 PM BAG TESTER): s/p medtronic dual-chamber PM 05/20/2003 and generator change 06/2020 with consistent >98% v-pacing burden -Now s/p ACOUSTIC INTELLIGENCE SPECIALIST-D upgrade Visit for wound check 07/02/2020 SOB (shortness of breath) 07/01/2020 Positive cardiac stress test 07/01/2020 Positive D dimer 07/01/2020 Type 2 diabetes mellitus, wi thout long-term current use of insulin 07/01/2020 Assessment & Plan (08/25/2024 9:05 PM BAG TESTER): -Resume home metformin on discharge Pulmonary nodules 07/01/2020 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 Dx; NICM, CHF, CHB. DOI 08/25/2024-Estrada. Chronic A&V leads 2002. Alhaji. Carelink remote. Primary hypertension 07/28/2014 Assessment & Plan (08/25/2024 9:06 PM BAG TESTER): -Continue home coreg, losartan, lasix, aldactone Encounters Date Type Department Care Team Description 12/04/2024 Orders Only [facility] Cardiology [address] [facility] Office Building [address] [place] [id number] Samson Dorado MD 12/04/2024 Telephone [facility] Cardiology [address] [facility] [address]th [place] [address] [place] [address] Samson Dorado MD 11/04/2024 Telephone [facility] Cardiology [facility] [facility] [address]th [place] [address] [place] [address] Samson Dorado MD 10/21/2024 Telephone [facility] Cardiology [address] [place] [address] Reva Olsen NP from Last 3 Months Surgical History Surgery Date Site/Laterality Comments APPENDECTOMY Appendectomy CARDIAC PACEMAKER PLACEMENT 10/08/2002 - 10/07/2003 INSERT / REPLACE / REMOVE PACEMAKER 10/08/2019 - 10/07/2020 replacement A-V CARDIAC PACEMAKER INSERTION unknown date replacement ANKLE SURGERY Right unknown dates x2 Medical History Medical History Date Comments Hx Other Medical complete heart block status post Medtronic DDDR Hypertension Hypertension Hx Other Medical Laparoscopic ly sis of adhesions, right robot-marcy Diabetes mellitus (HCC) Positive cardiac stress test Family History Medical History Relation Name Comments Heart attack Father Myocardial infa rction; Cause of : Myocardial infarction Other Mother Unknown; Cause of : Unknown Anesthesia problems Neg Hx Relation Name Status Comments Father (Age 72) Mother (Age 81) Social History Tobacco Use Types Packs/Day Years Used Date Smoking Tobacco: Former Cigarettes Q uit: 10/08/2000 Smokeless Tobacco: Never Tobacco Cessation:Counseling Given: Not Answered Alcohol Use Standard Drinks/Week Comments No 0 (1 standard drink = 0.6 oz pur e alcohol) AUDIT-C Answer Date Recorded Q1: How often do you have a drink containing alcohol? Never 08/25/2024 Q2: How many drinks containi ng alcohol do you have on a typical day when you are drinking? Patient does not drink Q3: How often do you have si x or more drinks on one occasion? Never 08/25/2024 Personal Safety Answer Date Recorded Have you ever been in or are you currently in a harmful physical or emotional relationship or is someone making you feel afraid or unsafe? Denies 08/25/2024 Comments No Sex and Gender Information Value Date Recorded Sex Assigned at Not on file Legal Sex Female 9:24 AM BAG TESTER Gender Identity Not on file Sexual Orientation Not on file Obstetrics History Last Filed Vital Signs Vital Sign Reading Time Taken Comments Blood Pressure 95/55 09/08/2024 12:24 PM BAG TESTER Pulse 97 09/08/2024 12:24 PM BAG TESTER Temperature 37 C (98.6 F) 08/26/2024 9:10 AM BAG TESTER Respiratory Rate 16 08/26/2024 9:10 AM BAG TESTER Oxygen Saturation 96% 09/08/2024 12:24 PM BAG TESTER Inhaled Oxygen Concentration - - Weight 58.6 kg (129 lb 3.2 oz) 09/08/2024 12:24 PM BAG TESTER Height 157.5 cm (5' 2 ) 09/08/2024 12:24 PM BAG TESTER Body Mass Index 23.63 09/08/2024 12:24 PM BAG TESTER Plan of Treatment Health Maintenance Due Date Last Done Comments Albumin Creatinine Ratio, Urine 1945 Depression Screening 1945 Hepatitis C Screening 1946 Osteoporosis Screening-Bone Density Scan 1946 Dilated Eye Exam 1946 Foot Exam 1946 DTaP/Tdap/Td Vaccine (1 - Tdap) 1957 Hepatitis B Screening 1964 Pneumococcal vaccine 65+ (1 of 2 - PCV) 1965 Zoster Vaccine (1 of 2) 1996 Well Visit 65+ 2011 Hemoglobin A1C 12/29/2020 07/01/2020 Influenza Vaccine (#1) 2024 10/08/2017 Lipid Panel 05/01/2025 05/01/2024, 03/2 02/2024, 05/19/2022, Additional history exists eGFR 08/25/2025 08/25/2024, 07/01/2020 Fall Risk Assessment 08/26/2025 08/26/2024 Medical Devices Implanted Type Area Manager Council Device Identifier Shelf Expiration Date Model / Serial / Lot Medtronic Inc Attain Stability Quad Mri Surescan Active Fixation Lv Lead 88cm [id number] - [id number] - [id number] Implanted:Qty: 1 on 08/25/2024 by Samosn Dorado MD at [facility] Lead Medtronic Inc 04/20/2025 [id number] / [id number] / Pacemaker Implanted:Qty: 3 Pacemaker Left: Chest Wall Medtronic Description:2019 Pacemaker-05/20 Implanted:05/08 (Quantity not on file) Pacemaker Left: Chest Medtronic CHB ADAPTA [id number] / [id number] / CHRONIC LEADS 09/10/03 Medtronic Inc Solara Mri Surescan Bluetooth 46.5x59mm Connector Hole Radiopaque [id number] - [id number] - [id number] Implanted:Qty: 1 on 08/25/2024 by Samson Droado MD at [facility] Pacemaker Medtronic Inc 09/20/2025 [id number] / [id number] / Procedures Procedure Name Priority Date/Time Associated Diagnosis Comments DEVICE CHECK - REMOTE Routine 12/04/2024 2:12 AM BAG TESTER EGFR Routine 08/25/2024 3:15 PM BAG TESTER POCT LIPID PANEL Routine 05/01/2024 1:11 PM CDT Hyperlipidemia, unspecified hyperlipidemia type Coronary artery disease involving [place] coronary artery of [place] heart without angina pectoris HEMOGLOBIN A1C Routine 07/01/2020 8:56 AM CDT from Last 3 Months or Most Recently Relevant to Health Maintenance Results * DEVICE CHECK - REMOTE (12/04/2024 2:12 AM BAG TESTER) Anatomical Region Laterality Modality Other 12/04/2024 2:12 AM BAG TESTER Narrative 01/02/2025 4:38 PM CDT Interpretation Summary: Battery and Leads (BL) Normal parameters noted on battery and lead(s) --- 9.8 yrs remaining longevity. Lead impedance, threshold, and RA sensing trends stable and appropriate. No short V-V intervals. Presenting Rhythm (KY) Atrial Sensing-BiVentricular Pacing (-BiVP) --- /BVP 66 to 68 bpm. Arrhythmic events (AE) No new arrhythmic events in monitoring period --- Since 09/08/24: No AHR or VHR episodes. Miscellaneous Observations (MISC) Pacing dependence in the Ventricle Transmission Information (TI) Device Summary Report Follow Up (FU) Patient's primary treating physician will be apprised of findings Procedure Note Samson Dorado MD - 01/02/2025 Interpretation Summary: Battery and Leads (BL) Normal parameters noted on battery and lead(s) --- 9.8 yrs remaininglongevity. Lead impedance, threshold, and RA sensing trends stable andappropriate. No short V-V intervals. Presenting Rhythm (KY) Atrial Sensing-BiVentricular Pacing (-BiVP) --- /BVP 66 to 68 bpm. Arrhythmic events (AE) No new arrhythmic events in monitoring period --- Since 09/08/24: No AHRor VHR episodes. Miscellaneous Observations (MISC) Pacing dependence in the Ventricle Transmission Information (TI) Device Summary Report Follow Up (FU) Patient's primary treating physician will be apprised of findings us Samson Dorado MD [facility] PRO CEDURES Final Result * (ABNORMAL) eGFR (08/25/2024 3:15 PM BAG TESTER) eGFR 56(L) >=60 mL/min/1. 73 m2 Comment: Interpretive Data Reference Interval Normal >/= 90 mL/min/1.73m2 Mildly decreased* 60 - 89 mL/min/1.73m2 Mildly to moderately decreased 45 - 59 mL/min/1.73m2 Moderately to severely decreased 30 - 44 mL/min/1.73m2 Severely decreased 15 - 29 mL/min/1.73m2 Kidney Failure < 15 mL/min/1.73m2 *Relative to young adult level Estimated glomerular filtration rate is determined by the 2020 CKD-EPI equation recommended by the National Kidney Foundation (A Unifying Approach to GFR Estimation: Recommendations of the NKF-ASK Task Force on Reassessing the Inclusion of Race in Diagnosing Kidney Disease, JASN 202). The CKD-EPI equation should not be used for patients with unstable renal function and has not been validated in children and those over 70. Current interpretive data was last reviewed 2021. Blood 08/25/2024 3:15 PM BAG TESTER 08/25/2024 3:26 PM BAG TESTER us Samson Dorado MD LAB BLOOD ORDERABLES Fi nal Result [facility] Department [place] [address] * POCT lipid panel (05/01/2024 1:11 PM CDT) Cholesterol, POC 108 mg/dL Comment:GLU = 133 HDL, POC 33 mg/dL Triglycerides, POC 79 mg/dL LDL Cholesterol POC 59 mg/dL Chol/HDL Ratio, POC 1.8 Non-HDL Cholesterol, POC 75 mg/dL Cholesterol Total, POC 108 mg/dL Capillary blood 05/01/2024 1 :11 PM CDT Torin Prescott MD POINT OF CARE TEST ORDERABLES Fi nal Result * (ABNORMAL) Hemoglobin A1c (07/01/2020 8:56 AM CDT) Hgb A1C 7.2(H) 4.0 - 5.6 % [facility] Estimated Average Glucose 160 mg/dL [facility]G Comment: The ADA recommends reporting an estimated Average Glucose (eAG) with all Hemoglobin A1c results using the equation derived from a study of 507 normal and diabetic adults. Minority populations were underrepresented and children were not included. (Diabetes Care 31:2901-4077, 2008). The eAG is not equivalent to a fasting glucose. Blood specimen (specimen) 07/01/2020 8:56 AM CDT 07/01/2020 8:59 AM CDT Richard Varela MD LAB BLOOD ORDERABLES F inal Result [facility] [address] Department [place] [address] from Last 3 Months or Most Recently Relevant to Health Maintenance [place] [address] MEDICARE RAILROAD [employer] MEDICARE SUPPLEMENT MEDICARE RAILROAD [facility] MEDICARE SUPPLEMENT Advance Directives For more information, please contact: [phone] Documents on File Type Date Recorded Patient Personnel Research Scientist Expl anation ADVANCE DIRECTIVE 08/29/2024 12:42 AM POW ER OF AQUATIC SCIENTIST-FINANCIAL * Full Code (Latest Code Status on File) Date Activated Date Inactivated Comments 08/25/2024 8:33 PM 08/26/2024 7:29 PM * Full Code Date Activated Date Inactivated Comments 07/01/2020 2:32 AM 07/01/2020 6:14 PM Care Teams Cracker Off Relationship Specialty Start Date End Date Mauricio Shirley DO [address] [place] [address] PCP - General Family Medicine 06/09/20 Torin Prescott MD [address] [address] Consulting Physician Cardiology 07/01/20
--- OUTSIDE RECORDS SUMMARY | 2025-01-05 15:58 | XMS_ITS | Encounter Summary ---
Author Organization [facility] Address [address] [facility] [address] [place] [address] Care Team Providers Care Jalousies Installer Name Role Phone Jewel Edmond MD Primary Care Provider [phone] Mauricio Shirley DO Primary Care Provider Torin Prescott MD Unavailable Encounter Details Date Type Department Care Team (Late st Contact Info) Description 02/15/2017 Orders Only [facility] Provider, MD Isaiah [address] [place] [address] Social History Tobacco Use Types Packs/Day Years Used Date Smoking Tobacco: Every Day Alcohol Use Standard Drinks/Week Comments No 0 (1 standard drink = 0.6 oz pur e alcohol) Comments Unknown Sex and Gender Information Value Date Recorded Sex Assigned at Not on file Legal Sex Female 9:24 AM MANAGER QA Gender Identity Not on file Sexual Orientation Not on file documented as of this encounter Plan of Treatment Not on file documented as of this encounter Procedures Procedure Name Priority Date/Time Associated Diagnosis Comments CARDIOLOGY REPORT 02/15/2017 documented in this encounter Results * CARDIOLOGY REPORT (02/15/2017) Anatomical Region Laterality Modality Other Narrative 02/15/2017 Ordered by an unspecified provider. Historical Provider [facility] D[facility] Final Result documented in this encounter Visit Diagnoses Not on filedocumented in this encounter Care Teams Jalousies Installer Relationship Specialty Start Date End Date Jewel Edmond MD [address] [id number] PCP - General 01/30/13 06/08/20 Mauricio Shirley DO [address] [place] [address] PCP - General Family Medicine 06/09/20 Torin Prescott MD [address] [address] Consulting Physician Cardiology 07/01/20 documented as of this encounter
--- OUTSIDE RECORDS SUMMARY | 2025-01-05 15:58 | XMS_ITS | Referral Summary ---
Author Organization [facility] Address [address] [place] [address] Care Team Providers Care Merchandise Flow Manager Name Role Phone Fern Mauricio Pradhanh Primary Care Provider Torin Prescott MD Unavailable Encounters Date Type Department Care Team Description 12/04/2024 Orders Only [facility] Cardiology [address] [facility] Medical Office Building [address] [place] [address] Samson Dorado MD 12/04/2024 Telephone [facility] Cardiology [address] [facility] Advanced Medicine 8th [place] [address] [place] [phone] Samson Dorado MD 11/04/2024 Telephone [facility] Cardiology [address] [facility] Advanced Medicine 8th [place] [address] [place] [phone] Samson Dorado MD 10/21/2024 Telephone [facility] Cardiology [address] [facility] [address] [place] [address] Reva Olsen NP from Last 3 Months Allergies Active Allergy Reactions Criticality Noted Date [...] Prednisone Agitation Low 08/25/2024 Seldane-D Hallucinations Medium Soqlbel-Rcm-Khk Reductase Inhibitors Other (See comments) Low 08/25/2024 Aches and pains all over Sulfa Unknown 08/25/2024 Trimethoprim Unknown 08/25/2024 Medications aspirin 81 mg tabletIndications: prevention of thrombosis Take one by mouth one time per day 0 0 9 Active oxybutynin (DITROPAN) 5 mg tabletIndications: [...] 1 tablet (20 mg total) by mouth heavy cleaner before breakfast 4 Active spironolactone (ALDACTONE) 25 mg tabletIndications: hypertension Take 1 tablet (25 mg total) by mouth heavy cleaner before breakfast 4 Active allopurinoL (ZYLOPRIM) 300 mg tabletIndications: prevention of acute gout attack Take 1 tablet (300 mg total) by mouth heavy cleaner before breakfast 4 Active carvediloL (Coreg) 25 [...] 08/25/2024 Assessment & Plan (08/25/2024 9:08 PM WASTEWATER SUPERVISOR): On Leqvio SQ outpatient NICM (nonischemic cardiomyopathy) 07/11/2024 Assessment & Plan (08/26/2024 2:49 PM WASTEWATER SUPERVISOR): Patient was referred for REFRIGERATION ENGINEER-D upgrade after decline in EF 40-45%-->25-30% despite GDMT as tolerated. Declined ICD in clinic. - Patient complaining of jerking similar to her heart beat after device interrogation and 2v CXR. - touched base with [employer] who explained a lead must also be [...] 07/06/2024 Assessment & Plan (08/25/2024 9:06 PM WASTEWATER SUPERVISOR): s/p medtronic dual-chamber PM 05/20/2003 and generator change 06/2020 with consistent >98% v-pacing burden -Now s/p REFRIGERATION ENGINEER-D upgrade Visit for wound check 07/02/2020 SOB (shortness of breath) 07/01/2020 Positive cardiac stress test 07/01/2020 Positive D dimer 07/01/2020 Type 2 diabetes mellitus, wi thout long-term current use of insulin 07/01/2020 Assessment & Plan (08/25/2024 9:05 PM WASTEWATER SUPERVISOR): -Resume home metformin on discharge Pulmonary nodules 07/01/2020 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 Dx; NICM, CHF, CHB. DOI 08/25/2024-Estrada. Chronic A&V leads 2002. Alhaji. Carelink remote. Primary hypertension 07/28/2014 Assessment & Plan (08/25/2024 9:06 PM WASTEWATER SUPERVISOR): -Continue home coreg, losartan, lasix, aldactone Social History Tobacco Use Types Packs/Day Years [...] on file Legal Sex Female 9:24 AM WASTEWATER SUPERVISOR Gender Identity Not on file Sexual Orientation Not on file Last Filed Vital Signs Vital Sign Reading Time Taken Comments Blood Pressure 95/55 09/08/2024 12:24 PM WASTEWATER SUPERVISOR Pulse 97 09/08/2024 12:24 PM WASTEWATER SUPERVISOR Temperature 37 C (98.6 F) 08/26/2024 9:10 AM WASTEWATER SUPERVISOR Respiratory Rate 16 08/26/2024 9:10 AM WASTEWATER SUPERVISOR Oxygen Saturation 96% 09/08/2024 12:24 PM WASTEWATER SUPERVISOR Inhaled Oxygen Concentration - - Weight 58.6 kg (129 lb 3.2 oz) 09/08/2024 12:24 PM WASTEWATER SUPERVISOR Height 157.5 cm (5' 2 ) 09/08/2024 12:24 PM WASTEWATER SUPERVISOR Body Mass Index 23.63 09/08/2024 12:24 PM WASTEWATER SUPERVISOR Plan of Treatment Not on file Medical Devices Implanted Type Area Printing Table Worker Device Identifier Shelf Expiration Date Model / Serial / Lot Medtronic Inc Attain Stability Quad Mri Surescan Active Fixation Lv Lead 88cm [id number] - [id number] - [id number] Implanted:Qty: 1 on 08/25/2024 by Samson Dorado MD at [facility] Lead Medtronic Inc 04/20/2025 [id number] / [id number] / Pacemaker Implanted:Qty: 3 Pacemaker Left: Chest Wall Medtronic Description:2019 Pacemaker-05/20 Implanted:05/08 (Quantity not on file) Pacemaker Left: Chest Medtronic CHB ADAPTA [id number] / [id number] / CHRONIC LEADS 09/10/03 Medtronic Inc Solara Mri Surescan Bluetooth 46.5x59mm Connector Hole Radiopaque [id number] - [id number] - [id number] Implanted:Qty: 1 on 08/25/2024 by Samson Dorado MD at [facility] Pacemaker Medtronic Inc 09/20/2025 [id number] / [id number] / Procedures Procedure Name Priority Date/Time Associated Diagnosis Comments DEVICE CHECK - REMOTE Routine 12/04/2024 2:12 AM WASTEWATER SUPERVISOR EGFR Routine 08/25/2024 3:15 PM WASTEWATER SUPERVISOR POCT LIPID PANEL Routine 05/01/2024 1:11 PM CDT Hyperlipidemia, unspecified hyperlipidemia type Coronary artery disease involving seldovia coronary artery of seldovia heart without angina pectoris HEMOGLOBIN A1C Routine 07/01/2020 8:56 AM CDT from Last 3 Months or Most Recently Relevant to Health Maintenance Results * DEVICE CHECK - REMOTE (12/04/2024 2:12 AM WASTEWATER SUPERVISOR) Anatomical Region Laterality Modality Other 12/04/2024 2:12 AM WASTEWATER SUPERVISOR Narrative 01/02/2025 4:38 PM CDT Interpretation Summary: Battery and Leads (BL) Normal parameters noted on battery and lead(s) --- 9.8 yrs remaining longevity. Lead impedance, threshold, and RA sensing trends stable and appropriate. No short V-V intervals. Presenting Rhythm (MS) Atrial Sensing-BiVentricular Pacing (-BiVP) --- /BVP 66 [...] andappropriate. No short V-V intervals. Presenting Rhythm (MS) Atrial Sensing-BiVentricular Pacing (-BiVP) --- /BVP 66 to 68 bpm. Arrhythmic events (AE) No new arrhythmic events in monitoring period --- Since 09/08/24: No AHRor VHR episodes. Miscellaneous Observations (MISC) Pacing dependence in the Ventricle Transmission Information (TI) Device Summary Report Follow Up (FU) Patient's primary treating physician will be apprised of findings Samson Dorado MD [facility] PRO CEDURES Final Result * (ABNORMAL) eGFR (08/25/2024 3:15 PM WASTEWATER SUPERVISOR) eGFR 56(L) >=60 mL/min/1. 73 m2 Comment: [...] of Race in Diagnosing Kidney Disease, JASN 2020). The CKD-EPI equation should not be used for patients with unstable renal function and has not been validated in children and those over 70. Current interpretive data was last reviewed 2021. Blood 08/25/2024 3:15 PM WASTEWATER SUPERVISOR 08/25/2024 3:26 PM WASTEWATER SUPERVISOR Samson Dorado MD LAB BLOOD ORDERABLES Fi nal Result [facility] [address] [facility] Department [place] [address] * POCT lipid panel (05/01/2024 1:11 PM [...] and children were not included. (Diabetes Care 31:8541-5220, 2008). The eAG is not equivalent to a fasting glucose. Blood specimen (specimen) 07/01/2020 8:56 AM CDT 07/01/2020 8:59 AM CDT Richard Varela MD LAB BLOOD ORDERABLES F inal Result Performing Organization Address City/[facility]/ZIP Co de Phone Number [facility] [phone] Department [place] [address] from Last 3 Months or Most Recently Relevant to Health Maintenance Insurance MEDICARE RAILROAD MEDICARE RAILROAD BLUE CROSS MEDICARE SUPPLEMENT MEDICARE RAILROAD [facility] MEDICARE SUPPLEMENT Advance Directives For more information, please contact: [phone] Documents on File Type Date Recorded Patient Security Attendant Expl anation ADVANCE DIRECTIVE 08/29/2024 12:42 AM [facility] [place] WORKER-FINANCIAL * Full Code (Latest Code Status on File) Date Activated Date Inactivated Comments 08/25/2024 8:33 PM 08/26/2024 7:29 PM * Full Code Date Activated Date Inactivated Comments 07/01/2020 2:32 AM 07/01/2020 6:14 PM Care Teams Merchandise Flow Manager Relationship Specialty Start Date End Date Mauricio Shirley DO [address] [place], [place] [id number] PCP - General Family Medicine 06/09/20 Torin Prescott MD [address] [facility] [address] [place] [id number] Consulting Physician Cardiology 07/01/20
--- OUTSIDE RECORDS SUMMARY | 2025-01-05 15:58 | XMS_ITS | CONTINUITY OF CARE DOCUMENT ---
Author Name ruben, ruben Address Unknown Organization [facility] Address [address] [facility] [address] [place] [address] Phone [phone] Care Team Providers Care Slubber Operator Name Role Phone Gaurav ELIZABETH, Karol Unavailable FRANK PLUNKETT MD Unavailable [phone] FRANK PLUNKETT MD Unavailable [phone] PROBLEMS Condition Status Date Provider Notes HTN essential active Karol Nolasco MD CHB - S/P PACEMAKER active Karol Strange Cardiomyopathy EF 30% 09/2014 active Guillermo Nolasco MD ENCOUNTERS Date Type Provider Location Encounter Diag nosis - In-person encounter Office Visit [facility] - In-person encounter Office Visit [facility] - In-person encounter Office Visit Karol Nolasco MD [place] [facility] Cardiomyopathy EF 30% 09/2014 - In-person encounter Office Visit [facility] HTN essentialCHB - S/P PACEMAKERCardiomyopathy EF 30% 09/2014 VITAL SIGNS Date Observation Value Provider blood pressure, diastolic 72 mm[Hg] James Nolasco MD blood pressure, systolic 110 mm[Hg] Andreea Nolasco MD Body Mass Index (Ratio) 31.09 kg/m2 Moy Nolasco MD pulse rate 90 /min Karol Nolasco MD oxygen saturation, oximetry 97 % Karol Nolasco MD respiratory rate E&M 16 /min Bertha Nolasco MD weight E&M 170 [lb_av] Karol Nolasco MD Body Mass Index (Ratio) 30.91 kg/m2 Moy Nolasco MD blood pressure, diastolic 78 mm[Hg] James Nolasco MD blood pressure, systolic 130 mm[Hg] Andreea Nolasco MD pulse rate 92 /min Karol Nolasco MD oxygen saturation, oximetry 96 % Karol Nolasco MD respiratory rate E&M 16 /min Bertha Nolasco MD weight E&M 169 [lb_av] Karol Nolasco MD height E&M 62 [in_i] Karol Nolasco MD Body Mass Index (Ratio) 30.11 kg/m2 Moy Nolasco MD weight E&M 170 [lb_av] Karol Nolasco MD height E&M 63 [in_i] Karol Nolasco MD oxygen saturation, oximetry 94 % Karol Nolasco MD pulse rate 88 /min Karol Nolasco MD blood pressure, diastolic 70 mm[Hg] James Nolasco MD blood pressure, systolic 122 mm[Hg] Andreea Nolasco MD Body Mass Index (Ratio) 30.72 kg/m2 Moy Nolasco MD blood pressure, diastolic 68 mm[Hg] James Nolasco MD blood pressure, systolic 116 mm[Hg] Andreea Nolasco MD pulse rate 86 /min Karol Nolasco MD oxygen saturation, oximetry 97 % Karol Nolasco MD respiratory rate E&M 16 /min Bertha Nolasco MD height E&M 62 [in_i] Karol Nolasco MD weight E&M 168 [lb_av] Karol Nolasco MD ALLERGIES Allergy Name Onset Date Reaction Criticality Status MOLD High Criticality active HISTORY OF MEDICATION USE Medication Status Instructions Dates Provider Indications Com ments ALDACTONE 25 MG ORAL TABLET completed ONE TAB DAILY 5 - 9 Aileen Sanchez RN GNP VITAMIN D 1000 UNIT ORAL TABLET active three tabs a day 1 Karol Nolasco MD [facility] LUTEIN CAPSULE active once a day 1 Karol Nolasco MD KRILL OIL 300 MG ORAL CAPSULE active once daily 1 Karol Nolasco MD AMLODIPINE BESYLATE 10 MG ORAL TABLET active one tab daily 1 Karol Nolasco MD LISINOPRIL 40 MG ORAL TABLET active ONE TAB. DAILY 1 Karol Nolasco MD CARVEDILOL 25 MG ORAL TABLET active one tab twice daily 1 Karol Nolasco MD SOCIAL HISTORY Date Observation Value Provider smoking/tobacco cess ation, patient education and counseling No Karol Nolasco MD smoking status Former smoker Karol richardson MD social history reviewed E&M revi ewed - no changes required Karol Nolasco MD smoking/tobacco cess ation, patient education and counseling No Karol Nolasco MD smoking status Former smoker Karol richardson MD social history reviewed E&M revi ewed - no changes required Karol Nolasco MD smoking/tobacco cess ation, patient education and counseling No Karol Nolasco MD smoking status Former smoker Karol richardson MD social history reviewed E&M revi ewed - no changes required Karol Nolasco MD social history reviewed E&M revi ewed - no changes required Karol Nolasco MD social history E&M Patient is a former smoker. 1 pack every day and a half Smoking History: Josie sandoval is a former smoker. Karol Nolasco MD smoking/tobacco cess ation, patient education and counseling No Karol Nolasco MD smoking status Former smoker Karol richardson MD FAMILY HISTORY Family Member Condition Mother Family History of Di abetes: Father Family History of Co ronary Artery Disease: INSURANCE PROVIDERS Payer name Policy type / Coverage type Stanley red democrat ID [facility] [id number] RAILROAD MEDICARE Medicare [id number] TREATMENT PLAN Date Name Performer : H er updated medication list for this problem includes: Amlodipine Besylate 10 Mg Tabs (Amlodipine besylate) ..... One tab daily Lisinopril 40 Mg Tabs (Lisinopril) ..... One tab. daily Carvedilol 25 Mg Tabs (Carvedilol) ..... One tab twice daily aKrol Nolasco MD : H er updated medication list for this problem includes: Amlodipine Besylate 10 Mg Tabs (Amlodipine besylate) ..... One tab daily Lisinopril 40 Mg Tabs (Lisinopril) ..... One tab. daily Carvedilol 25 Mg Tabs (Carvedilol) ..... One tab twice daily Karol Nolasco MD : H er updated medication list for this problem includes: Amlodipine Besylate 10 Mg Tabs (Amlodipine besylate) ..... One tab daily Lisinopril 40 Mg Tabs (Lisinopril) ..... One tab. daily Carvedilol 25 Mg Tabs (Carvedilol) ..... One tab twice daily Karol Nolasco MD faxed to pcp: H er updated medication list for this problem includes: Amlodipine Besylate 10 Mg Tabs (Amlodipine besylate) ..... One tab daily Lisinopril 40 Mg Tabs (Lisinopril) ..... One tab. daily Carvedilol 25 Mg Tabs (Carvedilol) ..... One tab twice daily Karol Nolasco MD faxed to pcp: H er updated medication list for this problem includes: Amlodipine Besylate 10 Mg Tabs (Amlodipine besylate) ..... One tab daily Lisinopril 40 Mg Tabs (Lisinopril) ..... One tab. daily Carvedilol 25 Mg Tabs (Carvedilol) ..... One tab twice daily BP today: 130/78 P rior BP: 122/70 (01/26/2015) Karol Nolasco MD faxed to pcp: H er updated medication list for this problem includes: Amlodipine Besylate 10 Mg Tabs (Amlodipine besylate) ..... One tab daily Lisinopril 40 Mg Tabs (Lisinopril) ..... One tab. daily Carvedilol 25 Mg Tabs (Carvedilol) ..... One tab twice daily Karol Nolasco MD faxed to pcp: H er updated medication list for this problem includes: Amlodipine Besylate 10 Mg Tabs (Amlodipine besylate) ..... One tab daily Lisinopril 40 Mg Tabs (Lisinopril) ..... One tab. daily Carvedilol 25 Mg Tabs (Carvedilol) ..... One tab twice daily BP today: 122/70 P rior BP: 116/68 (07/28/2014) Karol Nolasco MD faxed to pcp: H er updated medication list for this problem includes: Amlodipine Besylate 10 Mg Tabs (Amlodipine besylate) ..... One tab daily Lisinopril 40 Mg Tabs (Lisinopril) ..... One tab. daily Carvedilol 25 Mg Tabs (Carvedilol) ..... One tab twice daily Karol Nolasco MD faxed to pcp: H er updated medication list for this problem includes: Amlodipine Besylate 10 Mg Tabs (Amlodipine besylate) ..... One tab daily Lisinopril 40 Mg Tabs (Lisinopril) ..... One tab. daily Carvedilol 25 Mg Tabs (Carvedilol) ..... One tab twice daily Karol Nolasco MD : H er updated medication list for this problem includes: Amlodipine Besylate 10 Mg Tabs (Amlodipine besylate) ..... One tab daily Lisinopril 40 Mg Tabs (Lisinopril) ..... One tab. daily Carvedilol 25 Mg Tabs (Carvedilol) ..... One tab twice daily Orders: Adam[facility] omplete Echo ([id number]) Karol Nolasco MD : H er updated medication list for this problem includes: Amlodipine Besylate 10 Mg Tabs (Amlodipine besylate) ..... One tab daily Lisinopril 40 Mg Tabs (Lisinopril) ..... One tab. daily Carvedilol 25 Mg Tabs (Carvedilol) ..... One tab twice daily Orders: Adam[facility] omplete Echo ([id number]) Karol Nolasco MD : H er updated medication list for this problem includes: Amlodipine Besylate 10 Mg Tabs (Amlodipine besylate) ..... One tab daily Lisinopril 40 Mg Tabs (Lisinopril) ..... One tab. daily Carvedilol 25 Mg Tabs (Carvedilol) ..... One tab twice daily Orders: [facility] omplete Echo ([id number]) Karol Nolasco MD Date Name BASIC METABOLIC PANE L W/EGFR Complete Echo HISTORY OF PROCEDURES Procedure Date Procedure Name Provider Procedure Notes S tatus Pacemaker Interrogation, Remote (Tech) Karol Nolasco MD INTERROGATION REMOTE </90 D COURSE DEVELOPER REVIEW completed Pacemaker Interrogation, Remote (Prof) Karol Nolasco MD INTERROGATION EVAL REMOTE </90 D 1/2/PERFORMANCE TEST ENGINEER LEAD P completed Pacemaker Interrogation, Remote (Tech) Karol Nolasco MD INTERROGATION REMOTE </90 D COURSE DEVELOPER REVIEW completed Pacemaker Interrogation, Remote (Prof) Karol Nolasco MD INTERROGATION EVAL REMOTE </90 D 1/2/PERFORMANCE TEST ENGINEER LEAD P completed ICM Interrogation, Remote (Prof) Kraol Nolasco MD INTERROGATION EVAL REMOTE </30 D CV MNTR SYS completed ICM Interrogation, Remote (Tech) Karol Nolasco MD INTERROGATION EVAL REMOTE </30 D TECH REVIEW completed Pacemaker Interrogation, Remote (Tech) Karol Nolasco MD INTERROGATION REMOTE </90 D COURSE DEVELOPER REVIEW completed Pacemaker Interrogation, Remote (Prof) Karol Nolasco MD INTERROGATION EVAL REMOTE </90 D 1/2/PERFORMANCE TEST ENGINEER LEAD P completed
--- OUTSIDE RECORDS SUMMARY | 2025-01-05 15:58 | XMS_ITS | Encounter Summary ---
Author Organization [facility] Address [address] [facility] [address] [place] [id number] Care Team Providers Care Copper Miner Name Role Phone Jewel Edmond MD Primary Care Provider [phone] Mauricio Shirley DO Primary Care Provider Torin Prescott MD Unavailable Encounter Details Date Type Department Care Team (Late st Contact Info) Description 11/08/2016 Orders Only [facility] ProviderIsaiah MD [address] [place] [id number] Social History Tobacco Use Types Packs/Day Years Used Date Smoking Tobacco: Every Day Alcohol Use Standard Drinks/Week Comments No 0 (1 standard drink = 0.6 oz pur e alcohol) Comments Unknown Sex and Gender Information Value Date Recorded Sex Assigned at Not on file 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 Historical Provider [facility] DEEPA KNAPP Final Result documented in this encounter Visit Diagnoses Not on filedocumented in this encounter Care Teams Copper Miner Relationship Specialty Start Date End Date Jewel Edmond MD [address] [phone] PCP - General 01/30/13 06/08/20 Mauricio Shirley DO [address] [place] [address] PCP - General Family Medicine 06/09/20 Torin Prescott MD [address] [address] Consulting Physician Cardiology 07/01/20 documented as of this encounter
--- OUTSIDE RECORDS SUMMARY | 2025-01-05 15:58 | XMS_ITS | Clinical Summary ---
Author Organization [facility] [employer] Address [address] [place] [address] Care Team Providers Care Grain Elevator Man Name Role Phone Jewel Edmond MD Primary Care Provider [phone] Source Comments [facility] and Associated Physician Practices is amultiple site organization consisting of ambulatory clinics and hospital sitesin [place], [place], [place] and [place]. This disclosure is being madepursuant to the Care Everywhere program and may not contain all information available regarding this patient. Last updated 18.[facility] [employer] Allergies Active Allergy Reactions Criticality Noted Date Comments Codeine Other Low 06/28/2015 Severe stomach ache, Severe stomach ache, Severe stomach ache Morphine Other Medium 04/14/2015 Serve pain in the pit of her stomach, Serve pain in the pit of her stomach, Serve pain in the pit of her stomach Family History Medical History Relation Name Comments None Known Mother Relation Name Status Comments Mother Social History Tobacco Use Types Packs/Day Years Used Date Smoking Tobacco: Former Smokeless Tobacco: Never Alcohol Use Standard Drinks/Week Comments No 0 (1 standard drink = 0.6 oz pur e alcohol) Sex and Gender Information Value Date Recorded Sex Assigned at Not on file Gender Identity Not on file Sexual Orientation Not on file Last Filed Vital Signs Vital Sign Reading Time Taken Comments Blood Pressure 123/71 06/28/2015 11:00 AM CDT Pulse 61 06/28/2015 11:00 AM CDT Temperature 36.6 C (97.9 F) 06/28/2015 11:00 AM CDT Respiratory Rate 16 06/28/2015 11:00 AM CDT Oxygen Saturation 95% 06/28/2015 11:00 AM CDT Inhaled Oxygen Concentration - - Weight 79.4 kg (175 lb) 06/28/2015 7:10 AM CDT Height 157.5 cm (5' 2 ) 06/28/2015 7:10 AM CDT Body Mass Index 32.01 06/28/2015 7:10 AM CDT Plan of Treatment Health Maintenance Due Date Last Done Comments BONE DENSITY TESTING 1945 MEDICARE AWV 12 MONTHS 1945 HEPATITIS C SCREENING 03/16/1964 DTAP/TDAP/TD VACCINES (1 - Tdap) 1965 PNEUMOCOCCAL VACCINE 50+ (1 of 1 - PCV) 1996 ZOSTER VACCINE (1 of 2) 1996 Respiratory Syncytial Virus (RSV) Vaccine Pt: or over 60 yrs (1 - 1-dose 75+ series) 2021 COVID-19 VACCINE ( - 2023-2 5 season) 2024 INFLUENZA VACCINE (#1) 2024 DEPRESSION SCREENING 10/08/2024 HEPATITIS B VACCINE Aged Out No longe r eligible based on patient's age to complete this topic HIB VACCINE Aged Out No longer eligi ble based on patient's age to complete this topic HPV VACCINE Aged Out No longer eligi ble based on patient's age to complete this topic MENINGOCOCCAL (Group B) VACC INE SHARED DECISION-MAKING Aged Out No longer eligibl e based on patient's age to complete this topic MENINGOCOCCAL GROUPS A/C/Y/W VACCINE Aged Out No longer eligible b ased on patient's age to complete this topic Care Teams Grain Elevator Man Relationship Specialty Start Date End Date Poos, Jewel D, MD [address] [place] [address] PCP - General 02/12/15
== END 2025-01-05 14:31 | disposition home or self-care (01) ==
LOC: CHSIMG 14:31
PROVIDERS: PCP Nurse Practitioner Family; Visit Provider Nurse Practitioner Family
DX: M25.561 Pain in right knee (principal)
CPT/HCPCS: 73562

== ENCOUNTER 2025-03-03 14:58 | Outpatient (CLI) | payer MEDICARE, SELFPAY ==
--- OUTSIDE RECORDS SUMMARY | 2025-03-03 15:02 | XMS_ITS | Encounter Summary ---
Author Organization [facility] Address [address] [place] [address] Phone Care Team Providers Care Banking Supervisor Name Role Phone Mauricio Shirley DO Primary Care Provider Torin Prescott MD Unavailable Encounter Details Date Type Department Care Team (Late st Contact Info) Description 02/06/2025 Results Follow-Up [facility] Cardiology [address] [facility] Advanced Medicine 8th [place] [address] [place] [address] Chance Gilbert MD [address] [facility] [address] [place], [place] [id number] Apolipoprotein B, serum Social History Tobacco Use Types Packs/Day Years Used Date Smoking Tobacco: Former Cigarettes Q uit: 10/08/2000 Smokeless Tobacco: Never Alcohol Use Standard Drinks/Week [...] on file 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
--- OUTSIDE RECORDS SUMMARY | 2025-03-03 15:02 | XMS_ITS | CONTINUITY OF CARE DOCUMENT ---
Author Name ruben, ruben Address Unknown Organization [facility] Address [address] [place] [address] Phone [phone] Care Team Providers Care Reconciliation Manager Name Role Phone Gaurav ELIZABETH, Karol Unavailable FRANK PLUNKETT MD Unavailable [phone] FRANK PLUNKETT MD Unavailable [phone] PROBLEMS Condition Status Date Provider Notes HTN essential active Karol Nolasco MD CHB - S/P PACEMAKER active Karol Strange Cardiomyopathy EF 30% 09/2014 active Guillermo Nolacso MD ENCOUNTERS Date Type Provider Location Encounter Diag nosis - In-person encounter Office Visit [facility] - In-person encounter Office Visit [facility] - In-person encounter Office Visit Karol Nolasco MD [place] [facility] Cardiomyopathy EF 30% 09/2014 - In-person [...] Payer name Policy type / Coverage type [place] [employer] party ID [facility] [id number] RAILROAD MEDICARE Medicare [id number] TREATMENT PLAN Date Name Performer : H [...] tab twice daily Orders: Adamaris omplete Echo ([id number]) Karol Nolasco MD : H er updated medication list for this problem includes: Amlodipine Besylate 10 Mg Tabs (Amlodipine besylate) ..... One tab daily Lisinopril 40 Mg Tabs (Lisinopril) ..... One tab. daily Carvedilol 25 Mg Tabs (Carvedilol) ..... One tab twice daily Orders: Adamaris omplete Echo ([id number]) Karol Nolasco MD : H er updated medication list for this problem includes: Amlodipine Besylate 10 Mg Tabs (Amlodipine besylate) ..... One tab daily Lisinopril 40 Mg Tabs (Lisinopril) ..... One tab. daily Carvedilol 25 Mg Tabs (Carvedilol) ..... One tab twice daily Orders: Adamaris omplete Echo ([id number]) Karol Nolasco MD Date Name BASIC METABOLIC PANE L W/EGFR Complete Echo HISTORY OF PROCEDURES Procedure Date Procedure Name Provider Procedure Notes S tatus Pacemaker Interrogation, Remote (Tech) Karol Nolasco MD INTERROGATION REMOTE </90 D MOTORBOAT OPERATOR REVIEW completed Pacemaker Interrogation, Remote (Prof) Karol Nolasco MD INTERROGATION EVAL REMOTE </90 D 1/2/DWARF TREE GROWER LEAD P completed Pacemaker Interrogation, Remote (Tech) Karol Nolasco MD INTERROGATION REMOTE </90 D MOTORBOAT OPERATOR REVIEW completed Pacemaker Interrogation, Remote (Prof) Karol Nolasco MD INTERROGATION EVAL REMOTE </90 D 1/2/DWARF TREE GROWER LEAD P completed ICM Interrogation, Remote (Prof) Karol Nolasco MD INTERROGATION EVAL REMOTE </30 D CV MNTR SYS completed ICM Interrogation, Remote (Tech) Karol Nolasco MD INTERROGATION EVAL REMOTE </30 D TECH REVIEW completed Pacemaker Interrogation, Remote (Tech) Karol Nolasco MD INTERROGATION REMOTE </90 D MOTORBOAT OPERATOR REVIEW completed Pacemaker Interrogation, Remote (Prof) Karol Nolasco MD INTERROGATION EVAL REMOTE </90 D 1/2/DWARF TREE GROWER LEAD P completed
--- OUTSIDE RECORDS SUMMARY | 2025-03-03 15:02 | XMS_ITS | Encounter Summary ---
Author Organization [facility] Address [address] [facility] [address] [place] [address] Care Team Providers Care Mangle Roll Operator Name Role Phone Jewel Edmond MD Primary Care Provider [phone] Mauricio Shirley DO Primary Care Provider Torin Prescott MD Unavailable Encounter Details Date Type Department Care Team (Late st Contact Info) Description 11/08/2016 Orders Only [facility] Provider, MD Isaiah [address] [place] [address] Social History Tobacco Use Types Packs/Day Years Used Date Smoking Tobacco: Every Day Alcohol Use Standard Drinks/Week Comments No 0 (1 standard drink = 0.6 oz pur e alcohol) Comments Unknown Sex and Gender Information Value Date Recorded Sex Assigned at Not on file 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
--- OUTSIDE RECORDS SUMMARY | 2025-03-03 15:02 | XMS_ITS | Referral Summary ---
Author Organization [facility] Address [address] [place] [address] Care Team Providers Care Helicopter Pilot Instructor Name Role Phone Mauricio Shirley DO Primary Care Provider Torin Prescott MD Unavailable Encounters Date Type Department Care Team Description 02/19/2025 2:15 PM CDT Office Visit [facility] Cardiology [address] [place] [address] 8th [place] [address] [place] [address] Julia Obando NP Cardiac resynchronization therapy pacemaker (INTEGRITY SPECIALIST-P) in place (Primary Dx); CHB (complete heart block) (HCC); Complete heart block (HCC); NICM (nonischemic cardiomyopathy) (HCC) 02/19/2025 1:30 PM CDT Ancillary Procedure [facility] Cardiology [facility] 8th [place] [address] [place] [address] NICM (nonischemic cardiomyopathy) (HCC) (Primary Dx); CHB (complete heart block) (HCC); Adjustment and management of cardiac pacemaker 02/13/2025 Telephone [facility] Cardiology [facility] 8th [place] [address] [place] [address] Chance Gilbert MD 02/09/2025 Telephone [facility] Cardiology [facility] 8th [place] [address] [place] [address] Chance Gilbert MD 02/06/2025 Results Follow-Up [facility] Cardiology [address] [place] [address] Advanced Medicine 8th [place] [address] [place] [address] Chance Gilbert MD Apolipoprotein B, serum 02/05/2025 Orders Only [facility] [address] [place] [address] Yasmeen Granados MD 02/03/2025 2:15 PM CDT Lab [facility] Advanced [facility] [address] [place] [phone] 02/03/2025 2:00 PM CDT Lab [facility] Advanced [facility] ([facility]) [address] [place] [phone] NYHA class 2 heart failure with reduced ejection fraction (HCC); Hypercholesterolemia; Complete heart block (HCC); Primary hypertension; Coronary artery disease involving diomede coronary artery of diomede heart without angina pectoris; Cardiac resynchronization therapy pacemaker (INTEGRITY SPECIALIST-P) in place 02/03/2025 1:00 PM CDT Office Visit [facility] Cardiology [address] [place] [address] 8th [place] [address] [place] [address] Chance Gilbert MD NYHA class 2 heart failure with reduced ejection fraction (HCC) (Primary Dx); Hypercholesterolemia; Complete heart block (HCC); Primary hypertension; Coronary artery disease involving diomede coronary artery of diomede heart without angina pectoris; Cardiac resynchronization therapy pacemaker (INTEGRITY SPECIALIST-P) in place 12/04/2024 Orders Only [facility] Cardiology [facility] Building [address] [place] [address] Samson Dorado MD 12/04/2024 Telephone [facility] Cardiology [address] [place] [address] Advanced Medicine 8th [place] [address] [place] [address] Samson Dorado MD from Last 3 Months Allergies Active Allergy [...] Prednisone Agitation Low 08/25/2024 Seldane-D Hallucinations Medium Hvqmbon-Wfg-Qyh Reductase Inhibitors Other (See comments) Low 08/25/2024 Aches and pains all over Sulfa Unknown 08/25/2024 Trimethoprim Unknown 08/25/2024 Medications aspirin 81 mg tabletIndications :prevention of thrombosis Take one by mouth one time per day 0 0 009 Active oxybutynin (DITROPAN) 5 mg tabletIndications :Bladder Hyperactivity,Inc reased Urinary Frequency,Urinary Urge Incontinence,Urin lucy Urgency Take 1 tablet (5 mg total) by mouth 2 (two) times a day 4 017 Active metFORMIN (GLUCOPHAGE) 500 mg tabletIndications :type 2 diabetes mellitus Take 1 tablet (500 mg total) by mouth 2 (two) times a day with meals 020 Active spironolactone (ALDACTONE) 25 mg tabletIndications :hypertension Take 1 tablet (25 mg total) by mouth contract clerk automobile before breakfast 024 Active carvediloL (Coreg) 25 mg tabletIndications :Nonischemic cardiomyopathy (HCC) Take 0.5 tablets (12.5 mg total) by mouth 2 (two) times a day with meals 024 Active losartan (COZAAR) 25 mg tablet TAKE ONE TABLET BY MOUTH DAILY 90 tablet 024 Active lutein 20 mg capsuleIndication s:supplement Take 1 capsule (20 mg total) by mouth 2 (two) times a week 014 Active UNABLE TO FIND Weem gummy twice daily Active UNABLE TO FIND Garlique once daily Active triamcinolone (NASACORT) 55 mcg nasal inhaler Administer 2 sprays into each nostril as needed for rhinitis Active loratadine (CLARITIN) 10 mg tablet Take 1 tablet (10 mg total) by mouth daily Active furosemide (LASIX) 20 mg tabletIndications :Edema,hypertensi on Take 1 tablet (20 mg total) by mouth contract clerk automobile before breakfast 30 tablet 4 025 Active furosemide (LASIX) 20 mg tabletIndications :Edema,hypertensi on Take 1 tablet (20 mg total) by mouth contract clerk automobile before breakfast 024 2024 Discontinued(R eorder) allopurinoL (ZYLOPRIM) 300 mg tabletIndications :prevention of acute gout attack Take 1 tablet (300 mg total) by mouth contract clerk automobile before breakfast 024 2024 Discontinued(T herapy completed) inclisiran sodium (LEQVIO SUBQ)Indications: cholesterol Inject under the skin every 6 (six) months 2024 Discontinued furosemide (LASIX) 20 mg tabletIndications :Edema,hypertensi on Take 1 tablet (20 mg total) by mouth contract clerk automobile before breakfast 30 tablet 1 025 2024 Discontinued(R eorder) Active Problems Problem Noted Date Diagnosed Date NYHA class 2 heart failure with reduced ejection fraction 02/02/2025 Coronary artery disease invo lving diomede coronary artery of diomede heart without angina pectoris 02/02/2025 Hypercholesterolemia 08/25/2024 Assessment & Plan (08/25/2024 9:08 PM CAP MACHINE OPERATOR): On Leqvio SQ outpatient NICM (nonischemic cardiomyopathy) 07/11/2024 Assessment & Plan (08/26/2024 2:49 PM CAP MACHINE OPERATOR): Patient was referred for INTEGRITY SPECIALIST-D upgrade after decline in EF 40-45%-->25-30% despite GDMT as tolerated. Declined ICD in clinic. - Patient complaining of jerking similar to her heart beat after device interrogation and 2v CXR. - touched base with [facility] who explained a lead must also be [...] Complete heart block 07/06/2024 Assessment & Plan (02/19/2025 2:15 PM CDT): -Complete heart block, NICM LVEF 25-30% and chronic LV pacing s/p upgrade from dual chamber pacemaker to biventricular pacemaker 08/25/2024 -She is doing well with improvement in HF symptoms. Repeat echocardiogram scheduled in March 2025 Assessment & Plan (08/25/2024 9:06 PM CAP MACHINE OPERATOR): s/p medtronic dual-chamber PM 05/20/2003 and generator change 06/2020 with consistent >98% v-pacing burden -Now s/p INTEGRITY SPECIALIST-D upgrade Visit for wound check 07/02/2020 SOB (shortness of breath) 07/01/2020 Positive cardiac stress test 07/01/2020 Positive D dimer 07/01/2020 Type 2 diabetes mellitus, wi thout long-term current use of insulin 07/01/2020 Assessment & Plan (08/25/2024 9:05 PM CAP MACHINE OPERATOR): -Resume home metformin on discharge Pulmonary nodules 07/01/2020 Angiomyolipoma of left kidney 07/01/2020 Cardiac resynchronization th erapy pacemaker (INTEGRITY SPECIALIST-P) in place 12/19/2017 Overview (08/28/2024): Medtronic Solara BIV Pacemaker. Dx; NICM, CHF, CHB. DOI 08/25/2024-Estrada. Chronic A&V leads 2002. Alhaji. Carelink remote. Assessment & Plan (02/19/2025 2:14 PM CDT): -INTEGRITY SPECIALIST-P is functioning appropriately as programmed -Lead impedances, sensing, and thresholds are stable -No programming changes -Continue remote monitoring quarterly -Follow up in 1 year for device check Primary hypertension 07/28/2014 Assessment & Plan (08/25/2024 9:06 PM CAP MACHINE OPERATOR): -Continue home coreg, losartan, lasix, aldactone Social [...] on file Legal Sex Female 9:24 AM CAP MACHINE OPERATOR Gender Identity Not on file Sexual Orientation Not on file Last Filed Vital Signs Vital Sign Reading Time Taken Comments Blood Pressure 115/82 02/19/2025 1:18 PM CDT Pulse 106 02/19/2025 1:18 PM CDT Temperature 37 C (98.6 F) 08/26/2024 9:10 AM CAP MACHINE OPERATOR Respiratory Rate 16 08/26/2024 9:10 AM CAP MACHINE OPERATOR Oxygen Saturation 96% 02/19/2025 1:18 PM CDT Inhaled Oxygen Concentration - - Weight 60.7 kg (133 lb 12.8 oz) 02/19/2025 1:18 PM CDT Height 157.5 cm (5' 2) 02/03/2025 12:4 0 PM CDT Body Mass Index 24.47 02/03/2025 12:40 PM CDT Plan of Treatment Not on file Medical Devices Implanted Type Area Hvac/R Instructor Device Identifier Shelf Expiration Date Model / Serial / Lot Medtronic Inc Attain Stability Quad Mri Surescan Active Fixation Lv Lead 88cm [id number] - [id number] - [id number] Implanted:Qty: 1 on 08/25/2024 by Samson Dorado MD at [facility] Lead Medtronic Inc 04/20/2025 [id number] / [id number] / Pacemaker Implanted:Qty: 3 Pacemaker Left: Chest Wall Medtronic Description:2019 Pacemaker-05/20 Implanted:05/08 (Quantity not on file) Pacemaker Left: Chest Medtronic CHB ADAPTA [id number] / [id number] / CHRONIC LEADS 09/10/03 Medtronic Inc Solara Mri Surescan Bluetooth 46.5x59mm Connector Hole Radiopaque [id number] - [id number] - [id number] Implanted:Qty: 1 on 08/25/2024 by Samson Dorado MD at [facility] Pacemaker Medtronic Inc 09/20/2025 [id number] / [id number] / Procedures Procedure Name Priority Date/Time Associated Diagnosis Comments PRO B-TYPE NATRIURETIC PEPTIDE Routine 02/03/2025 2:17 PM CDT NYHA class 2 heart failure with reduced ejection fraction (HCC) LIPOPROTEIN A (LPA) Routine 02/03/2025 2 :17 PM CDT Hypercholesterolemia CRP, HIGH SENSITIVITY Routine 02/03/2025 2:17 PM CDT Hypercholesterolemia APOLIPOPROTEIN B Routine 02/03/2025 2:17 PM CDT NYHA class 2 heart failure with reduced ejection fraction (HCC) Hypercholesterolemia Complete heart block (HCC) Primary hypertension Coronary artery disease involving diomede coronary artery of diomede heart without angina pectoris Cardiac resynchronization therapy pacemaker (INTEGRITY SPECIALIST-P) in place DEVICE CHECK - REMOTE Routine 12/04/2024 2:12 AM CAP MACHINE OPERATOR EGFR Routine 08/25/2024 3:15 PM CAP MACHINE OPERATOR POCT LIPID PANEL Routine 05/01/2024 1:11 PM CDT Hyperlipidemia, unspecified hyperlipidemia type Coronary artery disease involving diomede coronary artery of diomede heart without angina pectoris HEMOGLOBIN A1C Routine 07/01/2020 8:56 AM CDT from Last 3 Months or Most Recently Relevant to Health Maintenance Results * Pro B-type natriuretic peptide (02/03/2025 2:17 PM CDT) NT-proBNP 368 <=450 pg/mL Comment: Interpretive Comments: A. Dyspnea in Acute Care Setting All Ages: < 300 pg/ml, acute heart failure unlikely. < 50 yrs: 300 - 450 pg/ml, further investigation warranted. > 450 pg/ml, acute heart failure likely. 50 - 74 yrs: 300 - 900 pg/ml, further investigation warranted. > 900 pg/ml, acute heart failure likely . > or = 75 yrs: 450 - 1800 pg/ml, further investigation warranted. > 1800 pg/ml, acute heart failure likely. B. Non-acute Setting < 75 yrs < 125 pg/ml, rules out heart failure. > or = 125 pg/ml, further investigation warranted. > or = 75 yrs < 450 pg/ml, rules out heart failure. > or = 450 pg/ml, further investigation warranted. - Knowledge of each individual patient's NT-proBNP range may be more useful than using similar cut-points for every patient. Please note that marked elevations in NT-proBNP levels may be observed in state other than Left Ventricular Congestive Failure, including: acute coronary syndromes, right heart strain/failure (including pulmonary embolism and cor pulmonale), critical illness, renal failure, as well as advanced age. - References: 1. Barry JL et.al. Eur Heart J. 2006:27:330-337. 2. Ester RW, Nadine SAEZ. J. AM Lori Cardiol: Cardiovasc Imag. 2009;2: 216- 225. Interpretive Data Last Revised Date: 2018. Blood 02/03/2025 2:17 PM CDT 02/03/2025 2:51 PM CDT us Yasmeen Granados MD LAB BLOOD ORDERABLES Final Re sult [facility] Department of Laboratories [place], [place] [id number] * Apolipoprotein B, serum (02/03/2025 2:17 PM CDT) Apolipoprotein B 65 mg/dL [place] ref Lab Comment: REFERENCE VALUE Desirable: <90 Above Desirable: 90-99 Borderline high: 100-119 High: 120-139 Very high: > or = 140 Test Performed by: [address] [address] Architecture Department Chair: Leana Mccartney Ph.D.; CLIA# [id number] Blood 02/03/2025 2:17 PM CDT 02/03/2025 5:15 PM CDT us Chance Gilbert MD LAB BLOOD ORDERABLES Faye collins Result [facility] Department [place] [address] [facility] ref [facility] * Lipoprotein a (LPa) (02/03/2025 2:17 PM CDT) Lipoprotein A <7 <75 nmol/L [place] ref Lab Comment: ADDITIONAL INFORMATION Please notice that Lp(a) values are reported in molar units (nmol/L). These units are recommended by professional society guidelines and expert opinion statements. Measured results and risk thresholds are higher than those generated using mass units (mg/dL). Cardiovascular risk increases starting at 75 nmol/L. Lp(a) >=125 nmol/L is considered a risk enhancing factor by the [place] [employer]. This test has been modified from the chief steward/stewardess's instructions. Its performance characteristics were determined by [facility] in a manner consistent with CLIA requirements. This test has not been cleared or approved by the U.S. Food and Drug Administration. Test Performed by: [address] [address] Architecture Department Chair: Leana Mccartney Ph.D.; CLIA# [id number] Blood 02/03/2025 2:17 PM CDT 02/03/2025 5:15 PM CDT Yasmeen Granados MD LAB BLOOD ORDERABLES Final Re sult Performing Organization Address [facility]/ZIP Co de Phone Number [facility] Department [place] [address] [facility] ref [facility] * CRP (cardiac risk) (02/03/2025 2:17 PM CDT) hsCRP 0.84 mg/L Comment: Interpretive data Adult only - values greater than or equal to 10 mg/L are consistent with infection or inflammation. Individuals with evidence of active infection, systemic inflammatory processes, or trauma should not be tested until these conditions have abated. When using HS CRP to assess cardiovascular risk, two measurements should be taken, two weeks apart (averaging results). The CDC/AHA recommended the following HS CRP cut off points (tertiles) for CVD assessment. Adult low risk <1.0 mg/L Average risk 1.0 - 3.0 mg/L High Risk >3.0 mg/L Current interpretive data was last revised on 2018. Blood 02/03/2025 2:17 PM CDT 02/03/2025 2:51 PM CDT Yasmeen Granados MD LAB BLOOD ORDERABLES Final Re sult Performing Organization Address [facility] Co de Phone Number [facility] [place] [address] * DEVICE CHECK - REMOTE (12/04/2024 2:12 AM CAP MACHINE OPERATOR) Anatomical Region Laterality Modality Other 12/04/2024 2:12 AM CAP MACHINE OPERATOR Narrative 01/02/2025 4:38 PM CDT Interpretation Summary: Battery and Leads (BL) Normal parameters noted on battery and lead(s) --- 9.8 yrs remaining longevity. Lead impedance, threshold, and RA sensing trends stable and appropriate. No short V-V intervals. Presenting Rhythm (NH) Atrial Sensing-BiVentricular Pacing (-BiVP) --- /BVP 66 [...] andappropriate. No short V-V intervals. Presenting Rhythm (NH) Atrial Sensing-BiVentricular Pacing (-BiVP) --- /BVP 66 [...] Result * (ABNORMAL) eGFR (08/25/2024 3:15 PM CAP MACHINE OPERATOR) eGFR 56(L) >=60 mL/min/1. 73 m2 Comment: [...] last reviewed 2021. Blood 08/25/2024 3:15 PM CAP MACHINE OPERATOR 08/25/2024 3:26 PM CAP MACHINE OPERATOR Samson Dorado MD LAB BLOOD ORDERABLES Fi nal Result Performing Organization Address [facility]/ZIP Co de Phone Number [facility] Department [place] [address] * POCT lipid panel (05/01/2024 1:11 PM [...] and children were not included. (Diabetes Care 31:4972-1319, 2008). The eAG is not equivalent to a fasting glucose. Blood specimen (specimen) 07/01/2020 8:56 AM CDT 07/01/2020 8:59 AM CDT Richard Varela MD LAB BLOOD ORDERABLES F inal Result [facility] [id number] Department [place] [address] from Last 3 Months or Most Recently Relevant to Health Maintenance Insurance MEDICARE RAILROAD MEDICARE RAILROAD [facility] MEDICARE SUPPLEMENT MEDICARE RAILROAD [facility] Address: [address] [address] [place] [address] [facility] MEDICARE SUPPLEMENT Advance Directives For more information, please contact: [phone] Documents on File Type Date Recorded Patient Tombstone Setter Expl anation ADVANCE DIRECTIVE 08/29/2024 12:42 AM [facility] MECHANIC-FINANCIAL * Full Code (Latest Code Status on File) Date Activated Date Inactivated Comments 08/25/2024 8:33 PM 08/26/2024 7:29 PM * Full Code Date Activated Date Inactivated Comments 07/01/2020 2:32 AM 07/01/2020 6:14 PM Care Teams Helicopter Pilot Instructor Relationship Specialty Start Date End Date Mauricio Shirley DO [address] [place] [address] PCP - General Family Medicine 06/09/20 Torin Prescott MD [address] [facility] [address] [address] Consulting Physician Cardiology 07/01/20
--- OUTSIDE RECORDS SUMMARY | 2025-03-03 15:02 | XMS_ITS | Clinical Summary ---
Author Organization [facility] [employer] Address [address] [place] [address] Care Team Providers Care Power Tool Repairer Name Role Phone Jewel Edmond MD Primary Care Provider [phone] Source Comments [facility] and Associated Physician Practices is amultiple site organization consisting of ambulatory clinics and hospital sitesin [place], [place], [place] and [place]. This disclosure is being madepursuant to the Care Everywhere program and may not contain all information available regarding this patient. 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 OFFICER Gender Identity Not on file Sexual Orientation [...] 7:10 AM CDT Height 157.5 cm (5' 2) 06/28/2015 7:10 AM CDT Body Mass Index 32.01 06/28/2015 7:10 AM CDT Plan of Treatment Health Maintenance Due Date Last Done Comments BONE DENSITY TESTING 1945 HEPATITIS C SCREENING 03/16/1964 DTAP/TDAP/TD VACCINES (1 - Tdap) 1965 PNEUMOCOCCAL VACCINE 50+ (1 of 1 - PCV) 1996 ZOSTER VACCINE (1 of 2) 1996 Respiratory Syncytial Virus (RSV) Vaccine Pt: or over 60 yrs (1 - 1-dose 75+ series) 2021 COVID-19 VACCINE ( - 2023-2 5 season) 2024 DEPRESSION SCREENING 10/08/2024 INFLUENZA VACCINE (Season Ended) 2025 HEPATITIS B VACCINE Aged Out No longe [...] on patient's age to complete this topic Insurance MEDICARE ANTHEM Care Teams Power Tool Repairer Relationship Specialty Start Date End Date Jewel Edmond MD [address] [place] [id number] PCP - General 02/12/15
--- OUTSIDE RECORDS SUMMARY | 2025-03-03 15:02 | XMS_ITS | Encounter Summary ---
Author Organization [facility] Address [address] [place] [address] Phone Care Team Providers Care Electronic Plotting System Operator Name Role Phone Mauricio Shirley DO Primary Care Provider Torin Prescott MD Unavailable Encounter Details Date Type Department Care Team (Late st Contact Info) Description 02/13/2025 Telephone [facility] Cardiology [address] [facility] Advanced Medicine 8th [place] [address] [place] [address] Chance Gilbert MD [address] 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 Ordered 02/03. Thanks! ----- Message ----- From: Clau Ruiz RN Sent: 02/11/2025 12:00 AM CDT To: Clau Ruiz RN [place] 02/03 Echo ordered- scheduled? documented in this encounter Plan of Treatment Not on file documented as of this encounter Visit Diagnoses Not on filedocumented in this encounter Care Teams Electronic Plotting System Operator Relationship Specialty Start Date End Date Mauricio Shirley DO [address] [place] [address] PCP - General Family Medicine 06/09/20 Torin Prescott MD [address] [facility] [address] [address] Consulting Physician Cardiology 07/01/20 documented as of this encounter
--- OUTSIDE RECORDS SUMMARY | 2025-03-03 15:02 | XMS_ITS | Encounter Summary ---
Author Organization [facility] Address [address] [facility] [address] [place] [address] Care Team Providers Care Steel Fabricator Name Role Phone Jewel Edmond MD Primary Care Provider [phone] Mauricio Shirley DO Primary Care Provider Torin Prescott MD Unavailable Encounter Details Date Type Department Care Team (Late st Contact Info) Description 02/15/2017 Orders Only [facility] Provider, MD Isaiah [address] [place] [id number] Social History Tobacco Use Types Packs/Day Years Used Date Smoking Tobacco: Every Day Alcohol Use Standard Drinks/Week Comments No 0 (1 standard drink = 0.6 oz pur e alcohol) Comments Unknown Sex and Gender Information Value Date Recorded Sex Assigned at Not on file Legal Sex Female 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
--- OUTSIDE RECORDS SUMMARY | 2025-03-03 15:02 | XMS_ITS | Clinical Summary ---
Author Organization [facility] Address [address] [place] [phone] Care Team Providers Care Driftman Name Role Phone KandyMauricio thurston Edmonds Primary [...] Prednisone Agitation Low 08/25/2024 Seldane-D Hallucinations Medium Csdpfbn-Gvo-Bjk Reductase Inhibitors Other (See comments) Low 08/25/2024 Aches and pains all over Sulfa Unknown 08/25/2024 Trimethoprim Unknown 08/25/2024 Medications aspirin 81 mg tabletIndications :prevention of thrombosis Take one by mouth one time per day 0 0 05/24/ 009 Active oxybutynin (DITROPAN) 5 mg tabletIndications [...] 1 tablet (25 mg total) by mouth customer solutions coordinator before breakfast 024 Active carvediloL (Coreg) 25 [...] 1 tablet (20 mg total) by mouth customer solutions coordinator before breakfast 30 tablet 4 025 Active furosemide (LASIX) 20 mg tabletIndications :Edema,hypertensi on Take 1 tablet (20 mg total) by mouth customer solutions coordinator before breakfast 024 2024 Discontinued(R eorder) allopurinoL (ZYLOPRIM) 300 mg tabletIndications :prevention of acute gout attack Take 1 tablet (300 mg total) by mouth customer solutions coordinator before breakfast 024 2024 Discontinued(T herapy completed) inclisiran sodium (LEQVIO SUBQ)Indications: cholesterol Inject under the skin every 6 (six) months 2024 Discontinued furosemide (LASIX) 20 mg tabletIndications :Edema,hypertensi on Take 1 tablet (20 mg total) by mouth customer solutions coordinator before breakfast 30 tablet 1 025 2024 Discontinued(R eorder) Active Problems Problem Noted Date Diagnosed Date NYHA class 2 heart failure with reduced ejection fraction 02/02/2025 Coronary artery disease invo [place]ving [place] coronary artery of [place] heart without angina pectoris 02/02/2025 Hypercholesterolemia 08/25/2024 Assessment & Plan (08/25/2024 9:08 PM TECHNICAL TRAINER): On Leqvio outpatient NICM (nonischemic cardiomyopathy) 07/11/2024 Assessment & Plan (08/26/2024 2:49 PM TECHNICAL TRAINER): Patient was referred for COMMUNITY HEALTH EDUCATOR-D upgrade after decline in EF 40-45%-->25-30% despite GDMT as tolerated. Declined ICD in clinic. - Patient complaining of jerking similar to her heart beat after device interrogation and 2v CXR. - touched base with [employer] who explained a lead must also be [...] 2025 Assessment & Plan (08/25/2024 9:06 PM TECHNICAL TRAINER): s/p medtronic dual-chamber PM 05/20/2003 and generator change 06/2020 with consistent >98% v-pacing burden -Now s/p COMMUNITY HEALTH EDUCATOR-D upgrade Visit for wound check 07/02/2020 SOB (shortness of breath) 07/01/2020 Positive cardiac stress test 07/01/2020 Positive D dimer 07/01/2020 Type 2 diabetes mellitus, wi thout long-term current use of insulin 07/01/2020 Assessment & Plan (08/25/2024 9:05 PM TECHNICAL TRAINER): -Resume home metformin on discharge Pulmonary nodules 07/01/2020 Angiomyolipoma of left kidney 07/01/2020 Cardiac resynchronization th erapy pacemaker (COMMUNITY HEALTH EDUCATOR-P) in place 12/19/2017 Overview (08/28/2024): Medtronic Solara BIV Pacemaker. Dx; NICM, CHF, CHB. DOI 08/25/2024-Estrada. Chronic A&V leads 2002. Alhaji. Carelink remote. Assessment & Plan (02/19/2025 2:14 PM CDT): -COMMUNITY HEALTH EDUCATOR-P is functioning appropriately as programmed -Lead impedances, sensing, and thresholds are stable -No programming changes -Continue remote monitoring quarterly -Follow up in 1 year for device check Primary hypertension 07/28/2014 Assessment & Plan (08/25/2024 9:06 PM TECHNICAL TRAINER): -Continue home coreg, losartan, lasix, aldactone Encounters Date Type Department Care Team Description 02/19/2025 2:15 PM CDT Office Visit [facility] Cardiology [address] [place] [address] 8th [place] [address] [place] [address] Julia Obando, SHONDA Cardiac resynchronization therapy pacemaker (COMMUNITY HEALTH EDUCATOR-P) in place (Primary Dx); CHB (complete heart block) (HCC); Complete heart block (HCC); NICM (nonischemic cardiomyopathy) (HCC) 02/19/2025 1:30 PM CDT Ancillary Procedure [facility] Cardiology [address] [place] [address] 8th [place] [address] [place] [address] NICM (nonischemic cardiomyopathy) (HCC) (Primary Dx); CHB (complete heart block) (HCC); Adjustment and management of cardiac pacemaker 02/13/2025 Telephone [facility] Cardiology [address] [place] [address] 8th [place] [address] [place] [address] Chance Gilbert MD 02/09/2025 Telephone [facility] Cardiology [address] [place] [address] Medicine 8th [place] [address] [place] [address] Chance Gilbert MD 02/06/2025 Results Follow-Up [facility] Cardiology [address] [place] [address] [facility] 8th [place] [address] [place] [address] Chance Gilbert MD Apolipoprotein B, serum 02/05/2025 Orders Only [facility] [address] [facility] [place] [address] Yasmeen Granados MD 02/03/2025 2:15 PM CDT Lab [facility] ([facility]) [address] [place] [phone] 02/03/2025 2:00 PM CDT Lab [facility] ([facility]) [address] [place] [phone] NYHA class 2 heart failure with reduced ejection fraction (HCC); Hypercholesterolemia; Complete heart block (HCC); Primary hypertension; Coronary artery disease involving [place] coronary artery of [place] heart without angina pectoris; Cardiac resynchronization therapy pacemaker (COMMUNITY HEALTH EDUCATOR-P) in place 02/03/2025 1:00 PM CDT Office Visit [facility]iology [address] [place] [address] 8th [place] [address] [place] [address] Chance Gilbert MD NYHA class 2 heart failure with reduced ejection fraction (HCC) (Primary Dx); Hypercholesterolemia; Complete heart block (HCC); Primary hypertension; Coronary artery disease involving [place] coronary artery of [place] heart without angina pectoris; Cardiac resynchronization therapy pacemaker (COMMUNITY HEALTH EDUCATOR-P) in place 12/04/2024 Orders Only [facility] Cardiology [facility] Medical Office Building [address] [place] [address] Samson Dorado MD 12/04/2024 Telephone [facility] Cardiology [address] [place] [address] Advanced Medicine 8th [place] [address] [place] [address] Samson Dorado MD from Last 3 Months Surgical History Surgery [...] infa rction; Cause of : Myocardial infarction Heart disease Father Hypertension Father Other Mother Unknown; Cause of : Unknown [...] on file Legal Sex Female 9:24 AM TECHNICAL TRAINER Gender Identity Not on file Sexual Orientation Not on file Obstetrics History Last Filed Vital Signs Vital Sign Reading Time Taken Comments Blood Pressure 115/82 02/19/2025 1:18 PM CDT Pulse 106 02/19/2025 1:18 PM CDT Temperature 37 C (98.6 F) 08/26/2024 9:10 AM TECHNICAL TRAINER Respiratory Rate 16 08/26/2024 9:10 AM TECHNICAL TRAINER Oxygen Saturation 96% 02/19/2025 1:18 PM CDT Inhaled Oxygen Concentration - - Weight 60.7 kg (133 lb 12.8 oz) 02/19/2025 1:18 PM CDT Height 157.5 cm (5' 2) 02/03/2025 12:4 0 PM CDT Body Mass Index 24.47 02/03/2025 12:40 PM CDT Plan of Treatment Health Maintenance Due [...] Visit 65+ 2011 Hemoglobin A1C 12/29/2020 07/01/2020 Lipid Panel 05/01/2025 05/01/2024, 0302/2024, 05/19/2022, Additional history exists Influenza Vaccine (Season Ended) 2025 10/08/19 18 eGFR 08/25/2025 08/25/2024, 07/01/2020 Fall Risk Assessment 08/26/2025 08/26/2024 Medical Devices Implanted Type Area Aquarium Tank Attendant Device Identifier Shelf Expiration Date Model / Serial / Lot Medtronic Inc Attain Stability Quad Mri Surescan Active Fixation Lv Lead 88cm [id number] - [id number] - [id number] Implanted:Qty: 1 on 08/25/2024 by Samson Dorado MD at [facility] Lead Medtronic Inc 04/20/2025 [id number] / [id number] / Pacemaker Implanted:Qty: 3 Pacemaker Left: Chest Wall Medtronic Description:2019 Pacemaker-05/20 Implanted:05/08 (Quantity not on file) Pacemaker Left: Chest Medtronic CHB ADAPTA [id number] / [id number] / CHRONIC LEADS 09/10/03 Medtronic Inc Solara Mri Surescan Bluetooth 46.5x59mm Connector Hole Radiopaque [id number] - [id number] - [id number] Implanted:Qty: 1 on 08/25/2024 by Samson Dorado MD at [facility] Pacemaker Medtronic Inc 09/20/2025 [id number] / [id number] / Procedures Procedure Name Priority Date/Time Associated [...] (HCC) Primary hypertension Coronary artery disease involving [place] coronary artery of [place] heart without angina pectoris Cardiac resynchronization therapy pacemaker (COMMUNITY HEALTH EDUCATOR-P) in place DEVICE CHECK - REMOTE Routine 12/04/2024 2:12 AM TECHNICAL TRAINER EGFR Routine 08/25/2024 3:15 PM TECHNICAL TRAINER POCT LIPID PANEL Routine 05/01/2024 1:11 PM CDT Hyperlipidemia, unspecified hyperlipidemia type Coronary artery disease involving [place] coronary artery of [place] heart without angina pectoris HEMOGLOBIN A1C Routine [...] as advanced age. - References: 1. Barry CALZADA et.al. Eur Heart J. 2006:27:330-337. 2. Ester KELLOGG, Nadine SAEZ. J. AM Lori Cardiol: Cardiovasc Imag. 2009;2: 216- 225. Interpretive Data Last Revised Date: 2018. Blood 02/03/2025 2:17 PM CDT 02/03/2025 2:51 PM CDT us Yasmeen Granados MD LAB BLOOD ORDERABLES Final Re sult [facility] [place] [address] * Apolipoprotein B, serum (02/03/2025 2:17 PM CDT) Pathologist [facility] Apolipoprotein B 65 mg/dL Gomez ref Lab Comment: REFERENCE VALUE Desirable: <90 Above Desirable: 90-99 Borderline high: 100-119 High: 120-139 Very high: > or = 140 Test Performed by: [facility] - [address] [address] Supervisor Bleach Plant: Leana Mccartney Ph.D.; CLIA# [id number] Blood 02/03/2025 2:17 PM CDT 02/03/2025 5:15 PM CDT Chance Gilbert MD LAB BLOOD ORDERABLES Faye l Result Performing Organization Address [facility] de Phone Number REBECCA [facility] [place] [address] [facility] ref Lab * Lipoprotein a (LPa) (02/03/2025 [...] considered a risk enhancing factor by the [place] [employer]. This test has been modified from the photoengraving sketch maker's instructions. Its performance characteristics were determined by [facility] in a manner consistent with CLIA requirements. This test has not been cleared or approved by the U.S. Food and Drug Administration. Test Performed by: [facility] [place] [place] [address] Supervisor Bleach Plant: Leana Mccartney Ph.D.; CLIA# [id number] Blood 02/03/2025 2:17 PM CDT 02/03/2025 5:15 PM CDT Yasmeen Granados MD LAB BLOOD ORDERABLES Final Re sult Performing Organization Address [facility] Co de Phone Number [facility] [place] [address] [facility] ref [facility] * CRP (cardiac risk) (02/03/2025 [...] MD LAB BLOOD ORDERABLES Final Re sult [facility] [place] [address] * DEVICE CHECK - REMOTE (12/04/2024 2:12 AM TECHNICAL TRAINER) Anatomical Region Laterality Modality Other 12/04/2024 2:12 AM TECHNICAL TRAINER Narrative 01/02/2025 4:38 PM CDT Interpretation Summary: Battery and Leads (BL) Normal parameters noted on battery and lead(s) --- 9.8 yrs remaining longevity. Lead impedance, threshold, and RA sensing trends stable and appropriate. No short V-V intervals. Presenting Rhythm (WV) Atrial Sensing-BiVentricular Pacing (-BiVP) --- /BVP 66 [...] andappropriate. No short V-V intervals. Presenting Rhythm (WV) Atrial Sensing-BiVentricular Pacing (-BiVP) --- /BVP 66 [...] Result * (ABNORMAL) eGFR (08/25/2024 3:15 PM TECHNICAL TRAINER) eGFR 56(L) >=60 mL/min/1. 73 m2 Comment: [...] last reviewed 2021. Blood 08/25/2024 3:15 PM TECHNICAL TRAINER 08/25/2024 3:26 PM TECHNICAL TRAINER us Samson Dorado MD LAB BLOOD ORDERABLES Fi nal Result [facility] [place] [address] * POCT lipid panel (05/01/2024 1:11 PM [...] and children were not included. (Diabetes Care 31:5316-3916, 2008). The eAG is not equivalent to a fasting glucose. Blood specimen (specimen) 07/01/2020 8:56 AM CDT 07/01/2020 8:59 AM CDT Richard Varela MD LAB BLOOD ORDERABLES F inal Result RE[facility]CCA [address] [place] [address] from Last 3 Months or Most Recently Relevant to Health Maintenance Insurance MEDICARE RAILROAD MEDICARE RAILROAD [employer]UE [employer]OSS MEDICARE SUPPLEMENT MEDICARE RAILROAD [facility] MEDICARE SUPPLEMENT Advance Directives For more information, please contact: [phone] Documents on File Type Date Recorded Patient Forge Operator Helper Expl anation ADVANCE DIRECTIVE 08/29/2024 12:42 AM POW ER OF ASSISTANT CASINO SHIFT MANAGER-FINANCIAL * Full Code (Latest Code Status on File) Date Activated Date Inactivated Comments 08/25/2024 8:33 PM 08/26/2024 7:29 PM * Full Code Date Activated Date Inactivated Comments 07/01/2020 2:32 AM 07/01/2020 6:14 PM Care Teams Driftman Relationship Specialty Start Date End Date Mauricio Shirley DO [address] [place] [address] PCP - General Family Medicine 06/09/20 Torin Prescott MD [address] [facility] [address] [place] [address] Consulting Physician Cardiology 07/01/20
--- NOTE | 2025-03-03 15:06 | ECHO_ITS ---
Patient Info Name: Lanette Irvin Age: 79 years : 1945 Gender: Female Ht: 62 in Wt: 124 lbs BSA: 1.57 m2 HR: 93 bpm BP: 123 / 90 mmHg Heart Rhythm: Sinus Rhythm Technical Quality: Fair Exam Date: 03/03/2025 3:08 PM Patient Status: O Admit Date: 03/03/2025 Exam Type: CA echo doppler color flow Complete two-dimensional, color flow and Doppler transthoracic echocardiogram is performed. Strength And Conditioning Coach: Hui Cook Summary 1. Complete two-dimensional, color flow and Doppler transthoracic echocardiogram is performed. 2. Left ventricular chamber dimension is normal. 3. Left ventricular systolic function is normal, estimated at 60-65. 4. There is mild concentric increased left ventricular wall thickness. 5. The left ventricular diastolic function is grade I diastolic dysfunction. 6. E/e' 6 is not elevated. 7. Linear artifact in right ventricle suggestive of catheter(s), pacemaker lead(s), or ICD lead(s). 8. Linear artifact in the right atrium suggestive of catheter(s), pacemaker lead(s), or ICD lead(s). 9. There is mild aortic valve sclerosis. 10. There is mild aortic valve regurgitation. 11. The mitral valve has a moderately calcified annulus. 12. There is mild tricuspid valve regurgitation. 13. No pulmonary hypertension, estimated pulmonary arterial systolic pressure is 27 mmHg. Left Ventricle E/e' 6 is not elevated. Left ventricular chamber dimension is normal. Left ventricular systolic function is normal, estimated at 60-65. There is mild concentric increased left ventricular wall thickness. The left ventricular diastolic function is grade I diastolic dysfunction. Right Ventricle Linear artifact in right ventricle suggestive of catheter(s), pacemaker lead(s), or ICD lead(s). Right ventricular chamber dimension is normal. Right ventricular systolic function is normal and with normal TAPSE 1.9 cm. Left Atria Left atrial chamber dimension is normal. Right Atria Linear artifact in the right atrium suggestive of catheter(s), pacemaker lead(s), or ICD lead(s). Right atrial chamber dimension is normal. Aortic Valve The aortic valve is trileaflet. There is mild aortic valve sclerosis. There is no aortic valve stenosis. There is mild aortic valve regurgitation. Pulmonic Valve There is no pulmonic regurgitation. Mitral Valve The mitral valve has a moderately calcified annulus. There is no mitral valve stenosis. There is no mitral valve regurgitation. Tricuspid Valve There is mild tricuspid valve regurgitation. No pulmonary hypertension, estimated pulmonary arterial systolic pressure is 27 mmHg. Pericardium/Pleural There is no pericardial effusion. Inferior Vena Cava Normal inferior vena cava with >50% collapse upon inspiration consistent with normal right atrial pressure, 5 mmHg. Aorta The aortic root size at the sinus of Valsalva is normal. Left Ventricular Outflow Tract Name Value Normal LVOT 2D LVOT Diameter 1.9 cm LVOT Doppler LVOT Peak Velocity 106 cm/s LVOT Peak Gradient 4 mmHg LVOT Mean Gradient 3 mmHg LVOT VTI 19 cm LVOT VTI/AV VTI Ratio 0.7 LVOT Stroke Volume 56 ml LVOT CO 14.1 l/min LVOT CI 9.0 l/min/m2 Mitral Valve Name Value Normal MV Diastolic Function MV E Peak Velocity 56 cm/s MV A Peak Velocity 100 cm/s MV E/A 0.6 MV Decel Time (PW) 253 ms MV Annular TDI MV E/e' (Septal) 4.9 MV E/e' (Lateral) 8.5 MV E/e' (Average) 6.7 Tricuspid Valve Name Value Normal TV Regurgitation Doppler TR Peak Velocity 234 cm/s TR Peak Gradient 22 mmHg Estimated PAP/RSVP RA Pressure 5 mmHg <=5 PA Systolic Pressure 27 mmHg <36 RV Systolic Pressure 27 mmHg <36 TV Annular TDI TV Lateral [place] s' Velocity 10.2 cm/s >=9.5 Aortic Valve Name Value Normal AV Doppler AV Peak Velocity 153 cm/s AV Peak Gradient 9 mmHg AV Mean Gradient 5 mmHg AV VTI 29 cm AV Area (Cont Eq VTI) 1.9 cm2 >=3.0 AV Area (Cont Eq Job) 2.0 cm2 AV DI (Job) 0.69 AV Regurgitation 2D LVOT Area 2.9 cm2 Ventricles Name Value Normal LV Dimensions 2D/MM IVS Diastolic Thickness (2D) 1.1 cm 0.6-1.0 LVID Diastole (2D) 5.0 cm 3.8-5.2 LVIW Diastolic Thickness (2D) 0.8 cm 0.6-0.9 LVID Systole (2D) 3.8 cm 2.2-3.5 LVOT Diameter 1.9 cm LV Mass (2D Cubed) 173.83 g 67.00-162.00 LV Mass Index (2D Cubed) 110 g/m2 43-95 Relative Wall Thickness (2D) 0.32 <=0.42 LV Fractional Shortening/Ejection Fraction 2D/MM LV Fractional Shortening (2D) 23 % 27-45 LV EF (2D Teichholz) 47 % LV Diastolic Volume (4C MOD) 69 ml LV EF (4C MOD) 60 % LV Diastolic Volume (2C MOD) 79 ml LV EF (2C MOD) 58 % LV Diastolic Volume (BP MOD) 76 ml 46-106 LV Diastolic Volume Index (BP MOD) 48 ml/m2 29-61 LV Systolic Volume (BP MOD) 31 ml 14-42 LV Systolic Volume Index (BP MOD) 20 ml/m2 8-24 LV EF (BP MOD) 59 % 54-74 LV Diastolic Length (4C) 7.8 cm LV Systolic Length (4C) 6.6 cm LV Stroke Volume (4C MOD) 41 ml Atria Name Value Normal LA Dimensions LA Volume (4C A-L) 33 ml LA Volume (BP A-L) 37 ml Report Signatures
== END 2025-03-03 14:59 | disposition home or self-care (01) ==
LOC: CHSIMG 15:00
PROVIDERS: PCP Nurse Practitioner Family
DX: I50.20 Unspecified systolic (congestive) heart failure (principal); I08.2 Rheumatic disorders of both aortic and tricuspid valves
CPT/HCPCS: 93306

== ENCOUNTER 2025-05-26 09:04 | Outpatient (CLI) | payer MEDICARE, SELFPAY ==
--- OUTSIDE RECORDS SUMMARY | 2025-05-26 09:27 | XMS_ITS | Clinical Summary ---
Author Organization [facility] Address [facility] [place] [address] Care Team Providers Care Belt Operator Name Role Phone Unavailable Primary Care Provider Unavailabl e Social History Tobacco Use Types Packs/Day Years Used Date Smoking Tobacco: Never Assessed Comments Unknown Sex and Gender Information Value Date Recorded Sex Assigned at Not on file Legal Sex Female 10:45 PM LITERACY SPECIALIST Gender Identity Not on file Sexual Orientation Not on file Plan of Treatment Health Maintenance Due Date Last Done Comments Hepatitis C 1964 DTaP, Tdap and Td Vaccines ( 1 - Tdap) 1965 Pneumococcal Vaccine: 50+ Ye ars (1 of 1 - PCV) 1996 Zoster Vaccines (1 of 2) 1996 Dexa Scan (General) 2011 RSV Immunization or 60+ Years (1 - 1-dose 75+ series) 2021 COVID-19 Vaccine (2023-2 5 season) 2024 Meningococcal B Vaccine Aged Out No l onger eligible based on patient's age to complete this topic Meningococcal Vaccine Aged Out No sean robert eligible based on patient's age to complete this topic RSV Immunizations Under 20 Months Aged Out No longer eligible based on patient's age to complete this topic
--- OUTSIDE RECORDS SUMMARY | 2025-05-26 09:27 | XMS_ITS | Clinical Summary ---
Author Organization [facility] [employer] Address [address] [facility] [place] [address] Care Team Providers Care Developmental Psychologist Name Role Phone Jewel Edmond MD Primary Care Provider [phone] Source Comments [facility] and Associated Physician Practices is amultiple site organization consisting of ambulatory clinics and hospital sitesin [place], [place], [place] and [place]. This disclosure is being madepursuant to the Care Everywhere program and may not contain all information available regarding this patient. Last updated 18.[facility] [employer] Allergies Active Allergy Reactions Criticality Noted Date [...] on file Legal Sex Female 6:09 PM CFO Gender Identity Not on file Sexual Orientation [...] Last Done Comments BONE DENSITY TESTING 1946 DTAP/TDAP/TD VACCINES (1 - Tdap) 1965 PNEUMOCOCCAL VACCINE 50+ (1 of 1 - PCV) 1996 ZOSTER VACCINE (1 of 2) 1996 Respiratory Syncytial Virus (RSV) Vaccine Pt: or over 60 yrs (1 - 1-dose 75+ series) 2021 COVID-19 VACCINE ( - 2023-2 5 season) 2024 DEPRESSION SCREENING 10/08/2024 INFLUENZA VACCINE (#1) 2025 HEPATITIS B VACCINE Aged Out No [...] age to complete this topic Insurance MEDICARE [place] [id number] ANTHEM Care Teams Developmental Psychologist Relationship Specialty Start Date End Date Jewel Edmond MD [address] [place] [id number] PCP - General 02/12/15
--- OUTSIDE RECORDS SUMMARY | 2025-05-26 09:27 | XMS_ITS | Clinical Summary ---
Author Organization [facility] Address [address] [place] [id number] Care Team Providers Care Color Receiver Name Role Phone KandyMauricio thurston Edmonds Primary [...] Prednisone Agitation Low 08/25/2024 Seldane-D Hallucinations Medium Wwztazk-Qwv-Aak Reductase Inhibitors Other (See comments) Low 08/25/2024 [...] times a day with meals 0 Active spironolactone (ALDACTONE) 25 mg tabletIndications: hypertension Take 1 tablet (25 mg total) by mouth electrical helper before breakfast 4 Active carvediloL (Coreg) 25 mg tabletIndications: Nonischemic cardiomyopathy (HCC) Take 0.5 tablets (12.5 mg total) by mouth 2 (two) times a day with meals 4 Active losartan (COZAAR) 25 mg tablet TAKE ONE TABLET BY MOUTH DAILY 90 tablet 4 Active lutein 20 mg capsuleIndications :supplement Take 1 capsule (20 mg total) by mouth 2 (two) times a week 4 Active UNABLE TO FIND Weem gummy twice daily Active UNABLE TO FIND Garlique once daily Active triamcinolone (NASACORT) 55 mcg nasal inhaler Administer 2 sprays into each nostril as needed for rhinitis Active loratadine (CLARITIN) 10 mg tablet Take 1 tablet (10 mg total) by mouth daily Active furosemide (LASIX) 20 mg tabletIndications: Edema,hypertension Take 1 tablet (20 mg total) by mouth electrical helper before breakfast 30 tablet 4 5 Active magnesium oxide 400 mg magnesium capsule Take 400 mg by mouth electrical helper before breakfast Active Active Problems Problem Noted Date Diagnosed Date NYHA class 2 heart failure with reduced ejection fraction 02/02/2025 Coronary artery disease invo lving petersburg coronary artery of [place]etersburg heart without angina pectoris 02/02/2025 Assessment & Plan (05/12/2025 1:41 PM CDT): Coronary CTA with moderate coronary artery disease. FFR CT results showing no hemodynamically significant lesions. She denies any anginal symptoms. Continue aspirin 81 mg daily. Intolerant to statins. Will repeat fasting lipid panel. Hypercholesterolemia 08/25/2024 Assessment & Plan (08/25/2024 9:08 PM SUMMER CAMP COUNSELOR): On Leqvio SQ outpatient NICM (nonischemic cardiomyopathy) 07/11/2024 Assessment & Plan (05/12/2025 1:42 PM CDT): Nonischemic cardiomyopathy with improved ejection fraction. Etiology thought to be due to pacing and was upgraded to HYDROLOGIC MODELER-P. Echocardiogram from February of this year with ejection fraction of 60-65 %. She is endorsing NYHA class 1 symptoms. Euvolemic upon examination. Continue current regimen with spironolactone 25 mg daily, losartan 25 mg daily and carvedilol 12.5 mg b.i.d.. Continue Lasix 20 mg daily for volume management. Of note, Entresto and SGLT2i were cost prohibitive. Assessment & Plan (08/26/2024 2:49 PM SUMMER CAMP COUNSELOR): Patient was referred for HYDROLOGIC MODELER-D upgrade after decline in EF 40-45%-->25-30% despite GDMT as tolerated. Declined ICD in clinic. - Patient complaining of jerking similar to her heart beat after device interrogation and 2v CXR. - touched base with Mclowd who explained a lead must also be [...] 2025 Assessment & Plan (08/25/2024 9:06 PM SUMMER CAMP COUNSELOR): s/p medtronic dual-chamber PM 05/20/2003 and generator change 06/2020 with consistent >98% v-pacing burden -Now s/p HYDROLOGIC MODELER-D upgrade Visit for wound check 07/02/2020 SOB (shortness of breath) 07/01/2020 Positive cardiac stress test 07/01/2020 Positive D dimer 07/01/2020 Type 2 diabetes mellitus, wi thout long-term current use of insulin 07/01/2020 Assessment & Plan (08/25/2024 9:05 PM SUMMER CAMP COUNSELOR): -Resume home metformin on discharge Pulmonary nodules 07/01/2020 Angiomyolipoma of left kidney 07/01/2020 Cardiac resynchronization th erapy pacemaker (HYDROLOGIC MODELER-P) in place 12/19/2017 Overview (08/28/2024): Medtronic Solara BIV Pacemaker. Dx; NICM, CHF, CHB. DOI 08/25/2024-Estrada. Chronic A&V leads 2002. Alhaji. Carelink remote. Assessment & Plan (02/19/2025 2:14 PM CDT): -HYDROLOGIC MODELER-P is functioning appropriately as programmed -Lead impedances, sensing, and thresholds are stable -No programming changes -Continue remote monitoring quarterly -Follow up in 1 year for device check Primary hypertension 07/28/2014 Assessment & Plan (05/12/2025 1:38 PM CDT): Well controlled. Continue current regimen with carvedilol 12.5 mg b.i.d., losartan 25 mg daily and spironolactone 25 mg daily. Will repeat BMP today to ensure stable kidney function. Assessment & Plan (08/25/2024 9:06 PM SUMMER CAMP COUNSELOR): -Continue home coreg, losartan, lasix, aldactone Encounters Date Type Department Care Team Description 05/13/2025 Results Follow-Up [facility] [address] [facility] 8th [place] [address] [place] [address] Dwight De La Rosa NP Lipid panel, Basic metabolic panel, eGFR 05/12/2025 1:50 PM CDT Lab [facility] [address] [place] [address] Coronary artery disease involving petersburg coronary artery of petersburg heart without angina pectoris; Primary hypertension 05/12/2025 1:00 PM CDT Office Visit [facility] [address] [facility] 8th [place] [address] [place] [address] Dwight De La Rosa NP NICM (nonischemic cardiomyopathy) (HCC) (Primary Dx); Coronary artery disease involving petersburg coronary artery of petersburg heart without angina pectoris; Primary hypertension 03/06/2025 Orders Only [facility] [address] [facility] [address] [facility] [address] [place] [address] Samson Dorado MD from Last 3 Months [...] on file Legal Sex Female 9:24 AM SUMMER CAMP COUNSELOR Gender Identity Not on file Sexual Orientation Not on file Obstetrics History Last Filed Vital Signs Vital Sign Reading Time Taken Comments Blood Pressure 109/74 05/12/2025 12:53 PM CDT Pulse 93 05/12/2025 12:53 PM CDT Temperature 37 C (98.6 F) 08/26/2024 9:10 AM SUMMER CAMP COUNSELOR Respiratory Rate 16 08/26/2024 9:10 AM SUMMER CAMP COUNSELOR Oxygen Saturation 96% 05/12/2025 12:53 PM CDT Inhaled Oxygen Concentration - - Weight 60.6 kg (133 lb 9.6 oz) 05/12/2025 12:53 PM CDT Height 157.5 cm (5' 2) 05/12/2025 12:53 PM CDT Body Mass Index 24.44 05/12/2025 12:53 PM CDT Plan of Treatment Health Maintenance [...] Hemoglobin A1C 12/29/2020 07/01/2020 Influenza Vaccine (#1) 2025 10/08/2017 Fall Risk Assessment 08/26/2025 08/26/2024 Lipid Panel 05/12/2026 05/12/2025, 0702/2024, 12/31/2023, Additional history exists eGFR 05/12/2026 05/12/2025, 08/08, 07/01/2020 Medical Devices Implanted Type Area Ict Support Engineer Device Identifier Shelf Expiration Date Model / Serial / Lot Medtronic Inc Attain Stability Quad Mri Surescan Active Fixation Lv Lead 88cm [id number] - [id number] - [id number] Implanted:Qty: 1 on 08/25/2024 by Samson Dorado MD at [facility] Lead Medtronic Inc 04/20/2025 [id number] / [id number] / Pacemaker Implanted:Qty: 3 Pacemaker Left: Chest Wall Medtronic Description:2019 Pacemaker-05/20 Implanted:05/08 (Quantity not on file) Pacemaker Left: Chest Medtronic CHB ADAPTA [id number] / [id number] / CHRONIC LEADS 09/10/03 Medtronic Inc Solara Mri Surescan Bluetooth 46.5x59mm Connector Hole Radiopaque [id number] - [id number] - [id number] Implanted:Qty: 1 on 08/25/2024 by Samson Dorado MD at [facility] Pacemaker Medtronic Inc 09/20/2025 [id number] / [id number] / Procedures Procedure Name Priority Date/Time Associated Diagnosis Comments EGFR Routine 05/12/2025 1:52 PM CDT Primary hypertension BASIC METABOLIC PANEL Routine 05/12/2025 1:52 PM CDT Primary hypertension LIPID PANEL Routine 05/12/2025 1:52 PM CDT Coronary artery disease involving petersburg coronary artery of petersburg heart without angina pectoris DEVICE CHECK - REMOTE Routine 03/06/2025 6:23 AM CDT HEMOGLOBIN A1C Routine 07/01/2020 8:56 AM CDT from Last 3 Months or Most Recently Relevant to Health Maintenance Results * (ABNORMAL) eGFR (05/12/2025 1:52 PM CDT) eGFR 44(L) >=60 mL/min/1. 73 m2 Comment: Interpretive Data [...] interpretive data was last reviewed 2021. Blood 05/12/2025 1:52 PM CDT 05/12/2025 2:31 PM CDT us Dwight De La Rosa NP LAB BLOOD ORDERABLES Fin al Result [facility] Department [place] [address] * (ABNORMAL) Lipid panel (05/12/2025 1:52 PM CDT) Cholesterol 115 30 - 199 mg/dL Comment: Interpretive Data Ages < or = 19 years Acceptable: <170 mg/dL Borderline high: 170-199 mg/dL High: >or= 200 mg/dL Ages > or = 20 years Desirable: <200 mg/dL Borderline high: 200-239 mg/dL High: >or= 240 mg/dL Literature References: 1. Expert Panel on Integrated Guidelines for Cardiovascular Health and Risk Reduction in Children and Adolescents. Pediatrics 2011;128:S213 2. NCEP Expert Panel. Circulation 2004;110:227 Current Interpretive Data was last revised on 2018. Triglycerides 124 <=149 mg/dL [facility] Comment: Interpretive Data Ages < or = 9 years Acceptable: <75 mg/dL Borderline high: 75-99 mg/dL High: >or= 100 mg/dL Ages 10 to 20 years Acceptable: <90 mg/dL Borderline high: 90-129 mg/dL High: >or= 130 mg/dL Ages > or = 20 years Desirable: <150 mg/dL Borderline high: 150-199 mg/dL High: 200-499 mg/dL Very high: >or= 499 mg/dL Literature References: 1. Expert Panel on Integrated Guidelines for Cardiovascular Health and Risk Reduction in Children and Adolescents. Pediatrics 2011;128:S213 2. NCEP Expert Panel. Circulation 2004;110:227 Current Interpretive Data was last revised on 2018. HDL 36(L) >=40 mg/dL [facility] Comment: Interpretive Data Ages < or = 19 years Acceptable: >45 mg/dL Borderline low: 40-45 mg/dL Low: <40 mg/dL Ages > or = 20 years Desirable: >or= 60 mg/dL Low: <40 mg/dL Literature References: 1. Expert Panel on Integrated Guidelines for Cardiovascular Health and Risk Reduction in Children and Adolescents. Pediatrics 2011;128:S213 2. NCEP Expert Panel. Circulation 2004;110:227 Current Interpretive Data was last revised on 2018. LDL, calculated 57 <=129 mg/dL [facility] Comment: Interpretive Data Ages < or = 19 years Acceptable: <110 mg/dL Borderline high: 110-129 mg/dL High: >or= 130 mg/dL Ages > or = 20 years Optimal: <100 mg/dL Near optimal: 100-129 mg/dL Borderline high: 130-159 mg/dL High: >160 mg/dL Calculated using the Obey LDL-C estimating equation. This equation was implemented on 2024. Prior to this date LDL-C was estimated using the Friedewald equation. Literature References: 1. Expert Panel on Integrated Guidelines for Cardiovascular Health and Risk Reduction in Children and Adolescents. Pediatrics 2011;128:S213 2. NCEP Expert Panel. Circulation 2004;110:227 3. Obey Atkinson et al. NORMA Cardiol. 2019February 05;5(5):540-548. doi: 10.1001/jamacardio.2020.0013 Current Interpretive Data was last revised on 2024. Non-HDL Cholesterol 79 mg/dL [facility] Comment: Interpretive Data Ages < or = 19 years Acceptable: <120 mg/dL Borderline high: 120-144 mg/dL High: >145 mg/dL Ages > or = 20 years When triglycerides are >200 mg/dL, Non-HDL cholesterol is a secondary target of therapy with treatment goals that are 30 mg/dL greater than the LDL cholesterol target. Literature References: 1. Expert Panel on Integrated Guidelines for Cardiovascular Health and Risk Reduction in Children and Adolescents. Pediatrics 2011;128:S213 2. NCEP Expert Panel. Circulation 2004;110:227 Current Interpretive Data was last revised on 2018. Chol/HDL ratio 3 [facility] Blood 05/12/2025 1:52 PM CDT 05/12/2025 2:17 PM CDT Dwight De La Rosa NP LAB BLOOD ORDERABLES Fin al Result [facility] Department [place] [address] * (ABNORMAL) Basic metabolic panel (05/12/2025 1:52 PM CDT) Pathologist [facility] Sodium 143 135 - 145 mmol/L Potassium, pl 3.8 3.3 - 4.9 mmol/L [facility] Chloride 100 97 - 110 mmol/L [facility] CO2 31 22 - 32 mmol/L [facility] Anion gap 12 2 - 15 mmol/L [facility] BUN 23 6 - 25 mg/dL [facility] Creatinine 1.24(H) 0.60 - 1.10 mg/dL [facility] Glucose 102 70 - 199 mg/dL [facility] Comment: Interpretive Data Fasting glucose >/= 126 mg/dl is diagnostic for diabetes. Fasting is defined as no caloric intake for at least 8 hours. Fasting glucose between 100 mg/dl to 125 mg/dl is diagnostic of prediabetes. In a patient with classic symptoms of hyperglycemia or hyperglycemic crisis, a random glucose >/= 200 mg/dl is diagnostic for diabetes. In the absence of unequivocal hyperglycemia, results should be confirmed by repeat testing. The classification and Diagnosis of Diabetes Diabetes Care 2021; 46: S19-S40. Current interpretive data was last revised 2022. Calcium 9.8 8.5 - 10.3 mg/dL [facility] Blood 05/12/2025 1:52 PM CDT 05/12/2025 2:17 PM CDT Dwight De La Rosa NP LAB BLOOD ORDERABLES Fin al Result [facility] Department [place] [address] * DEVICE CHECK - REMOTE (03/06/2025 6:23 AM CDT) Anatomical Region Laterality Modality Other 03/06/2025 6:23 AM CDT Narrative 03/19/2025 9:26 AM CDT Interpretation Summary: Battery and Leads (BL) Normal parameters noted on battery and lead(s) --- 9.4 yrs remaining longevity. Lead impedance, threshold, and RA sensing trends stable and appropriate. No short V-V intervals. Presenting Rhythm (OR) Atrial Sensing-BiVentricular Pacing (-BiVP) --- /BVP 60s. Arrhythmic events (AE) No new arrhythmic events in monitoring period --- Since 02/19/25: No AHR or VHR episodes. Miscellaneous Observations (MISC) Pacing dependence in the Ventricle Transmission Information (TI) Device Summary Report Follow Up (FU) Patient's primary treating physician will be apprised of findings Procedure Note Samson Dorado MD - 03/19/2025 Interpretation Summary: Battery and Leads (BL) Normal parameters noted on battery and lead(s) --- 9.4 yrs remaininglongevity. Lead impedance, threshold, and RA sensing trends stable andappropriate. No short V-V intervals. Presenting Rhythm (OR) Atrial Sensing-BiVentricular Pacing (-BiVP) --- /BVP 60s. Arrhythmic events (AE) No new arrhythmic events in monitoring period --- Since 02/19/25: No AHRor VHR episodes. Miscellaneous Observations (MISC) Pacing dependence in the Ventricle Transmission Information (TI) Device Summary Report Follow Up (FU) Patient's primary treating physician will be apprised of findings us Samson Dorado MD [facility] PRO CEDURES Final Result * (ABNORMAL) Hemoglobin A1c (07/01/2020 8:56 [...] and children were not included. (Diabetes Care 31:7267-2222, 2008). The eAG is not equivalent to a fasting glucose. Blood specimen (specimen) 07/01/2020 8:56 AM CDT 07/01/2020 8:59 AM CDT Richard Varela MD LAB BLOOD ORDERABLES F inal Result [facility] [address] [address] [place] [address] from Last 3 Months or Most Recently Relevant to Health Maintenance Insurance MEDICARE RAILROAD MEDICARE [employer]RO[employer] BLUE CROSS MEDICARE SUPPLEMENT MEDICARE [place]ILRO[place] BLUE CROSS MEDICARE SUPPLEMENT Advance Directives For more information, please contact: [phone] Documents on File Type Date Recorded Patient Machine Room Engineer Expl anation ADVANCE DIRECTIVE 08/29/2024 12:42 AM POW ER OF FIELD RECRUITER-FINANCIAL * Full Code (Latest Code Status on File) Date Activated Date Inactivated Comments 08/25/2024 8:33 PM 08/26/2024 7:29 PM * Full Code Date Activated Date Inactivated Comments 07/01/2020 2:32 AM 07/01/2020 6:14 PM Care Teams Color Receiver Relationship Specialty Start Date End Date Mauricio Shirley DO [address] [place] [address] PCP - General Family Medicine 06/09/20 Torin Prescott MD [address] [place] [address] Consulting Physician Cardiology 07/01/20
--- OUTSIDE RECORDS SUMMARY | 2025-05-26 09:27 | XMS_ITS | Encounter Summary ---
Author Organization [facility] Address [address] [facility] [address] [place] [address] Care Team Providers Care Leaf Tinner Name Role Phone Jewel Edmond MD Primary Care Provider [phone] Mauricio Shirley DO Primary Care Provider Torin Prescott MD Unavailable Encounter Details Date Type Department Care Team (Late st Contact Info) Description 11/08/2016 Orders Only [facility] ProviderIsaiah MD [address] [place] [address] Social History Tobacco Use Types Packs/Day Years Used Date Smoking Tobacco: Every Day Alcohol Use Standard Drinks/Week Comments No 0 (1 standard drink = 0.6 oz pur e alcohol) Comments Unknown Sex and Gender Information Value Date Recorded Sex Assigned at Not on file Legal Sex Female 9:24 AM QA AUTOMATION DEVELOPER Gender Identity Not on file Sexual Orientation [...] on filedocumented in this encounter Care Teams Leaf Tinner Relationship Specialty Start Date End Date Jewel Edmond MD [address] [phone] PCP - General 01/30/13 06/08/20 Mauricio Shirley DO [address] [place] [address] PCP - General Family Medicine 06/09/20 Torin Prescott MD [address] [place] [address] Consulting Physician Cardiology 07/01/20 documented as of this encounter
--- OUTSIDE RECORDS SUMMARY | 2025-05-26 09:27 | XMS_ITS | Encounter Summary ---
Author Organization [facility] Address [address] [facility] [address] [place] [address] Care Team Providers Care Catering Convention Services Manager Name Role Phone Jewel Edmond MD Primary Care Provider [phone] Mauricio Shirley DO Primary Care Provider Torin Prescott MD Unavailable Encounter Details Date Type Department Care Team (Late st Contact Info) Description 02/15/2017 Orders Only [facility] Provider, MD Isaiah [address] [place] [address] Social History Tobacco Use Types Packs/Day Years Used Date Smoking Tobacco: Every Day Alcohol Use Standard Drinks/Week Comments No 0 (1 standard drink = 0.6 oz pur e alcohol) Comments Unknown Sex and Gender Information Value Date Recorded Sex Assigned at Not on file 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
[2025-05-26 10:08] LABS: Anion Gap 9 mmol/L (4-12); Blood Urea Nitrogen 24 mg/dL (7-17); Calcium 10.4 mg/dL (8.4-10.2); Carbon Dioxide 29 mmol/L (22-30); Chloride 103 mmol/L (98-107); Estimated Glomerular Filt Rate 44; Glucose 106 mg/dL (65-110); Osmolality Calculated 296 mOsm/kg (285-295); Potassium 4.4 mmol/L (3.4-5.0); Sodium 141 mmol/L (137-145)
== END 2025-05-26 09:05 | disposition home or self-care (01) ==
LOC: CHSLAB 09:07
PROVIDERS: PCP Nurse Practitioner Family
DX: R79.89 Other specified abnormal findings of blood chemistry (principal)
CPT/HCPCS: 36415; 80048

== ENCOUNTER 2025-07-20 15:17 | Outpatient (CLI) | payer MEDICARE, SELFPAY ==
--- NOTE | ~2025-07-20 | XR_ITS ---
EXAMINATION: XR foot RT min 3V, 07/20/2025 15:30 CDT HISTORY: M79.671 - Pain in right foot COMPARISON: No comparisons available. Findings: No acute fracture or malalignment. Moderate degenerative changes of the first metatarsal phalangeal joint Soft tissues unremarkable. Impression: No acute fracture or malalignment. Reviewed, dictated and finalized at location P. Impression: No acute fracture or malalignment.
[2025-07-20 15:48] LABS: Uric Acid 10.5 mg/dL (2.5-7.5)
--- OUTSIDE RECORDS SUMMARY | 2025-07-20 16:01 | XMS_ITS | Encounter Summary ---
Author Organization [facility] Address [address] [facility] [address] [place] [address] Care Team Providers Care Telephone Advice Nurse Name Role Phone Jewel Edmond MD Primary Care Provider [phone] Mauricio Shirley DO Primary Care Provider Torin Prescott MD Unavailable Encounter Details Date Type Department Care Team (Late st Contact Info) Description 02/15/2017 Orders Only [facility] Provider, MD Isaiah [address] [place] [address] Social History Tobacco Use Types Packs/Day Years Used Date Smoking Tobacco: Every Day Alcohol Use Standard Drinks/Week Comments No 0 (1 standard drink = 0.6 oz pur e alcohol) Comments Unknown Sex and Gender Information Value Date Recorded Sex Assigned at Not on file Legal Sex Female 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
--- OUTSIDE RECORDS SUMMARY | 2025-07-20 16:01 | XMS_ITS | Clinical Summary ---
Author Organization [facility] Address [address] [place] [id number] Care Team Providers Care Cardiovascular Surgeon Name Role Phone KandyMauricio thurston Edmonds Primary [...] Prednisone Agitation Low 08/25/2024 Seldane-D Hallucinations Medium Gesjheq-Tsn-Tsa Reductase Inhibitors Other (See comments) Low 08/25/2024 [...] 1 tablet (25 mg total) by mouth cardiac cath lab radiology technologist before breakfast 4 Active carvediloL (Coreg) 25 [...] 1 tablet (20 mg total) by mouth cardiac cath lab radiology technologist before breakfast 30 tablet 4 5 Active magnesium oxide 400 mg magnesium capsule Take 400 mg by mouth cardiac cath lab radiology technologist before breakfast Active Active Problems Problem Noted Date Diagnosed Date 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 FFR CT results showing no hemodynamically significant lesions. She denies any anginal symptoms. Continue aspirin 81 mg daily. Intolerant to statins. Will repeat fasting lipid panel. Hypercholesterolemia 08/25/2024 Assessment & Plan (08/25/2024 9:08 PM ASSEMBLER RUBBER FOOTWEAR): On Leqvio SQ outpatient NICM (nonischemic cardiomyopathy) 07/11/2024 Assessment & Plan (05/12/2025 1:42 PM CDT): Nonischemic cardiomyopathy with improved ejection fraction. Etiology thought to be due to pacing and was upgraded to VMWARE ENGINEER-P. Echocardiogram from February of this year with ejection fraction of 60-65 %. She is endorsing NYHA class 1 symptoms. Euvolemic upon examination. Continue current regimen with spironolactone 25 mg daily, losartan 25 mg daily and carvedilol 12.5 mg b.i.d.. Continue Lasix 20 mg daily for volume management. Of note, Entresto and SGLT2i were cost prohibitive. Assessment & Plan (08/26/2024 2:49 PM ASSEMBLER RUBBER FOOTWEAR): Patient was referred for VMWARE ENGINEER-D upgrade after decline in EF 40-45%-->25-30% despite GDMT as tolerated. Declined ICD in clinic. - Patient complaining of jerking similar to her heart beat after device interrogation and 2v CXR. - touched base with NPC III who explained a lead must also be [...] 2025 Assessment & Plan (08/25/2024 9:06 PM ASSEMBLER RUBBER FOOTWEAR): s/p medtronic dual-chamber PM 05/20/2003 and generator change 06/2020 with consistent >98% v-pacing burden -Now s/p VMWARE ENGINEER-D upgrade Visit for wound check 07/02/2020 SOB (shortness of breath) 07/01/2020 Positive cardiac stress test 07/01/2020 Positive D dimer 07/01/2020 Type 2 diabetes mellitus, wi thout long-term current use of insulin 07/01/2020 Assessment & Plan (08/25/2024 9:05 PM ASSEMBLER RUBBER FOOTWEAR): -Resume home metformin on discharge Pulmonary nodules 07/01/2020 Angiomyolipoma of left kidney 07/01/2020 Cardiac resynchronization th erapy 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 Dx; NICM, CHF, CHB. DOI 08/25/2024-Estrada. Chronic A&V leads 2002. Alhaji. Carelink remote. Assessment & Plan (02/19/2025 2:14 PM CDT): -VMWARE ENGINEER-P is functioning appropriately as programmed -Lead impedances, [...] function. Assessment & Plan (08/25/2024 9:06 PM ASSEMBLER RUBBER FOOTWEAR): -Continue home coreg, losartan, lasix, aldactone Encounters Date Type Department Care Team Description 06/05/2025 Orders Only [facility] Medicine Cardiology [address] [facility] [address] [place] [address] Samson Dorado MD 05/26/2025 Orders Only [facility] Scanning, Provider 05/13/2025 Results Follow-Up [facility] [address] [facility] 8th [place] [address] [place] [phone] Dwight De La Rosa NP Lipid panel, Basic metabolic panel, eGFR 05/12/2025 1:50 PM CDT Lab [facility] [address] [place] [phone] Coronary artery disease involving bad river band coronary artery of bad river band heart without angina pectoris; Primary hypertension 05/12/2025 1:00 PM CDT Office Visit [facility] Medicine Cardiology [address] [facility] 8th [place] [address] [place] [address] Dwight De La Rosa, SHONDA NICM (nonischemic cardiomyopathy) (HCC) (Primary Dx); Coronary artery disease involving bad river band coronary artery of bad river band heart without angina pectoris; Primary hypertension from Last 3 Months Surgical History Surgery [...] sis of adhesions, right robot-marcy Diabetes mellitus Positive cardiac stress test Family History Medical [...] on file Legal Sex Female 9:24 AM ASSEMBLER RUBBER FOOTWEAR Gender Identity Not on file Sexual Orientation Not on file Obstetrics History Last Filed Vital Signs Vital Sign Reading Time Taken Comments Blood Pressure 109/74 05/12/2025 12:53 PM CDT Pulse 93 05/12/2025 12:53 PM CDT Temperature 37 C (98.6 F) 08/26/2024 9:10 AM ASSEMBLER RUBBER FOOTWEAR Respiratory Rate 16 08/26/2024 9:10 AM ASSEMBLER RUBBER FOOTWEAR Oxygen Saturation 96% 05/12/2025 12:53 PM CDT [...] Assessment 08/26/2025 08/26/2024 Lipid Panel 05/12/2026 05/12/2025, 07/02/2024, 12/31/2023, Additional history exists eGFR 05/12/2026 05/12/2025, 08/08, 07/01/2020 Medical Devices Implanted Type Area Building Construction Supervisor Device Identifier Shelf Expiration Date Model / Serial / Lot Medtronic Inc Attain Stability Quad Mri Surescan Active Fixation Lv Lead 88cm [id number] - [id number] - [id number] Implanted:Qty: 1 on 08/25/2024 by Samson Dorado MD at [facility] Lead Medtronic Inc 04/20/2025 [id number] / [id number] / Pacemaker Implanted:Qty: 3 Pacemaker Left: Chest Wall Medtronic Description:2019 Pacemaker-05/20 Implanted:05/08 (Quantity not on file) Pacemaker Left: Chest Medtronic CHB ADAPTA [id number] / [id number] / CHRONIC LEADS 09/10/03 Medtronic Inc Solara Mri Surescan Bluetooth 46.5x59mm Connector Hole Radiopaque [id number] - [id number] - [id number] Implanted:Qty: 1 on 08/25/2024 by Samson Dorado MD at [facility] Pacemaker Medtronic Inc 09/20/2025 [id number] / [id number] / Procedures Procedure Name Priority Date/Time Associated Diagnosis Comments DEVICE CHECK - REMOTE Routine 06/05/2025 7:55 AM CDT SCAN - LABS 05/26/2025 EGFR Routine 05/12/2025 1:52 PM CDT Primary hypertension BASIC METABOLIC PANEL Routine 05/12/2025 1:52 PM CDT Primary hypertension LIPID PANEL Routine 05/12/2025 1:52 PM CDT Coronary artery disease involving bad river band coronary artery of bad river band heart without angina pectoris HEMOGLOBIN A1C Routine 07/01/2020 8:56 AM CDT from Last 3 Months or Most Recently Relevant to Health Maintenance Results * DEVICE CHECK - REMOTE (06/05/2025 7:55 AM CDT) Anatomical Region Laterality Modality Other 06/05/2025 7:55 AM CDT Narrative 06/11/2025 1:11 AM CDT Interpretation Summary: Battery and Leads (BL) Normal parameters noted on battery and lead(s) --- 9.4 yrs remaining longevity (implanted 2023). Lead impedance, threshold, and RA sensing trends stable and appropriate. No short V-V intervals. Presenting Rhythm (WI) Atrial Sensing-BiVentricular Pacing (-BiVP) --- /BVP 61 bpm. Arrhythmic events (AE) No new arrhythmic events in monitoring period --- Since 03/06/25: No AHR or VHR episodes. Miscellaneous Observations (MISC) Pacing dependence in the Ventricle Transmission Information (TI) Device Summary Report Follow Up (FU) Patient's primary treating physician will be apprised of findings Procedure Note Samson Dorado MD - 06/11/2025 Interpretation Summary: Battery and Leads (BL) Normal parameters noted on battery and lead(s) --- 9.4 yrs remaininglongevity (implanted 2023). Lead impedance, threshold, and RA sensingtrends stable and appropriate. No short V-V intervals. Presenting Rhythm (WI) Atrial Sensing-BiVentricular Pacing (-BiVP) --- /BVP 61 bpm. Arrhythmic events (AE) No new arrhythmic events in monitoring period --- Since 03/06/25: No AHRor VHR episodes. Miscellaneous Observations (MISC) Pacing dependence in the Ventricle Transmission Information (TI) Device Summary Report Follow Up (FU) Patient's primary treating physician will be apprised of findings Samson Dorado MD [facility] PRO CEDURES Final Result * SCAN - LABS (05/26/2025) Provider Scanning Final Result * (ABNORMAL) eGFR (05/12/2025 1:52 PM CDT) [...] ORDERABLES Fin al Result [facility] Department [place] [address] * (ABNORMAL) Lipid panel (05/12/2025 1:52 PM [...] on 2018. HDL 36(L) >=40 mg/dL [facility] Comment: Interpretive Data Ages < or = [...] 2018. LDL, calculated 57 <=129 mg/dL [facility] Comment: Interpretive Data Ages < or = [...] on 2024. Non-HDL Cholesterol 79 mg/dL [facility] Comment: Interpretive Data Ages < or = [...] last revised on 2018. Chol/HDL ratio 3 [facility] Blood 05/12/2025 1:52 PM CDT 05/12/2025 2:17 PM CDT Dwight De La Rosa NP LAB BLOOD ORDERABLES Fin al Result Performing Organization Address [facility] Co de Phone Number [facility] Department [place] [address] * (ABNORMAL) Basic metabolic panel (05/12/2025 1:52 PM CDT) [facility] Sodium 143 135 - 145 mmol/L Potassium, pl 3.8 3.3 - 4.9 mmol/L [facility] Chloride 100 97 - 110 mmol/L [facility] CO2 31 22 - 32 mmol/L [facility] Anion gap 12 2 - 15 mmol/L [facility] BUN 23 6 - 25 mg/dL [facility] Creatinine 1.24(H) 0.60 - 1.10 mg/dL [facility] Glucose 102 70 - 199 mg/dL [facility] Comment: Interpretive Data Fasting glucose >/= 126 [...] 2022. Calcium 9.8 8.5 - 10.3 mg/dL [facility] Blood 05/12/2025 1:52 PM CDT 05/12/2025 2:17 PM CDT Dwight De La Rosa NP LAB BLOOD ORDERABLES Fin al Result Performing Organization Address [facility] Co de Phone Number [facility] Department [place] [address] * (ABNORMAL) Hemoglobin A1c (07/01/2020 8:56 AM CDT) Hgb A1C 7.2(H) 4.0 - 5.6 % [facility] Estimated Average Glucose 160 mg/dL [facility] Comment: The ADA recommends reporting an estimated Average Glucose (eAG) with all Hemoglobin A1c results using the equation derived from a study of 507 normal and diabetic adults. Minority populations were underrepresented and children were not included. (Diabetes Care 31:8110-2828, 2008). The eAG is not equivalent to a fasting glucose. Blood specimen (specimen) 07/01/2020 8:56 AM CDT 07/01/2020 8:59 AM CDT Richard Varela MD LAB BLOOD ORDERABLES F inal Result Performing Organization Address [facility] Co de Phone Number [facility] [phone] [address] Department [place] [address] from Last 3 Months or Most Recently Relevant to Health Maintenance Insurance MEDICARE RAILROAD MEDICARE RAILROAD [address] MEDICARE SUPPLEMENT MEDICARE RAILROAD [address] MEDICARE SUPPLEMENT Member Subscriber Plan / Payer ( fective 2022-) Name:Lanette Ely Relation to Subscriber:Self Name:Lanette Ely Payer ID:[id number] Group ID:[id number] Type:COMMERCIAL Address: [facility] [id number] [place] [id number] Advance Directives For more information, please contact: [phone] Documents on File Type Date Recorded 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 Expl anation ADVANCE DIRECTIVE 08/29/2024 12:42 AM POW ER OF BEHAVIORAL INSTRUCTOR-FINANCIAL * Full Code (Latest Code Status on File) Date Activated Date Inactivated Comments 08/25/2024 8:33 PM 08/26/2024 7:29 PM * Full Code Date Activated Date Inactivated Comments 07/01/2020 2:32 AM 07/01/2020 6:14 PM Care Teams Cardiovascular Surgeon Relationship Specialty Start Date End Date Mauricio Shirley DO [address] [place] [address] PCP - General Family Medicine 06/09/20 Torin Prescott MD [address] [place] [address] Consulting Physician Cardiology 07/01/20
--- OUTSIDE RECORDS SUMMARY | 2025-07-20 16:01 | XMS_ITS | Clinical Summary ---
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
--- OUTSIDE RECORDS SUMMARY | 2025-07-20 16:01 | XMS_ITS | Clinical Summary ---
Author Organization [facility] [employer] Address [address] [place] [address] Care Team Providers Care Web Designer Developer Name Role Phone Jewel Edmond MD Primary Care Provider [phone] Source Comments [facility] and Associated Physician Practices is amultiple site organization consisting of ambulatory clinics and hospital sitesin [place], [place], [place] and [place]. This disclosure is being madepursuant to the Care Everywhere program and may not contain all information available regarding this patient. 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
--- OUTSIDE RECORDS SUMMARY | 2025-07-20 16:01 | XMS_ITS | Encounter Summary ---
Author Organization [facility] Address [address] [facility] [address] [place] [address] Care Team Providers Care Application Performance Engineer Name Role Phone Jewel Edmond MD Primary Care Provider [phone] Mauricio Shirley DO Primary Care Provider Torin Prescott MD Unavailable Encounter Details Date Type Department Care Team (Late st Contact Info) Description 11/08/2016 Orders Only [facility] ProviderIsaiah MD [address] [place] [id number] Social History Tobacco Use Types Packs/Day Years Used Date Smoking Tobacco: Every Day Alcohol Use Standard Drinks/Week Comments No 0 (1 standard drink = 0.6 oz pur e alcohol) Comments Unknown Sex and Gender Information Value Date Recorded Sex Assigned at Not on file 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
[2025-07-20 17:00] LABS: Albumin Level 4.4 g/dL (3.5-5.1); Anion Gap 10 mmol/L (4-12); Blood Urea Nitrogen 15 mg/dL (7-17); Calcium 10.0 mg/dL (8.4-10.2); Carbon Dioxide 33 mmol/L (22-30); Chloride 100 mmol/L (98-107); Estimated Glomerular Filt Rate 43; Glucose 122 mg/dL (65-110); Osmolality Calculated 297 mOsm/kg (285-295); Potassium 3.9 mmol/L (3.4-5.0); Sodium 143 mmol/L (137-145)
== END 2025-07-20 15:18 | disposition home or self-care (01) ==
LOC: CHSLAB 15:18
PROVIDERS: PCP Nurse Practitioner Family; Visit Provider Nurse Practitioner Family
DX: M10.9 Gout, unspecified (principal); M79.671 Pain in right foot
CPT/HCPCS: 36415; 73630; 80069; 84550